=== PATIENT | female | born 1945 | race Caucasian/White ===

== ENCOUNTER → 2017-12-08 13:27 | Outpatient (CLI) | payer MEDICARE, OTHER, SELFPAY ==
[2017-12-08 14:19] LABS: Add Manual Diff / Slide Review NO; Basophils Percent Auto 0.9 % (0-2); Eosinophils Percent Auto 4.5 % (2-4); Hematocrit 38.3 % (36-46); Lymphocytes Percent Auto 23.6 % (25-40); Mean Corpuscular HGB Conc 34.1 % (30-36); Mean Corpuscular Volume 93.8 fL (80-100); Monocytes Percent Auto 6.6 % (3-14); Neutrophils Absolute Auto 6000 /uL (3000-5900); Neutrophils Percent Auto 64.4 % (50-75); Platelet Count 262 X10^3/uL (150-400); Red Blood Cell Count 4.08 X10^6/uL (4.0-5.2); Red Cell Distribution Width 13.8 % (11.6-14.8); White Blood Cell Count 9.3 X10^3/uL (4.5-11.0)
[2017-12-08 14:35] LABS: Carbon Dioxide 24 mmol/L (22-32); Chloride 110 mmol/L (98-107); HEMOLYSIS < 15 (0-50); Potassium 4.1 mmol/L (3.4-5.1); Sodium 146 mmol/L (137-145)
== END ==
PROVIDERS: Visit Provider Orthopaedic Surgery
DX: M16.12 Unilateral primary osteoarthritis, left hip (principal); Z01.818 Encounter for other preprocedural examination; Z01.812 Encounter for preprocedural laboratory examination
CPT/HCPCS: 36415; 80051; 85025; 93005; 93010

== ENCOUNTER 2017-12-13 09:14 | Inpatient (IN) | payer MEDICARE, OTHER, SELFPAY ==
[2017-12-10 12:14] VITALS: BMI 32.1
[2017-12-13] VITALS (14 sets, daily range): BP systolic 98–140; BP diastolic 59–89; PULSE 76–108; RESP 12–20; TEMP 35.7–36.4; O2SAT 90–98; BMI 32.1
--- NOTE | 2017-12-13 06:00 | DI.RAD.S_ITS ---
PROCEDURE: XR PELVIS 1-2V INDICATIONS: prosthesis placement TECHNIQUE: Single view(s) of the pelvis acquired. COMPARISON: None. FINDINGS: Bones: Patient is status post left total hip arthroplasty. Alignment of left hip is anatomic. Mild to moderate right hip joint osteoarthritis is seen. Soft tissues: Post surgical changes are noted in the left lateral thigh soft tissue. IMPRESSION: Post surgical changes from left total hip arthroplasty with anatomic left hip alignment. Dictated by: Delta Menjivar M.D. on 12/13/2017 at 13:55 Approved by: Delta Menjivar M.D. on 12/13/2017 at 13:56
[2017-12-13] MEDS: ACETAMINOPHEN 325 MG TABLET 975 MG PO ×2 (09:53→19:57)
[2017-12-13] MEDS: PREGABALIN 75 MG CAPSULE PO (09:53)
--- NOTE | 2017-12-13 10:12 | SUR.PREOP ---
PT STATED THAT SHE HAD A TOOTH EXTRACTED LAST WEDNESDAY AND HAS BEEN ON AN ANTIBIOTIC SINCE WEDNESDAY EVENING PROPHYLACTIC. PT STATES SHE HAS NO S/SX OF INFECTION. DR. PURVIS AWARE AND STATES OK TO PROCEED. PER DR. PURVIS, ANTIBIOTIC ORDER CHANGED TO CLINDAMYCIN 900MG INSTEAD OF ANCEF 1GM RELATED TO PT ALLERGY. COMMUNICATED THIS WITH CIRCULATING RN.
[2017-12-13] MEDS: LACTATED RINGERS 1,000 ML 42 ML IV (11:00)
[2017-12-13] MEDS: CLINDAMYCIN 900 MG/50 ML PIGGYBACK 50 MG IV (11:50)
--- NOTE | 2017-12-13 11:52 | PM.PREOP ---
Pre-operative Note Interval Note Pre-op Check: Yes History & Physical Reviewed by Physician Changes: No
--- NOTE | 2017-12-13 12:36 | SUR.OPER ---
Lateral on padded OR bed. Gel axillary roll. Arms secured on padded armboard with pillow supporting top arm. Padded hip positioner braces x4 - anterior and posterior chest and pelvis. Additional gel pad used anterior pelvis. Gel pad under bottom leg from knee to foot and secured with tape over sheet.
[2017-12-13] MEDS: BUPIVACAINE 0.25% W/ EPI VIAL 50 ML INJ (13:00)
[2017-12-13] MEDS: fentaNYL 100 MCG/2 ML INJ 50 MCG IV (13:57)
--- NOTE | 2017-12-13 14:19 | PM.OP.1 ---
Operative Date/Time/Diagnoses Date of procedure: 12/13/17 Time of procedure: 12:00 Pre-op diagnosis: Left hip degenerative joint disease Post-op diagnosis: same Procedure & Clinicians Procedure: Left total hip arthroplasty (CPT code 36821 with title i assistant) Indications: Patient is an 72-year-old female with severe left hip DJD. The patient has pain with activities and at rest, limited ambulation and activity tolerance, difficulties with ADLs, and failure of conservative treatment. We have discussed the nature of condition, treatment options, risks and benefits, and patient elects to proceed with total hip arthroplasty and gives informed consent. Surgeon: Grupo Moya Application Analyst: Janet Flores Anesthesia Type: General and Spinal Operative Notes Closure Type: primary Specimen(s): none sent Implants & Drains: Acetabulum: Strickland [employer] Nephew R3 acetabular component size 54 mm Femoral component: Strickland [employer] Nephew Synergy stem size 12 with standard offset Femoral head: 36 mm + 0 cobalt chrome Estimated Blood Loss (mL): 100 Blood products transfused: none Procedure in detail: After satisfaction induction of anesthetic, and administration of IV antibiotics, the patient was positioned in the lateral decubitus position with all bony prominences well padded and pelvic position secured using a hip foot cutter positioning device. Left hip and lower extremity prepped and draped in the usual sterile fashion, 1st dose of intravenous tranexamic acid was administered, then a longitudinal incision was created centered over the greater trochanter and carried sharply through the skin and subcutaneous tissues down to the fascia estefany which was divided longitudinally and retracted with a Charnley retractor. External rotators visualize, cut, tagged, and retracted posteriorly, then the capsule was cut in a T-type fashion with the corners tagged and retracted. Hip was dislocated and femoral neck cut made according to preoperative templating. Acetabular retractors then placed, and the acetabular labrum and osteophytes were excised. The acetabulum was then sequentially reamed to 53 mm with an excellent circumferential ream and fit with the trial. The trial component was removed and a permanent size 54 mm Strickland and Nephew R3 acetabular component was selected, positioned, and impacted with satisfactory position and fixation achieved. Permanent liner was then inserted with the elevated lip directed posteriorly. Soft tissue then removed off the lateral femoral neck in the lateral neck was entered using a box osteotome. T-handled reamers placed down the canal followed by sequential broaching to 12 with the final broach left in place for trial reduction which demonstrated excellent leg length, range of motion, and stability characteristics with a 36 mm +0 trial ball. The trial and broach were removed, and a permanent size 12 Strickland and Nephew Synergy stem was selected and inserted with excellent position and fixation achieved. Another trial reduction yielded the above characteristics so the trial ball was exchanged for a permanent 36 mm +0 cobalt chrome ball. The hip was irrigated and reduced and excellent leg length range of motion and stability characteristics were achieved and maintained. The hip was copiously irrigated, and the capsule repaired with #2 Ethibond, and the piriformis was repaired back to the greater trochanter with the same. Fascia estefany closed with interrupted #1 Ethibond sutures, and the subcutaneous tissues were closed in 2 layers of 0 Vicryl and 2 0 Vicryl. Skin was closed with deion and sterile dressings applied. Second dose of tranexamic acid was administered intravenously, and the anesthetic was terminated. Complications: none Condition: stable Disposition: PACU Plan for aftercare: Patient will be admitted to the acute care ruiz, and anticipate discharge on postop day 1 with follow-up in office in 10-14 days. Outpatient physical therapy will be arranged and patient will continue to observe posterior hip precautions. Patient will continue use of postoperative Lovenox for 10 days postop.
--- NOTE | 2017-12-13 14:23 | P.OP_ITS ---
Operative Date/Time/Diagnoses Date of procedure: 12/13/17 Time of procedure: 12:00 Pre-op diagnosis: Left hip degenerative joint disease Post-op diagnosis: same Procedure & Clinicians Procedure: Left total hip arthroplasty (CPT code 85283 with periodicals library assistant) Indications: Patient is an 72-year-old female with severe left hip DJD. The patient has pain with activities and at rest, limited ambulation and activity tolerance, difficulties with ADLs, and failure of conservative treatment. We have discussed the nature of condition, treatment options, risks and benefits, and patient elects to proceed with total hip arthroplasty and gives informed consent. Surgeon: Grupo Moya Hammer Operator: Janet Flores Anesthesia Type: General and Spinal Operative Notes Closure Type: primary Specimen(s): none sent Implants & Drains: Acetabulum: Strickland [employer] Nephew R3 acetabular component size 54 mm Femoral component: Strickland [employer] Nephew Synergy stem size 12 with standard offset Femoral head: 36 mm + 0 cobalt chrome Estimated Blood Loss (mL): 100 Blood products transfused: none Procedure in detail: After satisfaction induction of anesthetic, and administration of IV antibiotics, the patient was positioned in the lateral decubitus position with all bony prominences well padded and pelvic position secured using a hip supply chain systems manager positioning device. Left hip and lower extremity prepped and draped in the usual sterile fashion, 1st dose of intravenous tranexamic acid was administered, then a longitudinal incision was created centered over the greater trochanter and carried sharply through the skin and subcutaneous tissues down to the fascia estefany which was divided longitudinally and retracted with a Charnley retractor. External rotators visualize, cut, tagged, and retracted posteriorly, then the capsule was cut in a T-type fashion with the corners tagged and retracted. Hip was dislocated and femoral neck cut made according to preoperative templating. Acetabular retractors then placed, and the acetabular labrum and osteophytes were excised. The acetabulum was then sequentially reamed to 53 mm with an excellent circumferential ream and fit with the trial. The trial component was removed and a permanent size 54 mm Strickland and Nephew R3 acetabular component was selected, positioned, and impacted with satisfactory position and fixation achieved. Permanent liner was then inserted with the elevated lip directed posteriorly. Soft tissue then removed off the lateral femoral neck in the lateral neck was entered using a box osteotome. T-handled reamers placed down the canal followed by sequential broaching to 12 with the final broach left in place for trial reduction which demonstrated excellent leg length, range of motion, and stability characteristics with a 36 mm +0 trial ball. The trial and broach were removed, and a permanent size 12 Strickland and Nephew Synergy stem was selected and inserted with excellent position and fixation achieved. Another trial reduction yielded the above characteristics so the trial ball was exchanged for a permanent 36 mm +0 cobalt chrome ball. The hip was irrigated and reduced and excellent leg length range of motion and stability characteristics were achieved and maintained. The hip was copiously irrigated, and the capsule repaired with # 2 Ethibond, and the piriformis was repaired back to the greater trochanter with the same. Fascia estefany closed with interrupted #1 Ethibond sutures, and the subcutaneous tissues were closed in 2 layers of 0 Vicryl and 2 0 Vicryl. Skin was closed with deion and sterile dressings applied. Second dose of tranexamic acid was administered intravenously, and the anesthetic was terminated. Complications: none Condition: stable Disposition: PACU Plan for aftercare: Patient will be admitted to the acute care ruiz, and anticipate discharge on postop day 1 with follow-up in office in 10-14 days. Outpatient physical therapy will be arranged and patient will continue to observe posterior hip precautions. Patient will continue use of postoperative Lovenox for 10 days postop.
[2017-12-13] MEDS: LACTATED RINGERS 1,000 ML 125 ML IV ×2 (14:51→22:59)
--- NOTE | 2017-12-13 15:52 | PC.NURSE ---
Post-op: Late entry Arrived to room 218 at 1430. Wide awake and alert, oriented X3. Dressing to L hip C/D/I. Circulation and pulses WNL, cap refill <2 sec. Still numb from spinal, but is able to move her legs and wiggle her toes a little bit. Medicated with 1 tab Vicodin for 4/10 L hip pain, ice pack in place. SCD's to BLE's. Tolerating PO's, denies N/V. IVF per orders. SpO2 on RA 94%, cont pulse ox in place. Oriented to room and call light, encouraged to make needs known. Bed alarm on.
[2017-12-13] MEDS: cephALEXin 250 MG CAPSULE 500 MG PO ×2 (16:23→21:33)
[2017-12-13] MEDS: HYDROCODONE/ACET 5/325 TABLET 1 TAB PO (19:52)
[2017-12-13] MEDS: FLUTICASONE 120 SPRAY/16 GM SPRAY.SUSP NASAL (19:53)
[2017-12-13] MEDS: OLMESARTAN 20 MG TABLET PO (19:54)
[2017-12-13] MEDS: NEBIVOLOL 2.5 MG TABLET 5 MG PO (19:54)
[2017-12-13] MEDS: ASPIRIN EC 81 MG TABLET PO (19:54)
[2017-12-13] MEDS: CEFAZOLIN 2 GM/100 ML FROZ.PIGGY IV (19:55)
[2017-12-13] MEDS: ALPRAZolam 0.25 MG TABLET PO (21:33)
--- NOTE | 2017-12-13 22:10 | CM.MNRNOTE ---
Assumed care of pt from outgoing shift. pt settled in. pt given oral meds per Jun. pt placed on 1 l nc, pt desats to 90 on 1 l while asleep, pt increased to 2 l. Pt has been up and down with oxygenation. Pt 99% on 2 l then turned down and sustains, then pt will drop to 90. Pt remains on 2L saturation 97-99%. pt using IS. discussed hip precautions. Pt taken pain med per JUN. Pt uses call light. Pt voided once with bedpan. pt ate dinner and had a snack, sandwich, cheese stick and ic cream. pt tolerated well with no compliant of nausea, advanced to regular diet in orders. no further needs at this time, will continue to monitor.
[2017-12-14] VITALS (7 sets, daily range): BP systolic 92–129; BP diastolic 54–84; PULSE 77–102; RESP 16–20; TEMP 36.5–36.7; O2SAT 95–98
[2017-12-14] MEDS: HYDROCODONE/ACET 5/325 TABLET 1 TAB PO ×5 (00:57→20:48)
[2017-12-14] MEDS: CEFAZOLIN 2 GM/100 ML FROZ.PIGGY IV (04:19)
[2017-12-14 05:28] LABS: Hematocrit 33.8 % (36-46); Hemoglobin 11.8 g/dL (12.0-16.0)
[2017-12-14] MEDS: LEVOTHYROXINE 75 MCG TABLET PO (05:47)
--- NOTE | 2017-12-14 06:09 | PC.NURSE ---
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 Assisted with 2PA, FWW and gait belt to stand and pivot to the BSC. Hip precautions maintained. Pt able to void but no BM. Pt appears dyspnic with activity, sats on RA 90%, pt reports that she has been having shortness of breath with activity for a few months. Once back into bed, medicated with prn Vicodin for 5/10 pain to left hip. Dressing to the left hip is CDI.
[2017-12-14] MEDS: ASPIRIN EC 81 MG TABLET PO ×2 (08:55→20:49)
[2017-12-14] MEDS: ENOXAPARIN 40 MG/0.4 ML SYRINGE SUBCUT (08:55)
[2017-12-14] MEDS: ACETAMINOPHEN 325 MG TABLET 975 MG PO (08:55)
[2017-12-14] MEDS: cephALEXin 250 MG CAPSULE 500 MG PO ×3 (08:55→20:48)
[2017-12-14] MEDS: SODIUM CHLORIDE 0.9% FLUSH 10 ML IV ×2 (08:57→20:48)
--- NOTE | 2017-12-14 09:02 | CM.DPC ---
Addendum entered by Micki Dawn R.N. 12/14/17 14:33: This is discharge assessment, stated continue in error. Have signed face to face, may be discharged tomorrow, will need to find out which agency she wishes to choose Original Note: DCP: Case received, EMR reviewed and met with patient. Introduced self and role. DCP template complete with information currently available. Patient is a 72 year old female who admitted yesterday morning to the care of the hospitalist team. PCP: Dr. Loza. Payer: confirmed: Medicare/Commercial Insurance. Patient came to hospital and had left total hip arthroplasty. Had been having left pain prior to surgery. Patient lives alone in [place], a few years ago. Lives in a one level home, and has several friends that are supportive. Discussed physical therapy when she goes home, and she is wanting home health to come in. Gave her a Medicare choice list to review. P: DCP to continue to assess. Plan is to go home with home health. Micki Dawn RN/Machine Joiner Cementer
[2017-12-14] MEDS: hydrOXYzine pamoate 25 MG CAPSULE PO ×2 (10:35→20:49)
--- NOTE | 2017-12-14 11:03 | PT.IIE ---
Current Diagnoses Unilateral primary osteoarthritis, left hip (12/13/17) Surgery Performed Operation Date: 12/13/17 11:45 Actual Procedures p Total Hip Arthroplasty(Left) - Grupo Moya MD Surgical History (Last Updated 12/10/17 @ 12:51 by Anita Bermudez RN) Hx of hand surgery (Acute) Status post cataract extraction of both eyes with insertion of intraocular lens (Acute) Status post complete hysterectomy (Acute) Status post surgery of both feet (Acute) Medical History (Last Updated 12/10/17 @ 12:46 by Anita Bermudez RN) Anxiety (Acute) Depression (emotion) (Acute) HTN (hypertension) (Acute) Hearing loss (Acute) Hx of tooth extraction (Acute) Hypothyroid (Acute) Irritable bowel syndrome (IBS) (Acute) Seasonal allergies (Acute) Physical Therapy Inpatient Evaluation/Re-Eval Medical Review Prior Functional Status Medical History Reviewed Yes Diet/Fluid Consistency Regular Communication no known deficits Mobility and Gait ind to mod ind w/ SPC, denies falls Activities of Daily Living and IADL's ind Social History Household Members none Living Arrangements House Number of Floors (Floors) One Floor Number of Stairs To Enter/Railing? 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 [facility] back and forth Physical Therapy Current Condition Current Condition Evaluation Date 12/14/17 Treatment Diagnosis L posterior SOWMYA - impaired mobility Onset Date 12/14/17 Precautions Posterior Hip Precautions No Hip Flexion > 90 degrees No Hip Internal Rotation No Hip Adduction Weight Bearing Status Weight Bearing Status Weight Bear as Tolerated Subjective Physical Therapy Visit Type Type Initial Evaluation Visit Start Time 09:20 Visit Stop Time 10:27 Total Visit Minutes 67 Physical Therapy Visit Comments Patient Comments Pt wasn't expecting to have this much pain s/p surgery, but reports doing well overall , very motivated. Therapy Pain Assessment Pain When Pain Assessed During Mobility Pain Present Pain Present Pain Reported Location left hip Intensity 6 Scale Used Numeric (1 - 10) Description Aching Pulling Throbbing With Movement Pain Management Techniques Apply Cold Elevation Modification of Treatment Re-positioning Timing of Activity with Medications PT-Bed Mobility Assessment Supine to Sit Supine to Sit Minimal Assistance 1 Person Assistance Scooting Scooting to Edge of Bed Standby Assistance PT-Transfer Assessment Sit to and From Stand Sit to and from Stand Minimal Assistance Equipment Transfer Assistive Device Gait Belt Front Wheeled Walker Transfers Transfer Destination Chair Transfer Technique Stand Step Pivot Transfer Ability Level of Assist Minimal Assistance Comments Mobility Comments Pt is able to go from supine to long sit without assist, but for this hospital bed pt needing assist with the LLE and pulling of stacey pad to pivot pelvis in the bed. Once to EOB, pt needing barely min A to get up to standing, cues provided for sit<>Stand technique. Gait Assessment Gait Gait Assistance Required: Contact Guard Assist Distance (Feet) (feet) 40 Assistive Devices Assistive Device Gait Belt Front Wheeled Walker Gait Deviations General Gait Pattern Antalgic Flexed Trunk Factors Limiting Gait Function Factors Limiting Gait Function Decreased Activity Tolerance Decreased Strength Pain Comments Gait Comments Pt initially using a step-to pattern, but with cues and indepth explanation offered as to rationale for reciprocal gait, pt was able to amb with full length steps. Pt does tend to have a forward trunk lean but can correct when cued . Pt very stable, no LOBs, definite use of BUE for support. Stair Climbing Assessment Comments Stair Climbing Comments not yet tested PT-Balance Assessment Sitting Balance and Reactions Static Sitting Balance Ability Normal Dynamic Sitting Balance Ability Good Standing Balance and Reactions Static Standing Balance Ability Good Dynamic Standing Balance Ability Fair Device Used FWW Orientation Orientation/Cognition Level of Alertness Alert Orientation Name Age Birthday Month Date Year Day of Week Place Situation Language Function Ability No Deficits Noted Safety Awareness Understands Safety Issues Memory Description No Deficits Noted Gross Range of Motion Upper Extremity ROM Assessment Within Functional Limits Lower Extremity ROM Assessment Within Functional Limits Impairments within hip precautions Strength Upper Extremity Strength Assessment Within Functional Limits Comments Strength Comments not formally tested, pt needing assist with LLE AROM exercises, LLE grossly 3-/5, RLE grossly 4+/5 Physical Therapy Treatment Exercises Exercises Ankle Pumps Gluteal Sets Quad Sets Heel Slides Supine Hip Abduction Education Education Provided Precautions Weight Bearing Status Post-Op Packet Safety PT Summary Assessment and Plan Potential Rehabilitation Potential Excellent Status of Condition at Evaluation Stable Summary Impairments Pain Strength Bed Mobility Transfers Gait Activity Tolerance Progress Towards Goals Progressing Toward Goals Assessment Summary Pt is POD#1 L posterior SOWMYA. Pt presents with expected weakness and pain resulting in the need for min A with all mobility. This is below pt's reported functional baseline, but pt has great potential for functional improvement. Pt will benefit from ongoing acute PT to progress mobility and have pt's sister(s) participate in family training . Pt will be safe to discharge home tomorrow once this training has occurred and will need to continue working with HHPT. Goals Bed Mobility Goal Standby Assistance Transfer Goal Standby Assistance Gait Goal Standby Assistance Front Wheel Walker Gait Distance 100 Other Goals Up/down 3 steps w/ 1 rail and CGA. Days to Meet Goals 1 Frequency of Treatment Frequency Of Treatment Twice a Day Treatment Plan Physical Therapy Treatment Plan Bed Mobility Training Transfer Training Gait Training Therapeutic Exercise Balance Retraining Post Op Education Discharge Planning Hot or Cold Pack Neuromuscular Re-ed Coordination Retraining Manual Therapy Other Recommendations and Next Treatment family training with sister(s) Focus Recommendations To Nursing Amount of Assist Needed 1 Person Assist Discharge Recommendations PT Discharge Recommendations Home with Assistance Home Health
--- NOTE | 2017-12-14 12:23 | PC.NURSE ---
day shift pt states pain controlled with PO meds. Pt not cleared by PT for d/c, will stay another night. d/c order cancelled. up in chair, using FWW. working with PT. hourly rounding provided, call light within reach.
--- NOTE | 2017-12-14 13:26 | P.PN_ITS ---
Subjective Date Patient Seen: 12/14/17 Time Patient Seen: 07:22 Interval history: Patient is postop day 1 status post left total hip arthroplasty by Dr. Moya. No complaints of much pain in the hip. Eating and drinking well and able to urinate without difficulty. States that she maybe want to go home this evening but is willing to stay if needed. She has a small animal caretaker arriving this evening. [facility] patient and has discharge medications already. Taking hydrocodone for pain. Exam Vital Signs (past 8 hours): - 12/14/17 00:34 12/14/17 04:25 12/14/17 07:15 Temperature 97.8 F 97.8 F 97.7 F Pulse Rate 102 H 97 H 77 Respiratory Rate 20 18 16 Blood Pressure 120/76 122/84 93/58 L Pulse Oximetry 98 96 96 Oxygen Delivery Method Nasal Cannula Oxygen Flow Rate 1 Narrative Exam Narrative: Patient in bed. Appears comfortable. Alert and orient x3. Left hip dressing clean dry and intact. Moderate swelling on left anterior thigh. 5/5 left ankle strength. Bilateral calves soft and nontender. Neurovascular status intact. Objective Labs Result Diagrams: 12/14/17 05:04 Labs: Laboratory Results - last 24 hr 12/14/17 05:04 Hgb 11.8 L Hct 33.8 L Assessment & Plan Post-op Postoperative Procedures Operation Date: 12/13/17 11:45 Actual Procedures Side Surgeon p Total Hip Arthroplasty Left Grupo Moya MD Postop day 1. Patient has physical therapy this morning and was recommended that she not be discharged home today by PT. Continue physical therapy. Continue DVT prophylaxis with Lovenox. Continue pain medication with hydrocodone. Anticipate discharge home tomorrow. Quality VTE Deep Vein Thrombosis/Pulmonary Embolism Present on Admission: No
--- NOTE | 2017-12-14 15:37 | PT.IPTN ---
Current Diagnoses Unilateral primary osteoarthritis, left hip (12/13/17) Surgery Performed Operation Date: 12/13/17 11:45 Actual Procedures p Total Hip Arthroplasty(Left) - Grupo Moya MD Physical Therapy Treatment Note Physical Therapy Current Condition Current Condition Evaluation Date 12/14/17 Treatment Diagnosis L posterior SOWMYA - impaired mobility Onset Date 12/14/17 Precautions Posterior Hip Precautions No Hip Flexion > 90 degrees No Hip Internal Rotation No Hip Adduction Weight Bearing Status Weight Bearing Status Weight Bear as Tolerated Subjective Physical Therapy Visit Type Type Treatment Note Visit Start Time 14:41 Visit Stop Time 15:11 Total Visit Minutes 30 Physical Therapy Visit Comments Patient Comments Pt feels like she's improving already, standing up is getting easier. Short Term Goals go home tomorrow Therapy Pain Assessment Pain When Pain Assessed During Mobility Pain Present Pain Present Pain Reported PT-Transfer Assessment Sit to and From Stand Sit to and from Stand Contact Guard Assistance Equipment Transfer Assistive Device Gait Belt Front Wheeled Walker Transfers Transfer Destination Chair Transfer Technique Stand Step Pivot Transfer Ability Level of Assist Contact Guard Assistance Comments Mobility Comments Pt is able to stand up from chair and bed with less assist , is able to do so while adhering to hip precautions. Gait Assessment Gait Gait Assistance Required: Contact Guard Assist Distance (Feet) (feet) 75 Assistive Devices Assistive Device Gait Belt Front Wheeled Walker Gait Deviations General Gait Pattern Antalgic Flexed Trunk Factors Limiting Gait Function Factors Limiting Gait Function Decreased Activity Tolerance Decreased Strength Pain Comments Gait Comments More fluid reciprocal pattern, still needs cues for upright posture. Stair Climbing Assessment Comments Stair Climbing Comments not yet tested PT-Balance Assessment Sitting Balance and Reactions Static Sitting Balance Ability Normal Dynamic Sitting Balance Ability Good Standing Balance and Reactions Static Standing Balance Ability Good Dynamic Standing Balance Ability Fair Device Used FWW Orientation Orientation/Cognition Level of Alertness Alert Orientation Name Age Birthday Month Date Year Day of Week Place Situation Language Function Ability No Deficits Noted Safety Awareness Understands Safety Issues Memory Description No Deficits Noted Gross Range of Motion Upper Extremity ROM Assessment Within Functional Limits Lower Extremity ROM Assessment Within Functional Limits Impairments within hip precautions Strength Upper Extremity Strength Assessment Within Functional Limits Comments Strength Comments not formally tested, pt needing assist with LLE AROM exercises, LLE grossly 3-/5, RLE grossly 4+/5 Physical Therapy Treatment Education Education Provided Precautions Weight Bearing Status Post-Op Packet Safety PT Summary Assessment and Plan Potential Rehabilitation Potential Excellent Status of Condition at Evaluation Stable Summary Impairments Pain Strength Bed Mobility Transfers Gait Activity Tolerance Progress Towards Goals Progressing Toward Goals Assessment Summary POD#1 L posterior SOWMYA. Pt has shown good improvement in functional mobility already. Anticipate after family training tomorrow that pt will be safe to discharge home with HHPT. Goals Bed Mobility Goal Standby Assistance Transfer Goal Standby Assistance Gait Goal Standby Assistance Front Wheel Walker Gait Distance 100 Other Goals Up/down 3 steps w/ 1 rail and CGA. Days to Meet Goals 1 Frequency of Treatment Frequency Of Treatment Twice a Day Treatment Plan Physical Therapy Treatment Plan Bed Mobility Training Transfer Training Gait Training Therapeutic Exercise Balance Retraining Post Op Education Discharge Planning Hot or Cold Pack Neuromuscular Re-ed Coordination Retraining Manual Therapy Other Recommendations and Next Treatment family training with sister(s) Focus at 930am, needs stairs Recommendations To Nursing Amount of Assist Needed 1 Person Assist
--- NOTE | 2017-12-14 16:47 | OT.IP.EVAL ---
Current Diagnoses Unilateral primary osteoarthritis, left hip (12/13/17) Surgery Performed Operation Date: 12/13/17 11:45 Actual Procedures p Total Hip Arthroplasty(Left) - Grupo Moya MD Past Medical History (Last Updated 12/10/17 @ 12:46 by Anita Bermudez, RN) Anxiety (Acute) Depression (emotion) (Acute) HTN (hypertension) (Acute) Hearing loss (Acute) Hx of tooth extraction (Acute) Hypothyroid (Acute) Irritable bowel syndrome (IBS) (Acute) Seasonal allergies (Acute) Surgical History (Last Updated 12/10/17 @ 12:51 by Anita Bermudez, DEEPAK) Hx of hand surgery (Acute) Status post cataract extraction of both eyes with insertion of intraocular lens (Acute) Status post complete hysterectomy (Acute) Status post surgery of both feet (Acute) Occupational Therapy Inpatient Evaluation/Re-Eval M1 PT/OT-IP Prior Functional Status Start: 12/14/17 08:05 Freq: NEEDED Status: Active Protocol: Document 12/14/17 15:11 RS (Rec: 12/14/17 15:37 RS [id number]) Medical Review Prior Functional Status Medical History Reviewed Yes Diet/Fluid Consistency Regular Communication no known deficits Mobility and Gait ind to mod ind w/ SPC, denies falls Activities of Daily Living and IADL's ind Social History Household Members none Living Arrangements House Number of Floors (Floors) One Floor Number of Stairs To Enter/Railing? 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 forth M2 OT-IP Current Condition Start: 12/14/17 16:24 Freq: Status: Active Protocol: Document 12/14/17 16:25 [facility] (Rec: 12/14/17 16:47 [facility] [id number]) Occupational Therapy Current Condition Current Condition Evaluation Date 12/14/17 Treatment Diagnosis Left Hip Degenerative Joint disease Diagnosis Onset Date 12/13/17 Post Operative Precautions Posterior Hip Precautions No Hip Flexion > 90 degrees No Hip Internal Rotation No Hip Adduction Weight Bearing Status Weight Bearing Status Weight Bear as Tolerated M3 OT- IP Subjective and Pain Start: 12/14/17 16:24 Freq: Status: Active Protocol: Document 12/14/17 16:25 [facility] (Rec: 12/14/17 16:47 [facility] [id number]) OT- Subjective Occupational Therapy Visit Type Type Initial Evaluation Visit Start Time 15:20 Visit Stop Time 15:50 Total Visit Minutes 30 OT Pain Assessment Pain When Pain Assessed At Rest Pain Present Pain Present Denied Pain M4 OT- IP ADL's Start: 12/14/17 16:24 Freq: Status: Active Protocol: Document 12/14/17 16:25 [facility] (Rec: 12/14/17 16:47 [facility] [id number]) OT ARI-Bkiu-Briwtig General Evaluation Self-Feeding Ability Independent OT ADL-Dressing General Eval Lower Body Dressing Ability Maximum Assistance Comments OT Dressing Comments Able to educated pt on AED for LB dressing with cnc mill set up operator and shoe horn. Recommended pt to sit to put on shoes, pt wanting to stand but still having weakness in LLE. Educated to aneta LLE first and take out last. M5 OT- IP IADL's Start: 12/14/17 16:24 Freq: Status: Active Protocol: Document 12/14/17 16:25 [facility] (Rec: 12/14/17 16:47 [facility] [email or web address]) OT-Instrumental Activities of Daily Living Home Safety Awareness Awareness of Need for Assistance at Home Good Awareness Ability to Problem Solve Emergency Able to Problem Solve Situations Home Safety Comments Pt's sister to come and stay with her to assist. M6 OT- IP Functional Cognition Start: 12/14/17 16:24 Freq: Status: Active Protocol: Document 12/14/17 16:25 [facility] (Rec: 12/14/17 16:47 [facility] [id number]) Cognitive Factors Limiting Selfcare Function Cognitive Ability Level of Alertness Alert Patient Orientation Name Place Situation Attention Span Ability Capable of Focused Attention Capable of Sustained Attention Ability to Follow Commands Able to Follow One Step Commands Memory Description Short Term Impaired Safety Awareness Decreased Ability to Apply Precautions Underestimates Need for Assistance Problem Solving Ability Needs Assist to Identify Solutions Cognitive Comments Cognitive Assessment Comments Pt a bit impulsive and needing concrete commands. Pt needing vc to recall hip precautions. OT- Vision and Hearing OT- Hearing Assessment OT- Hearing Assessment WFL M7 OT- IP Mobility and Balance Start: 12/14/17 16:24 Freq: Status: Active Protocol: Document 12/14/17 16:25 [facility] (Rec: 12/14/17 16:47 [facility] [email or web address]) OT-Transfer Assessment Sit to and From Stand Sit to and from Stand Contact Guard Assistance Transfers Transfer Ability Contact Guard Assistance Technique Transfer Destination Chair Transfer Technique Stand Step Pivot Devices Transfer Assistive Devices Gait Belt Front Wheeled Walker OT- Balance Assessment Sitting Balance and Reactions Static Sitting Balance Ability Normal Dynamic Sitting Balance Ability Good Standing Balance and Reactions Static Standing Balance Ability Good Dynamic Standing Balance Ability Fair M8 OT- IP Objective Assessments Start: 12/14/17 16:24 Freq: Status: Active Protocol: Document 12/14/17 16:25 [facility] (Rec: 12/14/17 16:47 [facility] [id number]) OT Gross Range of Motion Upper Extremity Range of Motion Assessment Within Functional Limits OT Strength Upper Extremity Strength Assessment Within Functional Limits Comments Strength Comments BUE 4+/5 OT-Muscle Tone Assessment Muscle Tone WNL Yes M9 OT- IP Assessment and Plan Start: 12/14/17 16:24 Freq: Status: Active Protocol: Document 12/14/17 16:25 [facility] (Rec: 12/14/17 16:47 [facility] [id number]) OT Summary Assessment and Plan Potential Rehabilitation Potential Excellent Analytic Complexity at Evaluation Low Summary OT Impairments Pain Strength Balance Functional Cognition Functional Mobility Dressing Toileting Bathing Toilet Transfers Shower Transfers Progress Towards Goals Slow Progress due to Pain Slow Progress due to Cognition Assessment Summary Pt Low complexity and main barrier is steps, decreased safety awareness, and needing reminders to incorporate hip precations during needs. Pt looking to go home with sister to assist when medically stable. Goals Grooming Goal Standby Assistance Dressing Goal Standby Assistance Toileting Goal Standby Assistance Bathing Goal Minimal Assistance Toilet Transfer Goal Standby Assistance Shower Transfer Goal Contact Guard Assistance Patient/Caregiver Education Goal Demonstrate Post-Op Precautions Caregiver Independent Assisting Patient Days to Meet Goals 2 Frequency of Treatment Frequency Of Treatment Once a Day Treatment Plan OT Treatment Plan ADL Training Functional Cognition Training Functional Mobility Patient/Family Education Discharge Planning Other Treatment Recommendations and Next Shower and family training. Treatment Focus Discharge Recommendations OT Discharge Recommendations Home with Assistance Home Equipment Needs shower chair, BSC, rails for steps
[2017-12-14] MEDS: FLUTICASONE 120 SPRAY/16 GM SPRAY.SUSP NASAL (20:48)
[2017-12-14] MEDS: NEBIVOLOL 2.5 MG TABLET 5 MG PO (20:48)
[2017-12-14] MEDS: OLMESARTAN 20 MG TABLET PO (20:49)
--- NOTE | 2017-12-14 22:21 | PC.NURSE ---
Assumed care of pt from outgoing shift. pt up in chair, friends in room visiting. complained of pain and given med per MAR. will continue to monitor. will assess pt after they leave. 1800- pt ate dinner. assessment completed and charted. belongings and call light within reach. still sitting in chair. coversite c.d.i. ice to site. on room air, sitting comfortably. Pt has been using IS. uses call light. waits for assistance. will continue to monitor pt for safety.
[2017-12-15] MEDS: HYDROCODONE/ACET 5/325 TABLET 1 TAB PO ×3 (01:37→13:06)
[2017-12-15 01:42] VITALS: BP 107/64; PULSE 77; RESP 16; TEMP 36.7; O2SAT 98
[2017-12-15] MEDS: ALPRAZolam 0.25 MG TABLET PO (01:48)
[2017-12-15 06:18] VITALS: BP 122/51; PULSE 80; RESP 16; TEMP 36.8; O2SAT 99
[2017-12-15] MEDS: LEVOTHYROXINE 75 MCG TABLET PO (06:20)
--- NOTE | 2017-12-15 07:59 | P.DS_ITS ---
History of Present Illness Date Patient Seen: 12/15/17 Time Patient Seen: 07:53 Chief complaint: [id number] Narrative: Details of the H&P can be found in the electronic chart. Discharge Providers Date of admission: 12/13/17 09:14 Consults: 12/13/17 14:39 Consult to Discharge Planning Routine Comment: Consult to Physical Therapy Evaluate & Treat Comment: Physician Instructions: post op SOWMYA protocol Consult to Respiratory Therapy Evaluate & Treat Comment: Physician Instructions: Evaluate and treat 12/13/17 14:55 Consult to Respiratory Therapy Evaluate & Treat Comment: Physician Instructions: Evaluate and treat 12/14/17 14:22 Consult to Occupational Therapy Evaluate & Treat Comment: Physician Instructions: Evaluate and treat Discharge provider: Mei Henderson PA-C Summary Discharge Diagnosis: Left hip osteoarthritis Hospital Course: Patient was admitted and taken to the operating room where she had a left total hip arthroplasty by Dr. Moya. She recovered well and transferred to the floor for further care. By postop day 2 patient was ambulating well, eating and drinking well, pain under control, and was ready to be discharged home. She will be discharged home with home health physical therapy. A prescription for Lovenox 40 mg daily for 8 days given. She is a [facility] patient and has her discharge pain prescription already, [place] 5mg. She has her 1st postoperative appointment already scheduled. Status at Discharge Cognitive/behavioral status at discharge: Alert and orient x3 Functional status at discharge: uses cane/walker Overall status at discharge: patient is progressing back to baseline Time Spent with Patient Less than 30 minutes Exam Vital Signs (past 8 hours): - 12/15/17 01:42 12/15/17 06:18 Temperature 98.1 F 98.2 F Pulse Rate 77 80 Respiratory Rate 16 16 Blood Pressure 107/64 122/51 L Pulse Oximetry 98 99 Oxygen Delivery Method Room Air Oxygen Flow Rate 0 Narrative Exam Narrative: Patient in bed. Alert and orient x3. Appears comfortable. Left hip dressing clean, dry and intact. Moderate swelling in left thigh. Bilateral calves soft and nontender. 5/5 left ankle strength. Neurovascular status intact. Objective Labs Result Diagrams: 12/14/17 05:04 Discharge Plan Discharge Plan Patient Disposition: Home Health Service Discharge comment: Take Lovenox for 8 days then start ASA 81mg daily. Do not take more than 4000mg of Tylenol per day from all sources. Discharge Med Rec/Prescriptions Prescriptions: New acetaminophen 325 mg Tablet 650 mg PO DAILY PRN (Reason: Pain (Scale Score 4-6)) Qty: 60 RF: 0 hydrocodone-acetaminophen 5-325 mg Tablet 1 tab PO Q4HR PRN (Reason: Pain, Moderate (4-6)) Qty: 60 RF: 0 enoxaparin [Lovenox] 40 mg/0.4 mL Syringe 40 mg subcut DAILY 9 Days Qty: 9 RF: 0 Continue alprazolam [Xanax] 0.25 mg Tablet 0.25 mg PO DAILY PRN (Reason: Anxiety) RF: 0 fluticasone [Flonase Allergy Relief] 50 mcg/actuation [place],Suspension 1 spray INTRANASAL BEDTIME RF: 0 olmesartan [Benicar] 20 mg Tablet 20 mg PO BEDTIME RF: 0 nebivolol [Bystolic] 10 mg Tablet 5 mg PO BEDTIME RF: 0 levothyroxine 75 mcg Capsule 75 mcg PO DAILY RF: 0 cephalexin [Keflex] 500 mg Capsule 500 mg PO TID RF: 0 Discontinued acetaminophen [Tylenol Extra Strength] 500 mg Tablet 1,000 mg PO Q6H PRN (Reason: pain) RF: 0 Follow up/Referrals: Grupo Moya MD [Physician] - (Follow-up at scheduled appointment time. Contact office with any issues or concerns.) Provider Discharge Instructions Diet: Diet as Tolerated Activity: Activity as tolerated. Continue home exercises. Posterior hip dislocation precautions. Ambulate with assistance of a walker/cane. Cold/Heat Therapy: Apply ice to the extremity as needed for pain or inflammation. Skin/Wound/Dressing Care Report to your healthcare provider any signs of infection, such as:: chills, fever, increased pain and unusual drainage Dressing: Keep dressing clean, dry and intact. Visit Report/Discharge Packet Instructions: DI for Hip Replacement Discharge Data Attending Provider: Grupo Moya Admit Date/Time: 12/13/17 09:14 Quality VTE Deep Vein Thrombosis/Pulmonary Embolism Present on Admission: No
[2017-12-15 08:00] VITALS: BP 116/56; PULSE 78; RESP 18; TEMP 36.6; O2SAT 98
[2017-12-15] MEDS: ASPIRIN EC 81 MG TABLET PO (09:14)
[2017-12-15] MEDS: cephALEXin 250 MG CAPSULE 500 MG PO (09:14)
[2017-12-15] MEDS: ACETAMINOPHEN 325 MG TABLET 975 MG PO (09:16)
[2017-12-15] MEDS: ENOXAPARIN 40 MG/0.4 ML SYRINGE SUBCUT (09:16)
[2017-12-15] MEDS: SODIUM CHLORIDE 0.9% FLUSH 10 ML IV (09:17)
--- NOTE | 2017-12-15 11:15 | PT.IPTN ---
Current Diagnoses Unilateral primary osteoarthritis, left hip (12/13/17) Surgery Performed Operation Date: 12/13/17 11:45 Actual Procedures p Total Hip Arthroplasty(Left) - Grupo Moya MD Physical Therapy Treatment Note M2 PT-IP Current Condition Start: 12/14/17 08:05 Freq: NEEDED Status: Active Protocol: Document 12/14/17 15:11 RS (Rec: 12/14/17 15:37 RS [id number]) Physical Therapy Current Condition Current Condition Evaluation Date 12/14/17 Treatment Diagnosis L posterior SOWMYA - impaired mobility Onset Date 12/14/17 Precautions Posterior Hip Precautions No Hip Flexion > 90 degrees No Hip Internal Rotation No Hip Adduction Weight Bearing Status Weight Bearing Status Weight Bear as Tolerated M3 PT-IP Subjective Start: 12/14/17 08:05 Freq: NEEDED Status: Active Protocol: Document 12/15/17 11:15 GGD (Rec: 12/15/17 12:39 GGD [id number]) Subjective Physical Therapy Visit Type Type Treatment Note Visit Start Time 10:35 Visit Stop Time 11:15 Total Visit Minutes 40 Number of MS SQL DEVELOPER Visits 1 Physical Therapy Visit Comments Patient Comments Pt states that she can go into the house from back door without stairs. Therapy Pain Assessment Pain When Pain Assessed At Rest Pain Present Pain Present Pain Reported Location left hip Intensity 3 Scale Used Numeric (1 - 10) Pain Management Techniques Modification of Treatment Re-positioning Timing of Activity with Medications M4 PT-IP Mobility and Gait Start: 12/14/17 08:05 Freq: NEEDED Status: Active Protocol: Document 12/15/17 11:15 GGD (Rec: 12/15/17 12:39 GGD [id number]) PT-Bed Mobility Assessment Supine to Sit Supine to Sit Minimal Assistance 1 Person Assistance Sit to Supine Sit to Supine Minimal Assistance 1 Person Assistance Scooting Scooting to Edge of Bed Standby Assistance PT-Transfer Assessment Sit to and From Stand Sit to and from Stand Standby Assistance Use of Upper Extremities Equipment Transfer Assistive Device Gait Belt Front Wheeled Walker Transfers Transfer Destination Chair Transfer Ability Level of Assist Contact Guard Assistance Comments Mobility Comments Pt needed min A for L LE for bed mobility. home health caregiver training for bed mobility. Gait Assessment Gait Gait Assistance Required: Contact Guard Assist Distance (Feet) (feet) 50 Assistive Devices Assistive Device Gait Belt Front Wheeled Walker Gait Deviations General Gait Pattern Antalgic Factors Limiting Gait Function Factors Limiting Gait Function Decreased Strength Limited Range of Motion Pain M5 PT-IP Objective Assessments Start: 12/14/17 08:05 Freq: NEEDED Status: Active Protocol: Document 12/14/17 10:27 RS (Rec: 12/14/17 11:03 RS [id number]) Orientation Orientation/Cognition Level of Alertness Alert Orientation Name Age Birthday Month Date Year Day of Week Place Situation Language Function Ability No Deficits Noted Safety Awareness Understands Safety Issues Memory Description No Deficits Noted Gross Range of Motion Upper Extremity ROM Assessment Within Functional Limits Lower Extremity ROM Assessment Within Functional Limits Impairments within hip precautions Strength Upper Extremity Strength Assessment Within Functional Limits Comments Strength Comments not formally tested, pt needing assist with LLE AROM exercises, LLE grossly 3-/5, RLE grossly 4+/5 M6 PT-IP Treatment Start: 12/14/17 08:05 Freq: NEEDED Status: Active Protocol: Document 12/15/17 11:15 GGD (Rec: 12/15/17 12:39 GGD [id number]) Physical Therapy Treatment Exercises Exercises Ankle Pumps Gluteal Sets Quad Sets Education Education Provided Precautions Safety M7 PT-IP Assessment and Plan Start: 12/14/17 08:05 Freq: NEEDED Status: Active Protocol: Document 12/15/17 11:15 GGD (Rec: 12/15/17 12:39 GGD [id number]) PT Summary Assessment and Plan Summary Assessment Summary Pt improving with mobility. She was safe with transfer and gait. She had no LOB with gait. Caregiver was able to assist with bed mobility and use of leg screw machine set up operator tool. Frequency of Treatment Frequency Of Treatment Twice a Day Treatment Plan Physical Therapy Treatment Plan Bed Mobility Training Transfer Training Gait Training Therapeutic Exercise Balance Retraining Post Op Education Discharge Planning Hot or Cold Pack Neuromuscular Re-ed Coordination Retraining Manual Therapy Other Recommendations and Next Treatment family training with sister(s) Focus at 930am, Recommendations To Nursing Amount of Assist Needed 1 Person Assist Discharge Recommendations PT Discharge Recommendations Home with Assistance Home Health
--- NOTE | 2017-12-15 11:52 | CM.DPC ---
DCP: continued: case received, d/c to home order noted. Spoke with ortho LOIDA Hurley who noted pt would be fine to go home with PT and that noo other disciplines were recommend by the ortho physician team at this time. Met now with pt after EMR review. Face/Face completed. Confirmed pt has a PCP in [place] but not in [place]. She resides in [place] only 4 months of year, will return to [place] in Jan. /Medicare/choice list: given. Decision: [facility] ([facility] has no availability with PT for several days. [facility] is full [facility] accepts case and expects to go out by Sunday 12/17). Pt is updated. PT orders are obtained. [facility] is faxing all needed referral info now. P: home today, sister and friend taking her and provided supportive care at home.
--- NOTE | 2017-12-15 12:23 | OT.IP.TRT ---
Current Diagnoses Unilateral primary osteoarthritis, left hip (12/13/17) Surgery Performed Operation Date: 12/13/17 11:45 Actual Procedures p Total Hip Arthroplasty(Left) - Grupo Moya MD Occupational Therapy Treatment Note M2 OT-IP Current Condition Start: 12/14/17 16:24 Freq: Status: Active Protocol: Document 12/14/17 16:25 [facility] (Rec: 12/14/17 16:47 [facility] [id number]) Occupational Therapy Current Condition Current Condition Evaluation Date 12/14/17 Treatment Diagnosis Left Hip Degenerative Joint disease Diagnosis Onset Date 12/13/17 Post Operative Precautions Posterior Hip Precautions No Hip Flexion > 90 degrees No Hip Internal Rotation No Hip Adduction Weight Bearing Status Weight Bearing Status Weight Bear as Tolerated M3 OT- IP Subjective and Pain Start: 12/14/17 16:24 Freq: Status: Active Protocol: Document 12/15/17 12:09 [facility] (Rec: 12/15/17 12:22 [facility] [id number]) OT- Subjective Occupational Therapy Visit Type Type Treatment Note Visit Start Time 09:37 Visit Stop Time 10:17 Total Visit Minutes 40 Occupational Therapy Visit Comments Patient Comments Pt wanting to shower prior to going home, sister and friend present for training. OT Pain Assessment Pain When Pain Assessed At Rest Pain Present Pain Present Denied Pain M4 OT- IP ADL's Start: 12/14/17 16:24 Freq: Status: Active Protocol: Document 12/15/17 12:09 [facility] (Rec: 12/15/17 12:22 [facility] [id number]) OT ADL-Dressing General Eval Upper Body Dressing Ability Standby Assistance Lower Body Dressing Ability Moderate Assistance Areas Needing Assistance Underpants/Brief Pants/Shorts Shoes Comments OT Dressing Comments Pt not having the patience to use pilot safety inspector to assist for dressing needs. Therefore sister assist to place clothing items over her feet. Emphasized the importance of hip precautions of not bending more than 90 degrees and best to use pilot safety inspector if help with dressing. OT ADL-Toileting General Evaluation Toileting Ability Contact Guard Assistance Devices Toileting Assistive Devices Commode Comments OT Toileting Comments CGA for balance while pt doing pericare needs, again recommended to stand for hygiene as less likely to break hip precautions. OT ADL-Bathing Bathing Type Bathing Type Shower General Evaluation Bathing Ability Minimal Assistance Areas Needing Assistance Retrieving/Setting Up Items Devices Bathing Equipment Shower Chair with Arms Grab Bars Comments OT Bathing Comments Heavy use of grab bars for balance while standing to shower. Pt insisting on standing the whole time, still recommend shower chair for safety. Pt's sister able to to stand by for pt's balance while standing for showering needs. M5 OT- IP IADL's Start: 12/14/17 16:24 Freq: Status: Active Protocol: Document 12/14/17 16:25 [facility] (Rec: 12/14/17 16:47 [facility] [id number]) OT-Instrumental Activities of Daily Living Home Safety Awareness Awareness of Need for Assistance at Home Good Awareness Ability to Problem Solve Emergency Able to Problem Solve Situations Home Safety Comments Pt's sister to come and stay with her to assist. M6 OT- IP Functional Cognition Start: 12/14/17 16:24 Freq: Status: Active Protocol: Document 12/15/17 12:09 [facility] (Rec: 12/15/17 12:22 [facility] [id number]) Cognitive Factors Limiting Selfcare Function Cognitive Ability Level of Alertness Alert Patient Orientation Name Place Situation Attention Span Ability Capable of Focused Attention Capable of Sustained Attention Ability to Follow Commands Able to Follow Multi-Step Commands Memory Description Working Impaired Safety Awareness Decreased Ability to Apply Precautions Underestimates Need for Assistance Cognitive Comments Cognitive Assessment Comments Pt needs reminders to incorporate hip precautions for all needs. Sister states to have BSC next to bed or have pt ring a lopez for assist . Otherwise helpful to turn light on at night if having to use the bathroom. M7 OT- IP Mobility and Balance Start: 12/14/17 16:24 Freq: Status: Active Protocol: Document 12/15/17 12:09 [facility] (Rec: 12/15/17 12:22 [facility] [id number]) OT-Transfer Assessment Sit to and From Stand Sit to and from Stand Standby Assistance Contact Guard Assistance Transfers Transfer Ability Standby Assistance Contact Guard Assistance Technique Transfer Destination Chair Transfer Technique Stand Step Pivot Devices Transfer Assistive Devices Gait Belt Front Wheeled Walker OT- Balance Assessment Sitting Balance and Reactions Static Sitting Balance Ability Normal Dynamic Sitting Balance Ability Good Standing Balance and Reactions Static Standing Balance Ability Good Dynamic Standing Balance Ability Fair M8 OT- IP Objective Assessments Start: 12/14/17 16:24 Freq: Status: Active Protocol: Document 12/14/17 16:25 [facility] (Rec: 12/14/17 16:47 [facility] [id number]) OT Gross Range of Motion Upper Extremity Range of Motion Assessment Within Functional Limits OT Strength Upper Extremity Strength Assessment Within Functional Limits Comments Strength Comments BUE 4+/5 OT-Muscle Tone Assessment Muscle Tone WNL Yes M9 OT- IP Assessment and Plan Start: 12/14/17 16:24 Freq: Status: Active Protocol: Document 12/15/17 12:09 [facility] (Rec: 12/15/17 12:22 [facility] [id number]) OT Summary Assessment and Plan Goals Days to Meet Goals 1 Frequency of Treatment Frequency Of Treatment Once a Day Treatment Plan Other Treatment Recommendations and Next Pt being discharged today, pt' Treatment Focus s sister and friend stating good understanding to assist pt for all OT needs. Discharge Recommendations OT Discharge Recommendations Home with Assistance Home Equipment Needs shower chair, BSC, rails for steps
--- NOTE | 2017-12-15 13:40 | PC.NURSE ---
Patient ready for discharge to home with friend and sister. Reports having follow up appointment scheduled. Coversite dressing to left hip CDI upon discharge. Lovenox teaching completed this morning and patient able to administer to herself per teach back and demonstration, prescription given to patient. Patient states understanding of instructions and home care handouts and has no further questions or concerns at this time.
== END 2017-12-15 13:43 | disposition home health service (06) | DRG 470 ==
PROVIDERS: Admitting Provider Orthopaedic Surgery; Visit Provider Orthopaedic Surgery
PROC: 0SRB0JZ Replacement of Left Hip Joint with Synthetic Substitute, Open Approach (ICD-10-PCS; CPT 27130; principal; 2017-12-13 11:45)
DX: M16.12 Unilateral primary osteoarthritis, left hip (principal); I10 Essential (primary) hypertension; F41.9 Anxiety disorder, unspecified; E03.9 Hypothyroidism, unspecified
CPT/HCPCS: 36415; 72170; 85014; 85018; 94760; 97110; 97116; 97161; 97165; 97530; 97535; C1776; J0690; J1100; J1650; J2250; J2405; J2704; J3010

== ENCOUNTER 2017-12-29 09:12 | Emergency (ER) | payer MEDICARE, OTHER, SELFPAY ==
[2017-12-13 14:56] VITALS: BMI 32.1
[2017-12-29] VITALS (11 sets, daily range): BP systolic 123–149; BP diastolic 79–95; PULSE 98–114; RESP 16–22; TEMP 36.8; O2SAT 92–100
--- NOTE | 2017-12-29 09:14 | ED_ITS ---
HPI - Syncope General Chief Complaint: Syncope Stated Complaint: SOB-Syncope Time Seen by Provider: 12/29/17 09:13 Source: patient Mode of arrival: ambulatory Limitations: no limitations History of Present Illness HPI narrative: Patient is a otherwise healthy 72-year-old female here for evaluation of shortness of breath and syncopal episode this morning. Patient states she is 10 days status post a left total hip arthroplasty. She states that this morning she woke up went into the restroom in urinated. She then stood up been looked into the mere and started to not feel very well. She went over and sat on the bed and then had to lay back. She states that she did lose consciousness. Did not hit her head. No seizure-like activity. No loss of bowel or bladder. Return to normal almost immediately after regaining consciousness. Since then she has had shortness of breath and a vague chest discomfort. No lower extremity swelling. No fevers. Related Data Home Medications Medication Instructions Recorded Confirmed alprazolam [Xanax] 0.25 mg PO DAILY PRN 12/10/17 12/29/17 fluticasone [Flonase Allergy 1 spray INTRANASAL BEDTIME 12/10/17 12/29/17 Relief] levothyroxine 75 mcg PO DAILY 12/10/17 12/29/17 nebivolol [Bystolic] 5 mg PO DAILY 12/10/17 12/29/17 aspirin 81 mg PO BID 12/29/17 12/29/17 hydroxyzine pamoate 25 mg PO QID PRN 12/29/17 12/29/17 olmesartan 20 mg PO DAILY 12/29/17 12/29/17 oxycodone 5 mg PO Q4-6H PRN 12/29/17 12/29/17 oxycodone-acetaminophen 1 - 2 tab PO Q4-6H PRN 12/29/17 12/29/17 Previous Rx's Medication Instructions Recorded acetaminophen 650 mg PO DAILY PRN #60 tab 12/14/17 Allergies Allergy/AdvReac Type Severity Reaction Status Date / Time Penicillins Allergy Mild Rash Verified 12/29/17 11:22 Sulfa (Sulfonamide Allergy Mild Rash Verified 12/29/17 11:22 Antibiotics) etodolac Allergy Blister Verified 12/29/17 11:22 hydroxyzine Allergy Verified 12/29/17 11:22 iodine Allergy Verified 12/29/17 12:08 NSAIDS (Non-Steroidal AdvReac Mild Tachycardia Verified 12/29/17 11:22 Anti-Inflamma Review of Systems Constitutional Denies fever(s) and Denies headache(s) ENT Ears, Nose, Mouth, and Throat: Denies vertigo, Denies dizziness and Denies headache(s) Cardiovascular Reports chest pain, Reports syncope, Denies irregular heart rhythm, Denies claudication, Denies leg edema, Denies palpitations and Reports dyspnea Respiratory Denies chest congestion, Denies cough, Reports dyspnea and Denies wheezing Gastrointestinal Gastrointestinal: Denies abdominal pain, Denies change in bowel habits, Denies nausea and Denies vomiting Musculoskeletal Denies myalgias, Denies arthralgias, Denies numbness and Denies tingling Integumentary/Breasts Denies lesions and Denies rash Neurologic Denies confusion, Denies vertigo, Denies dizziness, Reports syncope, Denies headache(s), Denies numbness, Denies seizure-like activity, Denies sensory deficit, Denies tingling and Denies paresthesias Psychiatric Reports anxiety and Denies confusion Endocrine Denies palpitations Hematologic/Lymphatic Denies easy bleeding and Denies easy bruising Allergic/Immunologic Denies wheezing [facility] Medical History Anxiety (Acute) Depression (emotion) (Acute) HTN (hypertension) (Acute) Hearing loss (Acute) Hx of tooth extraction (Acute) Hypothyroid (Acute) Irritable bowel syndrome (IBS) (Acute) Seasonal allergies (Acute) Surgical History Hx of hand surgery (Acute) Status post cataract extraction of both eyes with insertion of intraocular lens (Acute) Status post complete hysterectomy (Acute) Status post surgery of both feet (Acute) Exam Initial Vital Signs Initial Vital Signs: Vital Signs Temperature 98.3 F 12/29/17 09:23 Pulse Rate 112 H 12/29/17 09:23 Respiratory Rate 20 12/29/17 09:23 Blood Pressure 133/91 H 12/29/17 09:23 Pulse Oximetry 100 12/29/17 09:23 Const General: cooperative, comfortable, well developed, well groomed and No in distress Orientation: alert, awake and oriented x3 HENMT Head: normal to inspection and normocephalic Chest Chest: normal inspection of the chest Resp Effort & Inspection: no audible wheezes, not labored, no respiratory distress, no retractions and tachypneic Auscultation: clear to auscultation bilaterally Cardio Rate: tachycardic Rhythm: regular rhythm Heart Sounds: no murmurs Pulses: radial pulses present GI Inspection: non-distended Palpation: soft, No firm and No tender Skin Lesions: no lesions Rashes: no rashes Neuro General: alert, awake and oriented x3 Cognition: normal cognition Speech: speech normal Extrem General: normal to inspection, capillary refill normal and No edema Psych Appearance: grossly normal and well kempt Course Orders Ordered: ED Orders 12/29/17 09:20 EKG-12 Lead Stat 12/29/17 09:30 B Type Natriuretic Peptide Stat Thyroid Stimulating Hormone Stat Troponin I Stat 12/29/17 09:31 Complete Blood Count AUTO DIFF Stat Comprehensive Metabolic Panel Stat Lipase Stat Partial Thromboplastin Time Stat Prothrombin Time INR Stat 12/29/17 10:10 CT angio chest PE protocol Stat Heparin Sodium/Dextrose (Heparin Drip) 25,000 unit in 500 mls @ 22.861 mls/hr IV CONT MILLA; Protocol Last Admin: 12/29/17 11:34 Dose: 12 units/kg/hr, 22.861 mls/hr Discontinued Medications Heparin Sodium (Porcine) (Heparin) 5,700 unit 60 unit/kg (5700 unit) IV NOW ONE Stop: 12/29/17 11:13 Last Admin: 12/29/17 11:34 Dose: 5,700 unit Sodium Chloride (Normal Saline 0.9%) 1,000 mls @ 1,000 mls/hr IV BOLUS ONE Stop: 12/29/17 10:13 Last Admin: 12/29/17 09:35 Dose: 1,000 mls/hr Lorazepam (Ativan) 0.5 mg PO NOW ONE Stop: 12/29/17 12:03 Vital Signs - 8 hr 12/29/17 09:23 12/29/17 09:30 12/29/17 10:00 Temperature 98.3 F Pulse Rate 112 H 106 H 107 H Respiratory Rate 20 16 16 Blood Pressure 133/91 H Blood Pressure [Right Arm] 123/80 131/86 Pulse Oximetry 100 96 98 12/29/17 10:30 12/29/17 11:00 12/29/17 11:10 Temperature 98.3 F Pulse Rate 98 H 103 H 107 H Respiratory Rate 17 17 16 Blood Pressure 133/91 H Blood Pressure [Right Arm] 132/88 135/79 Pulse Oximetry 96 96 98 12/29/17 11:30 Temperature Pulse Rate 107 H Respiratory Rate 19 Blood Pressure Blood Pressure [Right Arm] 139/84 Pulse Oximetry 98 MDM - Syncope Medical Records Attestation: I reviewed the patient's medical records. Lab Data Attestation: I reviewed the patient's lab results. Result diagrams: 12/29/17 09:31 12/29/17 09:31 Lab Results 12/29/17 12/29/17 12/29/17 Range/Units 09:30 09:30 09:31 WBC 11.3 H (4.5-11.0) X10^3/uL RBC 3.88 L (4.0-5.2) X10^6/uL Hgb 12.2 (12.0-16.0) g/dL Hct 36.3 (36-46) % MCV 93.5 (80-100) fL MCH 31.3 (26-34) PG MCHC 33.5 (30-36) % RDW 14.1 (11.6-14.8) % Plt Count 398 (150-400) X10^3/uL Neut % (Auto) 77.2 H (50-75) % Lymph % (Auto) 15.0 L (25-40) % Hudspeth % (Auto) 5.0 (3-14) % Eos % (Auto) 2.1 (2-4) % Baso % (Auto) 0.7 (0-2) % Neut # (Auto) 8700 H (2213-1857) /uL PT (10.1-12.7) SECONDS INR (0.9-1.3) APTT (26.4-36.2) SECONDS Sodium (137-145) mmol/L Potassium (3.4-5.1) mmol/L Chloride (98-107) mmol/L Carbon Dioxide (22-32) mmol/L BUN (7-17) mg/dL Creatinine (0.52-1.04) mg/dL Estimated GFR (>60) mL/min BUN/Creatinine Ratio (6-22) Glucose (80-110) mg/dL Calcium (8.4-10.2) mg/dL Total Bilirubin (0.2-1.3) mg/dL AST (14-36) IU/L ALT (9-52) IU/L Alkaline Phosphatase (38-126) U/L Troponin I 0.043 H (0.01-0.034) ng/mL B-Natriuretic Peptide 388.0 H (<100) Total Protein (6.3-8.2) g/dL Albumin (3.5-5.0) g/dL Globulin (1.7-4.1) g/dL Albumin/Globulin Ratio (1.0-2.8) Lipase (23-300) U/L 12/29/17 12/29/17 Range/Units 09:31 09:31 WBC (4.5-11.0) X10^3/uL RBC (4.0-5.2) X10^6/uL Hgb (12.0-16.0) g/dL Hct (36-46) % MCV (80-100) fL MCH (26-34) PG MCHC (30-36) % RDW (11.6-14.8) % Plt Count (150-400) X10^3/uL Neut % (Auto) (50-75) % Lymph % (Auto) (25-40) % Hudspeth % (Auto) (3-14) % Eos % (Auto) (2-4) % Baso % (Auto) (0-2) % Neut # (Auto) (8283-1047) /uL PT 13.6 H (10.1-12.7) SECONDS INR 1.2 (0.9-1.3) APTT 28 (26.4-36.2) SECONDS Sodium 146 H (137-145) mmol/L Potassium 3.7 (3.4-5.1) mmol/L Chloride 109 H (98-107) mmol/L Carbon Dioxide 22 (22-32) mmol/L BUN 15 (7-17) mg/dL Creatinine 0.90 (0.52-1.04) mg/dL Estimated GFR > 60.0 (>60) mL/min BUN/Creatinine Ratio 16.7 (6-22) Glucose 141 H (80-110) mg/dL Calcium 9.0 (8.4-10.2) mg/dL Total Bilirubin 0.6 (0.2-1.3) mg/dL AST 27 (14-36) IU/L ALT 29 (9-52) IU/L Alkaline Phosphatase 98 (38-126) U/L Troponin I (0.01-0.034) ng/mL B-Natriuretic Peptide (<100) Total Protein 6.9 (6.3-8.2) g/dL Albumin 4.0 (3.5-5.0) g/dL Globulin 2.9 (1.7-4.1) g/dL Albumin/Globulin Ratio 1.4 (1.0-2.8) Lipase 39 (23-300) U/L Imaging Data CT scan - chest: Radiologist's impression: PROCEDURE: CT ANGIO CHEST PE PROTOCOL INDICATIONS: Chest pain, shortness of breath, tachycardia TECHNIQUE: After the administration of intravenous contrast, 2 mm thick sections acquired from the pulmonary apices to the posterior costophrenic angles. 3-dimensional maximum intensity projection (MIP) coronal and sagittal reformats were then acquired through the thorax. For radiation dose reduction, the following was used: automated exposure control, adjustment of mA and/or kV according to patient size. COMPARISON: None. FINDINGS: Image quality: Diagnostic. Pulmonary arteries: Numerous intraluminal filling defects are identified within the bilateral pulmonary arteries, more prominent involving the right lower lobe pulmonary arteries. No saddle embolism is evident. Mild enlargement of the main pulmonary arterial trunk is identified, measuring up to approximately 3.7 cm in diameter. No definite thrombus is seen within the right ventricle. No definite bowing of the intra-atrial septum it is evident that the heart. Mild prominence of the right atrium is noted. Lungs and pleura: Scattered areas of groundglass attenuation are evident throughout the lungs, predominantly seen within the perihilar regions. No lobar consolidation , effusion, or pneumothorax is evident. No lung masses identified. No definitive pulmonary nodules are appreciated. Mediastinum: Heart size is normal, without pericardial effusion. No mediastinal or hilar adenopathy. Thoracic aorta is normal in caliber and enhancement. Mild aortic atherosclerosis is present. A Esophagus is normal in caliber, without hiatal hernia. Bones and chest wall: No suspicious bony lesions. Ribs and thoracic spine appear intact throughout. Moderate multilevel degenerative changes of the mid spine are more prominent involving the lower thoracic levels. Thyroid gland is not enlarged or adequately evaluated. No axillary or supraclavicular adenopathy. Abdomen: Visualized upper abdominal solid organs appear normal in the early arterial phase of enhancement. IMPRESSION: 1. Numerous bilateral pulmonary emboli with moderate embolic load. Mild enlargement of the right atrium and main pulmonary arterial trunk may be related to pulmonary hypertension from these emboli. 2. Mammogram glass attenuation within the perihilar regions is felt to be related to pulmonary emboli. No definite pneumonia. Note: Findings were discussed with Dr. Mendez at 1030 hours (PST) on 12/29/17. Dictated by: Zaki Sauer M.D. on 12/29/2017 at 9:27 Approved by: Zaki Sauer M.D. on 12/29/2017 at 9:33 ECG Data Attestation: I personally reviewed and interpreted this ECG as follows: Prior ECG tracings: not available for review Interpretation: Sinus tachycardia Ventricular rate of 109 Normal axis Normal QRS Normal QTC Nonspecific ST T wave changes MDM Narrative Medical decision making narrative: Patient with CT scan showing bilateral pulmonary embolus with a slightly elevated troponin and also BNP. Concern for right heart strain. Patient feels much better when she is on 2 L of oxygen by nasal cannula. Patient was started on heparin. Discussed the case with Dr. Puri with Internal Medicine at [facility] who accepts the patient in transfer after she discussed the case with the ICU provider and also pulmonology. I discussed the transfer with the patient who expressed understanding and agreement. Discharge Plan Departure Patient Disposition: [facility] Clinical Impression: Bilateral pulmonary embolism, Syncope, Chest pain Prescriptions: No Action alprazolam [Xanax] 0.25 mg Tablet 0.25 mg PO DAILY PRN (Reason: Anxiety) RF: 0 fluticasone [Flonase Allergy Relief] 50 mcg/actuation [place],Suspension 1 spray INTRANASAL BEDTIME RF: 0 nebivolol [Bystolic] 10 mg Tablet 5 mg PO DAILY RF: 0 levothyroxine 75 mcg Capsule 75 mcg PO DAILY RF: 0 acetaminophen 325 mg Tablet 650 mg PO DAILY PRN (Reason: Pain (Scale Score 4-6)) Qty: 60 RF: 0 aspirin 81 mg Tablet,Delayed Release (Dr/Ec) 81 mg PO BID RF: 0 oxycodone-acetaminophen 5-325 mg Tablet 1 - 2 tab PO Q4-6H PRN (Reason: pain) RF: 0 oxycodone 5 mg Tablet 5 mg PO Q4-6H PRN (Reason: pain) RF: 0 hydroxyzine pamoate 25 mg Capsule 25 mg PO QID PRN (Reason: nausea/muscle spasm) RF: 0 olmesartan 20 mg Tablet 20 mg PO DAILY RF: 0
[2017-12-29] MEDS: SODIUM CHLORIDE 0.9% 1,000 ML 1000 ML IV (09:35)
[2017-12-29 09:42] LABS: Add Manual Diff / Slide Review NO; Basophils Percent Auto 0.7 % (0-2); Eosinophils Percent Auto 2.1 % (2-4); Hematocrit 36.3 % (36-46); Hemoglobin 12.2 g/dL (12.0-16.0); Mean Corpuscular HGB Conc 33.5 % (30-36); Mean Corpuscular Hemoglobin 31.3 PG (26-34); Mean Corpuscular Volume 93.5 fL (80-100); Neutrophils Absolute Auto 8700 /uL (3000-5900); Neutrophils Percent Auto 77.2 % (50-75); Platelet Count 398 X10^3/uL (150-400); Red Blood Cell Count 3.88 X10^6/uL (4.0-5.2); Red Cell Distribution Width 14.1 % (11.6-14.8); White Blood Cell Count 11.3 X10^3/uL (4.5-11.0)
[2017-12-29 09:49] LABS: INR 1.2 (0.9-1.3); Prothrombin Time 13.6 SECONDS (10.1-12.7)
[2017-12-29 09:52] LABS: PTT Partial Thromboplastin Tim 28 SECONDS (26.4-36.2)
[2017-12-29 09:54] LABS: Alanine Aminotransferase 29 IU/L (9-52); Albumin Globulin Ratio 1.4 (1.0-2.8); Alkaline Phosphatase 98 U/L (38-126); Aspartate Aminotransferase 27 IU/L (14-36); BUN Creatinine Ratio 16.7 (6-22); Bilirubin Total 0.6 mg/dL (0.2-1.3); Blood Urea Nitrogen 15 mg/dL (7-17); Carbon Dioxide 22 mmol/L (22-32); Chloride 109 mmol/L (98-107); Estimated Glomerular Filt Rate > 60.0 mL/min (>60); Globulin 2.9 g/dL (1.7-4.1); Glucose 141 mg/dL (80-110); HEMOLYSIS < 15 (0-50); Lipase 39 U/L (23-300); Potassium 3.7 mmol/L (3.4-5.1); Sodium 146 mmol/L (137-145); Total Protein 6.9 g/dL (6.3-8.2)
--- NOTE | 2017-12-29 10:10 | DI.CT.S_ITS ---
PROCEDURE: CT ANGIO CHEST PE PROTOCOL INDICATIONS: Chest pain, shortness of breath, tachycardia TECHNIQUE: After the administration of intravenous contrast, 2 mm thick sections acquired from the pulmonary apices to the posterior costophrenic angles. 3-dimensional maximum intensity projection (MIP) coronal and sagittal reformats were then acquired through the thorax. For radiation dose reduction, the following was used: automated exposure control, adjustment of mA and/or kV according to patient size. COMPARISON: None. FINDINGS: Image quality: Diagnostic. Pulmonary arteries: Numerous intraluminal filling defects are identified within the bilateral pulmonary arteries, more prominent involving the right lower lobe pulmonary arteries. No saddle embolism is evident. Mild enlargement of the main pulmonary arterial trunk is identified, measuring up to approximately 3.7 cm in diameter. No definite thrombus is seen within the right ventricle. No definite bowing of the intra-atrial septum it is evident that the heart. Mild prominence of the right atrium is noted. Lungs and pleura: Scattered areas of groundglass attenuation are evident throughout the lungs, predominantly seen within the perihilar regions. No lobar consolidation, effusion, or pneumothorax is evident. No lung masses identified. No definitive pulmonary nodules are appreciated. Mediastinum: Heart size is normal, without pericardial effusion. No mediastinal or hilar adenopathy. Thoracic aorta is normal in caliber and enhancement. Mild aortic atherosclerosis is present. A Esophagus is normal in caliber, without hiatal hernia. Bones and chest wall: No suspicious bony lesions. Ribs and thoracic spine appear intact throughout. Moderate multilevel degenerative changes of the mid spine are more prominent involving the lower thoracic levels. Thyroid gland is not enlarged or adequately evaluated. No axillary or supraclavicular adenopathy. Abdomen: Visualized upper abdominal solid organs appear normal in the early arterial phase of enhancement. IMPRESSION: 1. Numerous bilateral pulmonary emboli with moderate embolic load. Mild enlargement of the right atrium and main pulmonary arterial trunk may be related to pulmonary hypertension from these emboli. 2. Mammogram glass attenuation within the perihilar regions is felt to be related to pulmonary emboli. No definite pneumonia. Note: Findings were discussed with Dr. Mendez at 1030 hours (PST) on 12/29/17. Dictated by: Zaki Sauer M.D. on 12/29/2017 at 9:27 Approved by: Zaki Sauer M.D. on 12/29/2017 at 9:33
[2017-12-29 10:59] LABS: Troponin I 0.043 ng/mL (0.01-0.034)
[2017-12-29] MEDS: HEPARIN 5,000 UNIT/ML VIAL 5700 UNIT IV (11:34)
[2017-12-29] MEDS: HEPARIN DRIP 25,000 UNIT/500 ML IV.SOLN 22.861 UNIT IV (11:34)
[2017-12-29 12:14] LABS: Thyroid Stimulating Hormone 3.96 uIU/mL (0.47-4.68)
[2017-12-29] MEDS: LORazepam 0.5 MG TABLET PO (12:33)
--- NOTE | 2018-01-02 08:27 | PC.NURSE ---
Heparin and normal saline DC'd at 1310
== END 2017-12-29 13:55 | disposition short-term general hospital (02) ==
PROVIDERS: Emergency Provider Emergency Medicine
DX: I26.99 Other pulmonary embolism without acute cor pulmonale (principal); R55 Syncope and collapse; R07.89 Other chest pain
CPT/HCPCS: 71275; 80053; 83690; 83880; 84443; 84484; 85025; 85610; 85730; 93005; 96361; 96365; 96366; 99284; 99285; J1644; Q9967

== ENCOUNTER → 2019-04-21 10:55 | Outpatient (CLI) | payer MEDICARE, BC, SELFPAY ==
[2017-12-13 14:56] VITALS: BMI 32.1
--- NOTE | 2019-04-21 11:49 | PM.TREADMILL ---
Cardiac Stress Test Report Referral & Results Date Patient Seen: 04/21/19 Time Patient Seen: 11:50 Requesting provider: Yen Asencio Indication: Dyspnea Rest ECG: Normal sinus rhythm Procedure Note: Patient exercised for 2:25 achieving 100% of target heart rate. Max heart rate at peak exercise was 136 bpm. Patient reported dyspnea and fatigue at peak exercise. No chest pain or anginal symptoms. No significant ECG changes at peak exercise. Impression: Normal non-nuclear exercise stress test. Physican to review. Please note: Actual ECG tracings can be found in the PACS system.
== END ==
PROVIDERS: Visit Provider Internal Medicine Cardiovascular Disease
DX: R06.00 Dyspnea, unspecified (principal); R00.0 Tachycardia, unspecified
CPT/HCPCS: 93016; 93017; 93018

== ENCOUNTER 2019-12-18 11:21 | Emergency (ER) | payer MEDICARE, BC, SELFPAY ==
[2017-12-13 14:56] VITALS: BMI 32.1
[2019-12-18 11:38] VITALS: BP 132/73; PULSE 90; RESP 19; TEMP 36.4; O2SAT 97
--- NOTE | 2019-12-18 11:41 | DI.RAD.S_ITS ---
PROCEDURE: XR KNEE RT 3V INDICATIONS: atraumatic pain. TECHNIQUE: 3 views of the knee were acquired. COMPARISON: None. FINDINGS: Bones: No fractures or dislocations. No suspicious bony lesions. There is moderate medial femorotibial joint space narrowing seen, with associated remodeling changes including subchondral sclerosis and osteophyte formation along the jointline. On the sunrise view, there is mild to moderate lateral patellofemoral joint space narrowing seen. Osteophyte formation can be seen along the margins of the patella. Soft tissues: There is a moderate joint effusion. No suspicious soft tissue calcifications. 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 There is a moderate joint effusion. Dictated by: Andrew Meek M.D. on 12/18/2019 at 11:21 Approved by: Andrew Meek M.D. on 12/18/2019 at 11:22
[2019-12-18 14:30] VITALS: BP 129/85; PULSE 101; O2SAT 97
--- NOTE | 2019-12-18 23:53 | ED.LOWEXIN ---
HPI - Extremity Injury (Lower) <Nicolas HollisOUSMANE Maria - Last Filed: 12/19/19 00:12> General Chief Complaint: Extremity Injury, Lower Stated Complaint: Right knee cannot bare weight Time Seen by Provider: 12/18/19 14:01 Source: patient Mode of arrival: Ambulatory Limitations: no limitations History of Present Illness HPI Narrative: This is a 74-year-old female, nonsmoker, who presents to ED with friend with chief complain of right knee discomfort which has been progressively worst that started 2 weeks ago and swelling. Patient denies known trauma or injury to affected leg. Patient reports increasing pain with weight-bearing, ambulation and changing in position from resting to full weightbear on affected leg. Patient used to walk daily until last 2 weeks. Patient denies fever, chills, nausea or vomiting, redness, warmth to affected leg. Patient has history of arthritis in joints. She has been taking Tylenol 2 tabs about twice a day and using Voltaren gel a few times a day. Also had used ice and CBD oil on affected side with some relief. Patient was trying to be seen by Dr. Moya at [facility] but unsuccessful. Patient had left hip surgery from arthritis by Dr. Moya several years ago. Patient is currently taking is rale to with history of pulmonary embolism. Related Data Home Medications Medication Instructions Recorded Confirmed alprazolam [Xanax] 0.25 mg PO DAILY PRN 12/10/17 12/29/17 fluticasone propionate [Flonase 1 spray INTRANASAL BEDTIME 12/10/17 12/29/17 Allergy Relief] levothyroxine 12/19/19 rivaroxaban [Xarelto] mg 12/19/19 Previous Rx's Medication Instructions Recorded acetaminophen 650 mg PO DAILY PRN #60 tab 12/14/17 Allergies Allergy/AdvReac Type Severity Reaction Status Date / Time Penicillins Allergy Mild Rash Verified 12/18/19 11:41 Sulfa (Sulfonamide Allergy Mild Rash Verified 12/18/19 11:41 Antibiotics) etodolac Allergy Blister Verified 12/18/19 11:41 hydroxyzine Allergy Verified 12/18/19 11:41 iodine Allergy Verified 12/29/17 12:08 NSAIDS (Non-Steroidal AdvReac Mild Tachycardia Verified 12/18/19 11:41 Anti-Inflamma Review of Systems <OUSMANE Earl - Last Filed: 12/19/19 00:12> Review of Systems Narrative: General: Denies fever, chills, fatigue, malaise, sweats. HEENT: Denies sinus pain, ear pain, sore throat, difficulty swallowing, dizziness. Respiratory: Denies dyspnea, cough, wheezing, hemoptysis, sputum. Cardiovascular: Denies chest pain, palpitations, orthopnea, edema. Gastrointestinal: Denies nausea, vomiting, abdominal pain, diarrhea, constipation, melena. : Denies dysuria, frequency, incontinence, hematuria, urinary retention. Musculoskeletal: See HPI Skin: Denies rash, skin lesions, or other. Neurologic: Denies weakness, headache, numbness, change in speech, confusion, seizures, incoordination. Psychiatric: No concerning psychosocial issues. 12-point review of systems is negative except for those stated above. Patient History <OUSMANE Earl - Last Filed: 12/19/19 00:12> Medical History Anxiety (Acute) Arthritis (Acute) Depression (emotion) (Acute) Hearing loss (Acute) HTN (hypertension) (Acute) Hypothyroid (Acute) Irritable bowel syndrome (IBS) (Acute) Pulmonary embolism (Acute) Seasonal allergies (Acute) Surgical History History of hip surgery (Acute) Hx of hand surgery (Acute) Hx of tooth extraction (Acute) Status post cataract extraction of both eyes with insertion of intraocular lens (Acute) Status post complete hysterectomy (Acute) Status post surgery of both feet (Acute) Social History household members: none Smoking Status: Never smoker alcohol intake: current Smoking Status: Never smoker alcohol intake frequency: 0-2 drinks per day Substance Use Type: does not use Exam <OUSMANE Earl - Last Filed: 12/19/19 00:12> Narrative Exam Narrative: General appearance: well developed, well nourished, in no acute distress. Head: normocephalic, atraumatic, no scalp lesions, non-tender. ENT: Hearing grossly intact. Nose without bleeding, purulent discharge. Airway patent. Neck/Thyroid: neck supple, full range of motion, no visible masses or meningeal signs. No JVD, non-tender without lymphadenopathy. Skin: no suspicious rashes, lesions over visible areas. Warm and dry and appropriate color for ethnicity. Heart: no clubbing, no cyanosis, no edema. S1 and S2 normal. RRR w/o murmurs, clicks, or bruits. Lungs: Breathing even and unlabored. No stridor. No accessory muscles used. Able to speak in full sentences. Chest: normal shape and expansion. Abdomen: non-obese, non-distended. Neurologic: alert and oriented. Cognitive exam, [employer] and PNS grossly intact on informal exam. Psych: good eye contact, normal affect. Initial Vital Signs Initial Vital Signs: Vital Signs Temperature 97.6 F 12/18/19 11:38 Pulse Rate 90 12/18/19 11:38 Respiratory Rate 19 12/18/19 11:38 Blood Pressure 132/73 12/18/19 11:38 Pulse Oximetry 97 12/18/19 11:38 Extrem Right lower extremity: knee Details: normal to inspection, tenderness Location: of the pre-patellar area and of the infrapatellar area, swelling Location: of the pre-patellar area, normal ROM, knee ligament exam normal and other (No erythema); no deformity and no unusual warmth, lower leg Details: normal to inspection; no tenderness and no localized swelling and foot Details: normal capillary refill, normal to inspection, toes with normal ROM, vascular exam Details: dorsalis pedis pulse present and motor-sensory exam Details: light-touch normal; no tenderness <Ravi Lovett MD - Last Filed: 01/02/20 09:07> Initial Vital Signs Initial Vital Signs: Vital Signs Temperature 97.6 F 12/18/19 11:38 Pulse Rate 90 12/18/19 11:38 Respiratory Rate 12/18/19 11:38 Blood Pressure 132/73 12/18/19 11:38 Pulse Oximetry 97 12/18/19 11:38 Scores <OUSMANE Earl - Last Filed: 12/19/19 00:12> GCS Jeff coma scale eye opening: Spontaneous Jeff coma scale verbal response: Orientated [place] coma scale motor response: Obey commands [place] coma scale total score: 15 MDM - Extremity Injury (Lower) <OUSMANE Earl - Last Filed: 12/19/19 00:12> Differential Diagnosis Differential diagnosis: Likely acute internal derangement of knee and other (Knee strain, knee fracture, knee effusion, ) Medical Records Attestation: I reviewed the patient's medical records. Imaging Data XR-Knee RT: Radiologist's Impression: [address] [address] XRay Report Signed Patient: Rosario Bundy DMR#: [id number] : 7Acct:[id number] Age/Sex: 74 / FDate of Service: 12/18/19 Loc: ED Accession Number: [id number] Procedure: XR knee RT 3V Ordering Provider: Ravi Lovett MD PROCEDURE: XR KNEE RT 3V INDICATIONS: atraumatic pain. TECHNIQUE: 3 views of the knee were acquired. COMPARISON: None. FINDINGS: Bones: No fractures or dislocations. No suspicious bony lesions. There is moderate medial femorotibial joint space narrowing seen, with associated remodeling changes including subchondral sclerosis and osteophyte formation along the jointline. On the sunrise view, there is mild to moderate lateral patellofemoral joint space narrowing seen. Osteophyte formation can be seen along the margins of the patella. Soft tissues: There is a moderate joint effusion. No suspicious soft tissue calcifications. 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 There is a moderate joint effusion. Dictated by: Andrew Meek M.D. on 12/18/2019 at 11:21 Approved by: Andrew Meek M.D. on 12/18/2019 at 11:22 [facility] Narrative Medical decision making narrative: This is a 74 year female presents to ED with right knee nontraumatic pain for last 2 weeks which has been progressively worst with feeling of swelling internally. Patient is intact sensation, mobility, distal pulses. X-ray test shows osteoarthritis degenerative changes which are most prominent involving medial femoral tibial compartment with moderate joint effusion. Physical exam without warmth, redness, significant swelling to affected knee. Patient is currently using Tylenol twice a day with Voltaren gel. Offered knee brace or Prashant wrap but patient reports she has a couple of days at home. Advised to use this for support and discomfort. RICE therapy disccused with patient and to use Tylenol up to 3 to 4 times a day as needed for discomfort. Patient is using Voltaren gel and she is currently taking Xarelto for history of pulmonary embolism. Patient uses a cane for ambulation assistance. Return precautions were discussed with patient and advise follow with [facility] orthopedist and primary care physician for possible further imaging test, her to physical therapist as needed. Patient verbalized understanding and agreement with the treatment plan. Discharge Plan Departure Patient Disposition: Home Clinical Impression: Knee pain, Effusion of knee Discharge Date/Time: 12/18/19 14:32 Instructions: DI for Knee Effusion, DI for Knee Pain Activity Restrictions/Additional Instructions: You have been diagnosed with [right knee pain and effusion. X-ray test does not show fractures or dislocations but osteoarthritis degenerative changes with moderate joint effusion]. What to do: *Take your medications as directed. Please continue to use Tylenol 650-1000 mg up to 3 to 4 times a day as needed for pain. Use Voltaren gel on affected site for 3 to 4 times a day as needed for pain and inflammation. Use knee brace that you have at home and limit bearing weight on affected leg if there is pain. You can elevate affected leg and cool pack as needed during rest. *Follow up with your primary care provider/orthopedist in 2-3 days, call for an appointment. Let them know you were seen in the ED and that we asked you to be seen in follow up. *Return to ED if you have any new, worsening, or concerning symptoms, such as [worsening pain, numbness/tingling/weakness to affected leg, fever, increasing redness or warmth on affected knee, chest pain, breathing difficulty or any acute concerns]. Prescriptions: No Action Xarelto 20 mg tablet RF: 0 levothyroxine 75 mcg tablet RF: 0 alprazolam [Xanax] 0.25 mg Tablet 0.25 mg PO DAILY PRN (Reason: Anxiety) RF: 0 fluticasone propionate [Flonase Allergy Relief] 50 mcg/actuation [place],Suspension 1 spray INTRANASAL BEDTIME RF: 0 acetaminophen 325 mg Tablet 650 mg PO DAILY PRN (Reason: Pain (Scale Score 4-6)) Qty: 60 RF: 0 Referrals: Karoline Hill ARNP [Primary Care Provider] - Grupo oMya MD [Physician] -
== END 2019-12-18 14:32 | disposition home or self-care (01) ==
PROVIDERS: Emergency Provider Nurse Practitioner Family; PCP Nurse Practitioner
DX: M25.461 Effusion, right knee (principal); M25.561 Pain in right knee
CPT/HCPCS: 73562; 99283

== ENCOUNTER 2020-02-10 16:41 | Emergency (ER) | payer MEDICARE, BC, SELFPAY ==
[2017-12-13 14:56] VITALS: BMI 32.1
[2020-02-10] VITALS (11 sets, daily range): BP systolic 149–173; BP diastolic 88–114; PULSE 92–105; RESP 19–27; TEMP 36.6; O2SAT 94–97
--- NOTE | 2020-02-10 16:59 | DI.RAD.S_ITS ---
PROCEDURE: XR CHEST 1V INDICATIONS: SOB TECHNIQUE: One view of the chest was acquired. COMPARISON: [facility], CR, XR CHEST 1 VIEW, 01/02/2018, 10:10. FINDINGS: Surgical changes and devices: None. Lungs and pleura: Lungs are clear. No pleural effusions or pneumothorax. Mediastinum: Mediastinal contours appear normal. Heart size is enlarged. Bones and chest wall: No suspicious bony lesions. Overlying soft tissues appear unremarkable. IMPRESSION: Mild cardiomegaly. No acute cardiopulmonary abnormalities. Dictated by: Tommy Davila M.D. on 02/10/2020 at 16:56 Approved by: Tommy Davila M.D. on 02/10/2020 at 17:09
--- NOTE | 2020-02-10 17:05 | ED_ITS ---
HPI - SOB/Dyspnea <OUSMANE Chavez - Last Filed: 02/10/20 20:54> General Chief Complaint: Shortness of Breath/Dyspnea Stated Complaint: stopped a medication, having reactions Time Seen by Provider: 02/10/20 16:48 Source: patient Mode of arrival: Family Vehicle Limitations: no limitations History of Present Illness HPI Narrative: 74yo female presents to the emergency department for shortness of breath on exertion that started today. She states she has discontinued her Eliquis for the past 2.5 weeks as she is having her tooth pulled. She has a history of a PE. This morning she woke up and noticed shortness of breath that is worse when she ambulates. She is concerned about a PE. She denies taking any hormones, denies any long trips, denies any leg swelling. Patient denies a ny chest pain, dizziness, nausea, vomiting, diarrhea, or any other concerns. Related Data Home Medications Medication Instructions Recorded Confirmed alprazolam [Xanax] 0.25 mg PO DAILY PRN 12/10/17 12/29/17 fluticasone propionate [Flonase 1 spray INTRANASAL BEDTIME 12/10/17 12/29/17 Allergy Relief] levothyroxine 12/19/19 rivaroxaban [Xarelto] mg 12/19/19 Previous Rx's Medication Instructions Recorded acetaminophen 650 mg PO DAILY PRN #60 tab 12/14/17 Allergies Allergy/AdvReac Type Severity Reaction Status Date / Time Penicillins Allergy Mild Rash Verified 02/10/20 17:05 Sulfa (Sulfonamide Allergy Mild Rash Verified 02/10/20 17:05 Antibiotics) etodolac Allergy Blister Verified 02/10/20 17:05 hydroxyzine Allergy Verified 02/10/20 17:05 iodine Allergy Verified 02/10/20 17:05 NSAIDS (Non-Steroidal AdvReac Mild Tachycardia Verified 02/10/20 17:05 Anti-Inflamma Review of Systems <OUSMANE Chavez - Last Filed: 02/10/20 20:54> Review of Systems Narrative: REVIEW OF SYSTEMS: GENERAL: Denies fevers. HENT: No head trauma or hearing loss. EYES: No loss of vision, double vision, eye pain, irritation or discharge. CARDIOVASCULAR: No chest pain or syncope. RESPIRATORY: Reports shortness of breath, see HPI. GASTROINTESTINAL: No nausea, vomiting, diarrhea, or constipation. MUSCULOSKELETAL: No weakness or injury. INTEGUMENTARY: No rash, lesions, or pruritus. NEURO: No memory loss, or confusion. Patient History <OUSMANE Chavez - Last Filed: 02/10/20 20:54> Medical History Anxiety (Acute) Arthritis (Acute) Depression (emotion) (Acute) Hearing loss (Acute) HTN (hypertension) (Acute) Hypothyroid (Acute) Irritable bowel syndrome (IBS) (Acute) Pulmonary embolism (Acute) Seasonal allergies (Acute) Surgical History History of hip surgery (Acute) Hx of hand surgery (Acute) Hx of tooth extraction (Acute) Status post cataract extraction of both eyes with insertion of intraocular lens (Acute) Status post complete hysterectomy (Acute) Status post surgery of both feet (Acute) Social History household members: none Smoking Status: Former smoker alcohol intake: current Smoking Status: Former smoker alcohol intake frequency: 0-2 drinks per day Substance Use Type: does not use Exam <OUSMANE Chavez - Last Filed: 02/10/20 20:54> Initial Vital Signs Initial Vital Signs: Vital Signs Temperature 97.8 F 02/10/20 16:50 Pulse Rate 105 H 02/10/20 16:50 Respiratory Rate 20 02/10/20 16:50 Blood Pressure 173/107 H 02/10/20 16:50 Pulse Oximetry 95 02/10/20 16:50 PHYSICAL EXAMINATION: GENERAL: Well groomed, alert, and cooperative. Answers questions promptly and appropriately. Vital signs noted. HENT: Normocephalic, atraumatic. Ear canals patent. EYES: Conjunctiva pink, sclera white, no periorbital swelling. No discharge. CHEST: Normal to inspection and without deformities. CARDIOVASCULAR: S1 and S2 sounds normal. Regular rate and rhythm, no murmurs, clicks, or bruits. RESPIRATORY: Normal respiratory rate, trachea midline, airway patent. No stridor, nasal flaring or accessory muscle use. Able to speak in full sentences. Lungs are clear in all dunn without wheeze, rhonchi, or crackles. MUSCULOSKELETAL: Normal gait and coordination. Equal tone and mass bilaterally. EXTREMITIES: Moves all extremities. SKIN: Warm, dry, soft, appropriate color for ethnicity. No lesions, rashes, or wounds to visualized areas. NEURO: Alert and Oriented X 3. Good coordination. No ataxia or cognitive issues. PSYCH: Appropriate affect and mood. <Mj Pickering DO - Last Filed: 02/11/20 00:46> Initial Vital Signs Initial Vital Signs: Vital Signs Temperature 97.8 F 02/10/20 16:50 Pulse Rate 105 H 02/10/20 16:50 Respiratory Rate 20 02/10/20 16:50 Blood Pressure 173/107 H 02/10/20 16:50 Pulse Oximetry 95 02/10/20 16:50 Scores <OUSMANE Chavez - Last Filed: 02/10/20 20:54> PERC Score Age greater than or equal to 50 years: Yes Heart rate greater than or equal to 100 bpm: Yes Room Air O2 Sat less than 95%: No Unilateral leg swelling: No Recent trauma or surgery: No Hemoptysis: No Prior PE or DVT: Yes Hormone Use: No Total PERC Score: 3 Wells' Criteria for PE Clinical signs and symptoms of DVT: No PE is #1 Dx or equally likely: Yes Heart rate > 100: Yes Immobilization at least 3 days or surg in previous 4 weeks: No History of PE or DVT: Yes Hemoptysis: No Malignancy w/Treatment within 6 months or palliative: No Wells' PE Score total: 6.0 Course <OUSMANE Chavez - Last Filed: 02/10/20 20:54> Course Course Narrative: 1809: Patient updated on plan of care, discuss transfer, consented to [facility] transfer. Hospitalist called by Dr. Pickering, suggest transfer due to heart strain and lack of annual giving manager. Dr Pickering spoke with Dr. Vasquez from [facility], accepts patient. Heparin started per conversation, ALS transport called. Orders Ordered: ED Orders 02/10/20 16:59 XR chest 1V Stat EKG-12 Lead Stat 02/10/20 17:03 Complete Blood Count AUTO DIFF Stat Comprehensive Metabolic Panel Stat D Dimer Stat NT-proBNP (BNP-Adult 18+) Stat Partial Thromboplastin Time Stat Prothrombin Time INR Stat Troponin & CK Cardiac Panel Stat 02/10/20 17:11 COVID19 -ED/INPAT/OR/L&D Stat 02/10/20 18:01 CT angio chest PE protocol Stat Discontinued Medications Heparin Sodium (Porcine) (Heparin) 7,500 unit IV NOW ONE Stop: 02/10/20 19:32 Last Admin: 02/10/20 20:04 Dose: 7,500 unit Documented by: RMARTIN Sodium Chloride (Normal Saline 0.9%) 1,000 mls @ 500 mls/hr IV BOLUS ONE Stop: 02/10/20 20:00 Last Infusion: 02/10/20 20:32 Dose: 0 mls/hr Documented by: Admin: 02/10/20 18:07 Dose: 500 mls/hr Documented by: RMARTIN Heparin Sodium/Dextrose (Heparin Drip) 25,000 unit in 500 mls @ 35.748 mls/hr I V CONT MILLA; Protocol Last Titration: 02/10/20 21:22 Dose: 0 units/kg/hr, 0 mls/hr Documented by: Admin: 02/10/20 20:05 Dose: 18 units/kg/hr, 35.748 mls/hr Documented by: RMLEONARDA Paroxetine HCl (Paxil) 10 mg PO DAILY MILLA Paroxetine HCl (Paxil) 10 mg PO NOW ONE Stop: 02/10/20 20:48 Last Admin: 02/10/20 20:58 Dose: 10 mg Documented by: JOSE Consultations Consultation #1: Patient staffed with Dr. Pickering, discussed test, test results, plan of care. Vital Signs Vital signs: Vital Signs - 8 hr 02/10/20 16:50 02/10/20 17:41 02/10/20 18:00 Temperature 97.8 F Pulse Rate 105 H 97 H 96 H Respiratory Rate 20 24 20 Blood Pressure 173/107 H 151/88 H Pulse Oximetry 95 95 96 02/10/20 18:23 02/10/20 18:29 02/10/20 18:30 Temperature Pulse Rate 96 H 96 H 94 H Respiratory Rate 25 H 25 H 19 Blood Pressure 156/104 H 149/101 H 152/96 H Pulse Oximetry 97 94 95 02/10/20 19:00 02/10/20 19:30 02/10/20 19:32 Temperature Pulse Rate 93 H 92 H 96 H Respiratory Rate 24 25 H 27 H Blood Pressure 159/106 H 167/114 H 169/113 H Pulse Oximetry 96 95 96 02/10/20 20:00 02/10/20 20:30 Temperature Pulse Rate 94 H 95 H Respiratory Rate 20 23 Blood Pressure 165/104 H 155/103 H Pulse Oximetry 94 95 <Mj Pickering DO - Last Filed: 02/11/20 00:46> Orders Ordered: ED Orders 02/10/20 16:59 XR chest 1V Stat EKG-12 Lead Stat 02/10/20 17:03 Complete Blood Count AUTO DIFF Stat Comprehensive Metabolic Panel Stat D Dimer Stat NT-proBNP (BNP-Adult 18+) Stat Partial Thromboplastin Time Stat Prothrombin Time INR Stat Troponin & CK Cardiac Panel Stat 02/10/20 17:11 COVID19 -ED/INPAT/OR/L&D Stat 02/10/20 18:01 CT angio chest PE protocol Stat Discontinued Medications Heparin Sodium (Porcine) (Heparin) 7,500 unit IV NOW ONE Stop: 02/10/20 19:32 Last Admin: 02/10/20 20:04 Dose: 7,500 unit Documented by: TAIWOIN Sodium Chloride (Normal Saline 0.9%) 1,000 mls @ 500 mls/hr IV BOLUS ONE Stop: 02/10/20 20:00 Last Infusion: 02/10/20 20:32 Dose: 0 mls/hr Documented by: Admin: 02/10/20 18:07 Dose: 500 mls/hr Documented by: JOSE Heparin Sodium/Dextrose (Heparin Drip) 25,000 unit in 500 mls @ 35.748 mls/hr IV CONT MILLA; Protocol Last Titration: 02/10/20 21:22 Dose: 0 units/kg/hr, 0 mls/hr Documented by: Admin: 02/10/20 20:05 Dose: 18 units/kg/hr, 35.748 mls/hr Documented by: JOSE Paroxetine HCl (Paxil) 10 mg PO DAILY MILLA Paroxetine HCl (Paxil) 10 mg PO NOW ONE Stop: 02/10/20 20:48 Last Admin: 02/10/20 20:58 Dose: 10 mg Documented by: JOSE Vital Signs Vital signs: Vital Signs - 8 hr 02/10/20 16:50 02/10/20 17:41 02/10/20 18:00 Temperature 97.8 F Pulse Rate 105 H 97 H 96 H Respiratory Rate 20 24 20 Blood Pressure 173/107 H 151/88 H Pulse Oximetry 95 95 96 02/10/20 18:23 02/10/20 18:29 02/10/20 18:30 Temperature Pulse Rate 96 H 96 H 94 H Respiratory Rate 25 H 25 H 19 Blood Pressure 156/104 H 149/101 H 152/96 H Pulse Oximetry 97 94 95 02/10/20 19:00 02/10/20 19:30 02/10/20 19:32 Temperature Pulse Rate 93 H 92 H 96 H Respiratory Rate 24 25 H 27 H Blood Pressure 159/106 H 167/114 H 169/113 H Pulse Oximetry 96 95 96 02/10/20 20:00 02/10/20 20:30 Temperature Pulse Rate 94 H 95 H Respiratory Rate 20 23 Blood Pressure 165/104 H 155/103 H Pulse Oximetry 94 95 MDM - SOB/Dyspnea <OUSMANE Chavez - Last Filed: 02/10/20 20:54> Medical Records Attestation: I reviewed the patient's medical records. Lab Data Attestation: I reviewed the patient's lab results. Result diagrams: 02/10/20 17:03 02/10/20 17:03 Labs: Lab Results 02/10/20 02/10/20 02/10/20 Range/Units 17:03 17:03 17:03 WBC 10.6 (4.5-11.0) X10^3/uL RBC 4.12 (4.0-5.2) X10^6/uL Hgb 13.2 (12.0-16.0) g/dL Hct 38.9 (36-46) % MCV 94.4 (80-100) fL MCH 32.1 (26-34) PG MCHC 34.0 (30-36) % RDW 14.4 (11.6-14.8) % Plt Count 276 (150-400) X10^3/uL Neut % (Auto) 65.6 (50-75) % Lymph % (Auto) 24.4 L (25-40) % [place] % (Auto) 6.6 (3-14) % Eos % (Auto) 2.8 (2-4) % Baso % (Auto) 0.6 (0-2) % Neut # (Auto) 7000 (5160-2377) /uL Lymph # (Auto) 2600 (4410-0555) /uL [place] # (Auto) 700 (0-900) /uL Eos # (Auto) 300 (0-450) /uL Baso # (Auto) 100 (0-100) /uL PT (10.1-12.7) SECONDS INR (0.9-1.3) APTT (26.4-36.2) SECONDS D-Dimer 1905 H (<230) ng/mL Sodium (137-145) mmol/L Potassium (3.4-5.1) mmol/L Chloride (98-107) mmol/L Carbon Dioxide (22-32) mmol/L BUN (7-17) mg/dL Creatinine (0.52-1.04) mg/dL Estimated GFR (>60) mL/min BUN/Creatinine Ratio (6-22) Glucose (80-110) mg/dL Calcium (8.4-10.2) mg/dL Total Bilirubin (0.2-1.3) mg/dL AST (14-36) IU/L ALT (<35) IU/L Alkaline Phosphatase (38-126) U/L Total Creatine Kinase 76 (30-135) U/L CK-MB (CK-2) TNP CK-MB (CK-2) Rel Index TNP Troponin I 0.124 H* (0.01-0.034) ng/mL NT-Pro-B Natriuret Pep (<125) pg/mL Total Protein (6.3-8.2) g/dL Albumin (3.5-5.0) g/dL Globulin (1.7-4.1) g/dL Albumin/Globulin Ratio (1.0-2.8) COVID-19 PCR (Negative) 02/10/20 02/10/20 02/10/20 Range/Units 17:03 17:03 17:03 WBC (4.5-11.0) X10^3/uL RBC (4.0-5.2) X10^6/uL Hgb (12.0-16.0) g/dL Hct (36-46) % MCV (80-100) fL MCH (26-34) PG MCHC (30-36) % RDW (11.6-14.8) % Plt Count (150-400) X10^3/uL Neut % (Auto) (50-75) % Lymph % (Auto) (25-40) % [place] % (Auto) (3-14) % Eos % (Auto) (2-4) % Baso % (Auto) (0-2) % Neut # (Auto) (4603-7977) /uL Lymph # (Auto) (6299-4168) /uL [place] # (Auto) (0-900) /uL Eos # (Auto) (0-450) /uL Baso # (Auto) (0-100) /uL PT 12.5 (10.1-12.7) SECONDS INR 1.1 (0.9-1.3) APTT 32 D (26.4-36.2) SECONDS D-Dimer (<230) ng/mL Sodium 142 (137-145) mmol/L Potassium 4.0 (3.4-5.1) mmol/L Chloride 109 H (98-107) mmol/L Carbon Dioxide 25 (22-32) mmol/L BUN 18 H (7-17) mg/dL Creatinine 0.72 (0.52-1.04) mg/dL Estimated GFR > 60.0 (>60) mL/min BUN/Creatinine Ratio 25.0 H (6-22) Glucose 111 H (80-110) mg/dL Calcium 9.1 (8.4-10.2) mg/dL Total Bilirubin 0.5 (0.2-1.3) mg/dL AST 24 (14-36) IU/L ALT 21 (<35) IU/L Alkaline Phosphatase 87 (38-126) U/L Total Creatine Kinase (30-135) U/L CK-MB (CK-2) CK-MB (CK-2) Rel Index Troponin I (0.01-0.034) ng/mL NT-Pro-B Natriuret Pep 2130 H (<125) pg/mL Total Protein 7.2 (6.3-8.2) g/dL Albumin 4.3 (3.5-5.0) g/dL Globulin 2.9 (1.7-4.1) g/dL Albumin/Globulin Ratio 1.5 (1.0-2.8) COVID-19 PCR (Negative) 02/10/20 Range/Units 17:11 WBC (4.5-11.0) X10^3/uL RBC (4.0-5.2) X10^6/uL Hgb (12.0-16.0) g/dL Hct (36-46) % MCV (80-100) fL MCH (26-34) PG MCHC (30-36) % RDW (11.6-14.8) % Plt Count (150-400) X10^3/uL Neut % (Auto) (50-75) % Lymph % (Auto) (25-40) % [place] % (Auto) (3-14) % Eos % (Auto) (2-4) % Baso % (Auto) (0-2) % Neut # (Auto) (6968-6185) /uL Lymph # (Auto) (9924-4634) /uL [place] # (Auto) (0-900) /uL Eos # (Auto) (0-450) /uL Baso # (Auto) (0-100) /uL PT (10.1-12.7) SECONDS INR (0.9-1.3) APTT (26.4-36.2) SECONDS D-Dimer (<230) ng/mL Sodium (137-145) mmol/L Potassium (3.4-5.1) mmol/L Chloride (98-107) mmol/L Carbon Dioxide (22-32) mmol/L BUN (7-17) mg/dL Creatinine (0.52-1.04) mg/dL Estimated GFR (>60) mL/min BUN/Creatinine Ratio (6-22) Glucose (80-110) mg/dL Calcium (8.4-10.2) mg/dL Total Bilirubin (0.2-1.3) mg/dL AST (14-36) IU/L ALT (<35) IU/L Alkaline Phosphatase (38-126) U/L Total Creatine Kinase (30-135) U/L CK-MB (CK-2) CK-MB (CK-2) Rel Index Troponin I (0.01-0.034) ng/mL NT-Pro-B Natriuret Pep (<125) pg/mL Total Protein (6.3-8.2) g/dL Albumin (3.5-5.0) g/dL Globulin (1.7-4.1) g/dL Albumin/Globulin Ratio (1.0-2.8) COVID-19 PCR Negative (Negative) Imaging Data Chest x-ray: Radiologist's Impression: [address] [id number] XRay Report Signed Patient: Rosario Bundy [facility]#: [id number] : 7At:[id number] Age/Sex: 74 / FDate of Service: 02/10/20 Loc: ED Accession Number: [id number] Procedure: XR chest 1V Ordering Provider: Jaky Kwon PROCEDURE: XR CHEST 1V INDICATIONS: SOB TECHNIQUE: One view of the chest was acquired. COMPARISON: [facility], , XR CHEST 1 VIEW, 01/02/2018, 10:10. FINDINGS: Surgical changes and devices: None. Lungs and pleura: Lungs are clear. No pleural effusions or pneumothorax. Mediastinum: Mediastinal contours appear normal. Heart size is enlarged. Bones and chest wall: No suspicious bony lesions. Overlying soft tissues appear unremarkable. IMPRESSION: Mild cardiomegaly. No acute cardiopulmonary abnormalities. Dictated by: Tommy Davila M.D. on 02/10/2020 at 16:56 Approved by: Tommy Davila M.D. on 02/10/2020 at 17:09 CT scan - chest: Radiologist's Impression: [address] [address] [address] Scan Report Signed Patient: Rosario Bundy [facility]#: [id number] : 7Acct:[id number] Age/Sex: 74 / FDate of Service: 02/10/20 Loc: ED Accession Number: [id number] Procedure: CT angio chest PE protocol Ordering Provider: Jaky Kwon PROCEDURE: CT ANGIO CHEST PE PROTOCOL INDICATIONS: SOB, elevated D-dimer TECHNIQUE: After the administration of intravenous contrast, 2 mm thick sections acquired from the pulmonary apices to the posterior costophrenic angles. 3-dimensional maximum intensity projection (MIP) coronal and sagittal reformats were then acquired through the thorax. For radiation dose reduction, the following was used: automated exposure control, adjustment of mA and/or kV according to patient size. COMPARISON: [facility], CT, CT ANGIO CHEST PE PROTOCOL, 12/29/2017, 10:00. FINDINGS: Image quality: Excellent. Pulmonary arteries: Multiple nonocclusive filling defects are noted within the distal aspect of the main bilateral pulmonary arteries. No saddle embolus within the main pulmonary trunk. Nonocclusive thrombus is visualized within the segmental and subsegmental branches of the bilateral lower and upper lobes. Lungs and pleura: A 3 mm pulmonary nodule is present in the posterior right lower lobe (series 5/image 166). A 5 mm pulmonary nodule is present at the right lung base (series 5/image 199). A 4 mm pulmonary nodule is present at the left lung base (series 5/image 2 26). No pleural effusion or pneumothorax. No acute airspace opacities. Central and peripheral airways are patent. Mediastinum: Heart size is normal, without pericardial effusion. The right ventricle is similar in size to the left ventricle. No leftward interventricular septal bowing. No mediastinal or hilar adenopathy. Thoracic aorta is normal in caliber and enhancement. Esophagus is normal in caliber, without hiatal hernia. Bones and chest wall: No suspicious bony lesions. Ribs and thoracic spine appear intact throughout. Thyroid gland is unremarkable . No axillary or supraclavicular adenopathy. Abdomen: Visualized upper abdominal solid organs appear normal in the early arterial phase of enhancement. IMPRESSION: 1. Pulmonary emboli as above. These are predominantly nonocclusive in nature. 2. No definite findings to suggest heart strain; however echocardiogram is recommended if there is clinical concern for right heart strain. These findings were discussed with Dr. Pickering at 6:43 p.m. On February 10, 2020. 3. 4 and 5 mm pulmonary nodules as above. 12 month follow-up CT recommended. Dictated by: Maura Oneill M.D. on 02/10/2020 at 18:38 Approved by: Maura Oneill M.D. on 02/10/2020 at 18:49 ECG Data Interpretation: 1700: Sinus tachycardia, rate 102, DE interval 188, QTC 456. No ST elevation or ST depression. No T-wave inversion. EKG also viewed by Dr. Pickering. [facility] Narrative Medical decision making narrative: 74-year-old female presents emergency department for exertional shortness of breath. High suspicion for PE given she recently continued Eliquis. D-dimer elevated, CT indicated which shows multiple PEs. Elevated troponin without evidence of ischemic change on EKG. Elevated BNP signifies ends heart strain. Patient is hemodynamically stable, does not require options this time. Alert and awake, talking full sentences without significant dyspnea. Heparin was started, patient was transferred to [facility] after acceptance by hospitalist per Dr. Picekring in conversation. Patient consented to transfer via ALS <Mj Pickering, DO - Last Filed: 02/11/20 00:46> Lab Data Labs: Lab Results 02/10/20 02/10/20 02/10/20 Range/Units 17:03 17:03 17:03 WBC 10.6 (4.5-11.0) X10^3/uL RBC 4.12 (4.0-5.2) X10^6/uL Hgb 13.2 (12.0-16.0) g/dL Hct 38.9 (36-46) % MCV 94.4 (80-100) fL MCH 32.1 (26-34) PG MCHC 34.0 (30-36) % RDW 14.4 (11.6-14.8) % Plt Count 276 (150-400) X10^3/uL Neut % (Auto) 65.6 (50-75) % Lymph % (Auto) 24.4 L (25-40) % [place] % (Auto) 6.6 (3-14) % Eos % (Auto) 2.8 (2-4) % Baso % (Auto) 0.6 (0-2) % Neut # (Auto) 7000 (3549-1706) /uL Lymph # (Auto) 2600 (5042-8723) /uL [place] # (Auto) 700 (0-900) /uL Eos # (Auto) 300 (0-450) /uL Baso # (Auto) 100 (0-100) /uL PT (10.1-12.7) SECONDS INR (0.9-1.3) APTT (26.4-36.2) SECONDS D-Dimer 1905 H (<230) ng/mL Sodium (137-145) mmol/L Potassium (3.4-5.1) mmol/L Chloride (98-107) mmol/L Carbon Dioxide (22-32) mmol/L BUN (7-17) mg/dL Creatinine (0.52-1.04) mg/dL Estimated GFR (>60) mL/min BUN/Creatinine Ratio (6-22) Glucose (80-110) mg/dL Calcium (8.4-10.2) mg/dL Total Bilirubin (0.2-1.3) mg/dL AST (14-36) IU/L ALT (<35) IU/L Alkaline Phosphatase (38-126) U/L Total Creatine Kinase 76 (30-135) U/L CK-MB (CK-2) TNP CK-MB (CK-2) Rel Index TNP Troponin I 0.124 H* (0.01-0.034) ng/mL NT-Pro-B Natriuret Pep (<125) pg/mL Total Protein (6.3-8.2) g/dL Albumin (3.5-5.0) g/dL Globulin (1.7-4.1) g/dL Albumin/Globulin Ratio (1.0-2.8) COVID-19 PCR (Negative) 02/10/20 02/10/20 02/10/20 Range/Units 17:03 17:03 17:03 WBC (4.5-11.0) X10^3/uL RBC (4.0-5.2) X10^6/uL Hgb (12.0-16.0) g/dL Hct (36-46) % MCV (80-100) fL MCH (26-34) PG MCHC (30-36) % RDW (11.6-14.8) % Plt Count (150-400) X10^3/uL Neut % (Auto) (50-75) % Lymph % (Auto) (25-40) % [place] % (Auto) (3-14) % Eos % (Auto) (2-4) % Baso % (Auto) (0-2) % Neut # (Auto) (6904-3470) /uL Lymph # (Auto) (8151-4928) /uL [place] # (Auto) (0-900) /uL Eos # (Auto) (0-450) /uL Baso # (Auto) (0-100) /uL PT 12.5 (10.1-12.7) SECONDS INR 1.1 (0.9-1.3) APTT 32 D (26.4-36.2) SECONDS D-Dimer (<230) ng/mL Sodium 142 (137-145) mmol/L Potassium 4.0 (3.4-5.1) mmol/L Chloride 109 H (98-107) mmol/L Carbon Dioxide 25 (22-32) mmol/L BUN 18 H (7-17) mg/dL Creatinine 0.72 (0.52-1.04) mg/dL Estimated GFR > 60.0 (>60) mL/min BUN/Creatinine Ratio 25.0 H (6-22) Glucose 111 H (80-110) mg/dL Calcium 9.1 (8.4-10.2) mg/dL Total Bilirubin 0.5 (0.2-1.3) mg/dL AST 24 (14-36) IU/L ALT 21 (<35) IU/L Alkaline Phosphatase 87 (38-126) U/L Total Creatine Kinase (30-135) U/L CK-MB (CK-2) CK-MB (CK-2) Rel Index Troponin I (0.01-0.034) ng/mL NT-Pro-B Natriuret Pep 2130 H (<125) pg/mL Total Protein 7.2 (6.3-8.2) g/dL Albumin 4.3 (3.5-5.0) g/dL Globulin 2.9 (1.7-4.1) g/dL Albumin/Globulin Ratio 1.5 (1.0-2.8) COVID-19 PCR (Negative) 02/10/20 Range/Units 17:11 WBC (4.5-11.0) X10^3/uL RBC (4.0-5.2) X10^6/uL Hgb (12.0-16.0) g/dL Hct (36-46) % MCV (80-100) fL MCH (26-34) PG MCHC (30-36) % RDW (11.6-14.8) % Plt Count (150-400) X10^3/uL Neut % (Auto) (50-75) % Lymph % (Auto) (25-40) % [place] % (Auto) (3-14) % Eos % (Auto) (2-4) % Baso % (Auto) (0-2) % Neut # (Auto) (5954-5148) /uL Lymph # (Auto) (2413-1070) /uL [place] # (Auto) (0-900) /uL Eos # (Auto) (0-450) /uL Baso # (Auto) (0-100) /uL PT (10.1-12.7) SECONDS INR (0.9-1.3) APTT (26.4-36.2) SECONDS D-Dimer (<230) ng/mL Sodium (137-145) mmol/L Potassium (3.4-5.1) mmol/L Chloride (98-107) mmol/L Carbon Dioxide (22-32) mmol/L BUN (7-17) mg/dL Creatinine (0.52-1.04) mg/dL Estimated GFR (>60) mL/min BUN/Creatinine Ratio (6-22) Glucose (80-110) mg/dL Calcium (8.4-10.2) mg/dL Total Bilirubin (0.2-1.3) mg/dL AST (14-36) IU/L ALT (<35) IU/L Alkaline Phosphatase (38-126) U/L Total Creatine Kinase (30-135) U/L CK-MB (CK-2) CK-MB (CK-2) Rel Index Troponin I (0.01-0.034) ng/mL NT-Pro-B Natriuret Pep (<125) pg/mL Total Protein (6.3-8.2) g/dL Albumin (3.5-5.0) g/dL Globulin (1.7-4.1) g/dL Albumin/Globulin Ratio (1.0-2.8) COVID-19 PCR Negative (Negative) Discharge Plan Departure Patient Disposition: [facility] Clinical Impression: Pulmonary embolism Qualifiers: Pulmonary embolism type: unspecified Chronicity: acute Acute cor pulmonale presence: unspecified Qualified Code(s): I26.99 - Other pulmonary embolism without acute cor pulmonale Discharge Date/Time: 02/10/20 21:24 Prescriptions: No Action Xarelto 20 mg tablet RF: 0 levothyroxine 75 mcg tablet RF: 0 alprazolam [Xanax] 0.25 mg Tablet 0.25 mg PO DAILY PRN (Reason: Anxiety) RF: 0 fluticasone propionate [Flonase Allergy Relief] 50 mcg/actuation [place],Suspension 1 spray INTRANASAL BEDTIME RF: 0 acetaminophen 325 mg Tablet 650 mg PO DAILY PRN (Reason: Pain (Scale Score 4-6)) Qty: 60 RF: 0 Referrals: Karoline Hill ARNP [Primary Care Provider] - <Mj Pickering DO - Last Filed: 02/11/20 00:46> Cosign ED Attending Cosignature Attestation: I was immediately available in the department for consultation. This documentation has been reviewed and I agree with assessment and plan. Supervised by Mj Pickering DO
[2020-02-10 17:31] LABS: Add Manual Diff / Slide Review NO; Basophils Absolute Auto 100 /uL (0-100); Basophils Percent Auto 0.6 % (0-2); Eosinophils Absolute Auto 300 /uL (0-450); Eosinophils Percent Auto 2.8 % (2-4); Hematocrit 38.9 % (36-46); Hemoglobin 13.2 g/dL (12.0-16.0); Lymphocytes Absolute Auto 2600 /uL (1100-4500); Lymphocytes Percent Auto 24.4 % (25-40); Mean Corpuscular Hemoglobin 32.1 PG (26-34); Mean Corpuscular Volume 94.4 fL (80-100); Monocytes Absolute Auto 700 /uL (0-900); Monocytes Percent Auto 6.6 % (3-14); Neutrophils Absolute Auto 7000 /uL (1500-7000); Neutrophils Percent Auto 65.6 % (50-75); Platelet Count 276 X10^3/uL (150-400); Red Blood Cell Count 4.12 X10^6/uL (4.0-5.2); Red Cell Distribution Width 14.4 % (11.6-14.8); White Blood Cell Count 10.6 X10^3/uL (4.5-11.0)
[2020-02-10 17:34] LABS: COVID19 -Nasal RAPID Negative (Negative)
[2020-02-10 17:46] LABS: Alanine Aminotransferase 21 IU/L (<35); Albumin 4.3 g/dL (3.5-5.0); Albumin Globulin Ratio 1.5 (1.0-2.8); Alkaline Phosphatase 87 U/L (38-126); Aspartate Aminotransferase 24 IU/L (14-36); Bilirubin Total 0.5 mg/dL (0.2-1.3); Blood Urea Nitrogen 18 mg/dL (7-17); Calcium 9.1 mg/dL (8.4-10.2); Carbon Dioxide 25 mmol/L (22-32); Chloride 109 mmol/L (98-107); Creatine Kinase 76 U/L (30-135); Estimated Glomerular Filt Rate > 60.0 mL/min (>60); Globulin 2.9 g/dL (1.7-4.1); Glucose 111 mg/dL (80-110); HEMOLYSIS < 15 (0-50); Sodium 142 mmol/L (137-145); Total Protein 7.2 g/dL (6.3-8.2)
[2020-02-10 17:57] LABS: D Dimer 1905 ng/mL (<230)
--- NOTE | 2020-02-10 18:01 | DI.CT.S_ITS ---
PROCEDURE: CT ANGIO CHEST PE PROTOCOL INDICATIONS: SOB, elevated D-dimer TECHNIQUE: After the administration of intravenous contrast, 2 mm thick sections acquired from the pulmonary apices to the posterior costophrenic angles. 3-dimensional maximum intensity projection (MIP) coronal and sagittal reformats were then acquired through the thorax. For radiation dose reduction, the following was used: automated exposure control, adjustment of mA and/or kV according to patient size. COMPARISON: [facility], CT, CT ANGIO CHEST PE PROTOCOL, 12/29/2017, 10:00. FINDINGS: Image quality: Excellent. Pulmonary arteries: Multiple nonocclusive filling defects are noted within the distal aspect of the main bilateral pulmonary arteries. No saddle embolus within the main pulmonary trunk. Nonocclusive thrombus is visualized within the segmental and subsegmental branches of the bilateral lower and upper lobes. Lungs and pleura: A 3 mm pulmonary nodule is present in the posterior right lower lobe (series 5/image 166). A 5 mm pulmonary nodule is present at the right lung base (series 5/image 199). A 4 mm pulmonary nodule is present at the left lung base (series 5/image 2 26). No pleural effusion or pneumothorax. No acute airspace opacities. Central and peripheral airways are patent. Mediastinum: Heart size is normal, without pericardial effusion. The right ventricle is similar in size to the left ventricle. No leftward interventricular septal bowing. No mediastinal or hilar adenopathy. Thoracic aorta is normal in caliber and enhancement. Esophagus is normal in caliber, without hiatal hernia. Bones and chest wall: No suspicious bony lesions. Ribs and thoracic spine appear intact throughout. Thyroid gland is unremarkable . No axillary or supraclavicular adenopathy. Abdomen: Visualized upper abdominal solid organs appear normal in the early arterial phase of enhancement. IMPRESSION: 1. Pulmonary emboli as above. These are predominantly nonocclusive in nature. 2. No definite findings to suggest heart strain; however echocardiogram is recommended if there is clinical concern for right heart strain. These findings were discussed with Dr. Pickering at 6:43 p.m. On February 10, 2020. 3. 4 and 5 mm pulmonary nodules as above. 12 month follow-up CT recommended. Dictated by: Maura Oneill M.D. on 02/10/2020 at 18:38 Approved by: Maura Oneill M.D. on 02/10/2020 at 18:49
[2020-02-10] MEDS: SODIUM CHLORIDE 0.9% 1,000 ML 500 ML IV (18:07)
[2020-02-10 18:25] LABS: Troponin I 0.124 ng/mL (0.01-0.034)
[2020-02-10 18:51] LABS: NT-proBNP (BNP-Adult 18+) 2130 pg/mL (<125)
[2020-02-10] MEDS: HEPARIN 5,000 UNIT/ML VIAL 7500 UNIT IV (20:04)
[2020-02-10] MEDS: HEPARIN DRIP 25,000 UNIT/500 ML IV.SOLN 35.748 UNIT IV (20:05)
[2020-02-10 20:06] LABS: INR 1.1 (0.9-1.3); Prothrombin Time 12.5 SECONDS (10.1-12.7)
[2020-02-10 20:09] LABS: PTT Partial Thromboplastin Tim 32 SECONDS (26.4-36.2)
[2020-02-10] MEDS: PARoxetine 20 MG TABLET 10 MG PO (20:58)
== END 2020-02-10 21:24 | disposition short-term general hospital (02) ==
PROVIDERS: Emergency Provider Nurse Practitioner; PCP Nurse Practitioner
DX: I26.99 Other pulmonary embolism without acute cor pulmonale (principal); R74.8 Abnormal levels of other serum enzymes; Z79.01 Long term (current) use of anticoagulants
CPT/HCPCS: 71045; 71275; 80053; 82550; 83880; 84484; 85025; 85379; 85610; 85730; 87635; 93005; 96361; 96365; 96375; 99284; 99285; J1644; Q9967

== ENCOUNTER → 2020-06-19 08:52 | Outpatient (CLI) | payer MEDICARE, BC, SELFPAY ==
[2017-12-13 14:56] VITALS: BMI 32.1
--- NOTE | 2020-06-19 | DI.ECHO.S_ITS ---
[facility]---------+ [facility] +---------+ : : [address] [address] : : : : [id number] : : : : Phone: [phone]+ Echocardiogram Report + + :Name: MIGUEL A BUTLER Study Date: 06/19/2020 Height: 69 in : :[facility] ReadingLocation: Weight: 200 lb : : Gender: Female BSA: 2.1 m2 : :: 1945 Age: 74 yrs BP: 150/100 mmHg: :Reason For Study: HISTORY OF PULMONARY EMBOLISM : :Ordering Physician: FARA, : :MAYO Performed By: Jennifer Estevez : :Referring: MAYO ASENCIO : + + Interpretation Summary Limited Echo: 1) Normal left ventricular and systolic function (EF 55-60%). 2) Normal right ventricular size with low normal function. 3) Pulmonary artery pressures cannot be estimated because of the lack of a measurable TR jet velocity but the IVC suggests a CVP of around 3 mmHg. 4) Compared to the Echo done 02/11/2020, cor pulmonale due to acute pulmonary hypertension has resolved on this study. Procedure: A two-dimensional transthoracic echocardiogram with color flow and Doppler was performed in limited views only to assess right ventricular size and function, CVP and PAP.. The study quality was technically adequate. Comparison is made with the echocardiogram of 02/11/2020. The patient was in sinus rhythm with heart rates between 79-94 bpm during the exam. Left Ventricle: The left ventricle is normal in size. Left ventricular wall thickness is at the upper limits of normal. The ejection fraction is estimated to be 55-60%. Right Ventricle: The right ventricle is normal size. Atria: Both atria are normal in size. Tricuspid Valve: Pulmonary artery pressures cannot be estimated because of the lack of a measurable TR jet velocity but the IVC suggests a CVP of around 3 mmHg. There is a trace or physiologic amount of tricuspid regurgitation. Great Vessels: The IVC is of normal diameter and collapses greater than 50% with a sniff. This suggests a low right atrial pressure of 3 mm Hg. Pericardium/ Pleura There is no pericardial effusion. There is no pleural effusion. MMode/2D Measurements & Calculations LVIDd: 5.0 cm LA A2 area: 17.5 cm2 LVIDs: 3.5 cm LA A4 area: 17.1 cm2 FS: 30.6 % LA length (vol): 5.1 cm IVSd: 1.1 cm LA vol: 49.5 ml LVPWd: 0.96 cm LA vol index: 24.0 ml/m2 LV bearden. diameter/BSA (cm/m^2): 2.4 LV sys. diameter/BSA (cm/m^2): 1.7 RA long axis: 4.3 cm RVD1 (basal): 3.8 cm RA area: 14.9 cm2 TAPSE: 1.9 cm RA vol: 43.7 ml RA : 21.2 ml/m2 IVC diam: 1.4 cm Doppler Measurements & Calculations PA V2 max: 77.5 cm/sec PA V2 mean: 55.3 cm/sec PA mean P.3 mmHg PA pr(Accel): 41.3 mmHg Reading Physician:08:15 PM
== END ==
PROVIDERS: PCP Nurse Practitioner; Referring Provider Internal Medicine Cardiovascular Disease; Visit Provider Internal Medicine Cardiovascular Disease
DX: Z86.711 Personal history of pulmonary embolism (principal)
CPT/HCPCS: 93307

== ENCOUNTER 2020-07-21 22:22 | Emergency (ER) | payer MEDICARE, BC, SELFPAY ==
[2017-12-13 14:56] VITALS: BMI 32.1
--- NOTE | 2020-07-21 22:25 | ED.EXTPRO ---
HPI - Extremity Problem General Chief complaint: Extremity Problem,Nontraumatic Stated complaint: States hx PE, pain behind R knee, swelling L foot Time Seen by Provider: 07/21/20 22:24 Source: patient Mode of arrival: Ambulatory Limitations: no limitations History of Present Illness HPI Narrative: 75-year-old former smoker with history of multiple pulmonary emboli and DVTs, currently on Xarelto presents with a chief complaint of pain and swelling behind her left knee for the past few days. She states that it feels the same and looks the same as the DVT that led to her 1st pulmonary embolism. Her initial clot was a few years ago after a left hip surgery and she was initially started on Eliquis. Her body ?did not like it ?all that much and she ended up coming off the Eliquis prior to a dental surgery and soon thereafter developed another pulmonary embolism and has been on Xarelto for the past year and a half or so. She states she has not missed any doses in that time frame. She is not dizzy nor weak or lightheaded. She denies any chest pain, shortness of breath or palpitations. She has had no cough or hemoptysis. She denies any injury to her knee though states that bilaterally she has bad hips and knees and often her gait changes due to aches and pains here and there. She denies any fever or chills. Her discomfort is moderate at most and worse with palpation and walking. She denies any radiation of the pain. Related Data Home Medications Medication Instructions Recorded Confirmed alprazolam [Xanax] 0.25 mg PO DAILY PRN 12/10/17 12/29/17 fluticasone propionate [Flonase 1 spray INTRANASAL BEDTIME 12/10/17 12/29/17 Allergy Relief] levothyroxine 12/19/19 rivaroxaban [Xarelto] mg 12/19/19 Previous Rx's Medication Instructions Recorded acetaminophen 650 mg PO DAILY PRN #60 tab 12/14/17 Allergies Allergy/AdvReac Type Severity Reaction Status Date / Time Penicillins Allergy Mild Rash Verified 02/10/20 17:05 Sulfa (Sulfonamide Allergy Mild Rash Verified 02/10/20 17:05 Antibiotics) etodolac Allergy Blister Verified 02/10/20 17:05 hydroxyzine Allergy Verified 02/10/20 17:05 iodine Allergy Verified 02/10/20 17:05 NSAIDS (Non-Steroidal AdvReac Mild Tachycardia Verified 02/10/20 17:05 Anti-Inflamma Review of Systems Constitutional Constitutional: Denies chills, Denies fatigue, Denies fever(s), Denies frequent falls, Denies lethargy and Denies weakness Eyes Eyes: Denies change in vision, Denies eye discharge, Denies irritation and Denies loss of vision ENT Ears, Nose, Mouth, and Throat: Denies change in voice, Denies dizziness, Denies neck pain, Denies sore throat and Denies throat swelling Cardiovascular Cardiovascular: Denies chest pain, Denies irregular heart rhythm, Denies lightheadedness, Denies palpitations, Denies dyspnea, Denies dyspnea on exertion and Denies orthopnea Respiratory Respiratory: Denies cough, Denies dyspnea, Denies dyspnea on exertion and Denies wheezing Gastrointestinal Gastrointestinal: Denies abdominal pain, Denies change in bowel habits, Denies diarrhea, Denies nausea and Denies vomiting Musculoskeletal Musculoskeletal: Reports joint swelling, Denies neck pain and Denies numbness Integumentary/Breasts Skin/Breast: Denies pruritus, Denies erythema, Denies rash and Denies wounds Neurologic Neurologic: Denies behavioral changes, Denies confusion, Denies dizziness, Denies frequent falls, Denies loss of vision, Denies numbness and Denies weakness Psychiatric Psychiatric: Denies anxiety, Denies behavioral changes, Denies confusion, Denies depression, Denies homicidal ideation and Denies suicidal ideation Endocrine Endocrine: Denies fatigue, Denies flushing and Denies palpitations Hematologic/Lymphatic Hematologic/Lymphatic: Denies easy bruising Allergic/Immunologic Allergic/Immunologic: Denies urticaria, Denies throat swelling and Denies wheezing Patient History Medical History (Updated 07/21/20 @ 23:35 by Mj Pickering DO) Anxiety Arthritis Depression (emotion) Hearing loss HTN (hypertension) Hypothyroid Irritable bowel syndrome (IBS) Pulmonary embolism Seasonal allergies Surgical History History of hip surgery Hx of hand surgery Hx of tooth extraction Status post cataract extraction of both eyes with insertion of intraocular lens Status post complete hysterectomy Status post surgery of both feet Social History household members: none Smoking Status: Former smoker alcohol intake: current Smoking Status: Former smoker alcohol intake frequency: 0-2 drinks per day Substance Use Type: does not use Exam Narrative Exam Narrative: GEN: AOx3 and in mild distress EYES: Pupils are equal, round, and reactive to light and accommodation. Extraoccular muscles are intact bilaterally. There is no subconjunctival hemorrhage or exudate. CHEST: Lungs are clear to auscultation bilaterally and free of wheezes, rales, or rhonchi. Heart rate is regular rhythm, there are no murmurs, clicks, rubs, or gallops. There is no chest wall tenderness. ABD: Abdomen is soft and nontender. There is no guarding or rebound. Bowel sounds are normal in all 4 quadrants. There is no mass or organomegaly. EXT: Full painless ROM of all extremities with no loss of sensation or strength. Perhaps minimal swelling noted in the popliteal fossa of her left knee, no significant swelling, erythema or warmth. No pain in medial thigh SKIN: Warm, pink, and dry. No erythema or rash Initial Vital Signs Initial Vital Signs: Vital Signs Temperature 98.0 F 07/21/20 22:41 Pulse Rate 111 H 07/21/20 22:41 Respiratory Rate 18 07/21/20 22:41 Blood Pressure 187/98 H 07/21/20 22:41 Pulse Oximetry 100 07/21/20 22:41 Course Orders Ordered: ED Orders 07/21/20 22:33 US periph venous low extrem lt Stat Vital Signs Vital signs: Vital Signs - 8 hr 07/21/20 22:41 Temperature 98.0 F Pulse Rate 111 H Respiratory Rate 18 Blood Pressure 187/98 H Pulse Oximetry 100 MDM - Extremity (Nontraumatic) Imaging Data US - DVT: Radiologist's Impression: No DVT MDM Narrative Medical decision making narrative: Patient reports swelling behind her left knee in the absence of fever, obvious redness. Given her history of DVTs and pulmonary emboli as she is very concerned about a possible DVT. This is thought unlikely given lack of redness, warmth, findings on ultrasound an ongoing use of anticoagulation. Infection considered but thought unlikely given lack of fever chills nor erythema or warmth. After ultrasound patient states that she does remember she may have tweaked her knee a few days ago and suggest this is the likely cause of her swelling. This does seem reasonable and remainder of history, physical and objective findings are very reassuring. Return precautions given and questions answered to her apparent satisfaction Discharge Plan Departure Patient Disposition: Home Clinical Impression: Left leg swelling Instructions: DI for Leg Pain Activity Restrictions/Additional Instructions: *You have been diagnosed with [left leg pain, your exam and ultrasound would suggest there is a low likelihood for clot.] *What to do: *Take medications as directed *Follow up with your primary care provider in 2-3 days, call for an appointment. Let them know you were seen in the Emergency Department and that we ask that you be seen in follow up *Return to ER if you should have any new, worsening or concerning symptoms Prescriptions: No Action Xarelto 20 mg tablet RF: 0 levothyroxine 75 mcg tablet RF: 0 alprazolam [Xanax] 0.25 mg Tablet 0.25 mg PO DAILY PRN (Reason: Anxiety) RF: 0 fluticasone propionate [Flonase Allergy Relief] 50 mcg/actuation [place],Suspension 1 spray INTRANASAL BEDTIME RF: 0 acetaminophen 325 mg Tablet 650 mg PO DAILY PRN (Reason: Pain (Scale Score 4-6)) Qty: 60 RF: 0
--- NOTE | 2020-07-21 22:33 | DI.US.S_ITS ---
PROCEDURE: US PERIPH VENOUS LOW EXTREM LT INDICATIONS: PAIN/SWELLING LEFT KNEE TECHNIQUE: Real-time imaging, as well as color and pulse Doppler interrogation, were performed of the lower extremity deep veins from the inguinal ligament to the popliteal fossa. COMPARISON: None. FINDINGS: The common femoral, femoral and popliteal veins are normally compressible, and free of intraluminal thrombus. Color and pulse Doppler demonstrate normal phasic intraluminal flow. There is normal augmentation response to distal compression maneuver. IMPRESSION: No evidence of deep vein thrombosis involving the left lower extremity. Dictated by: Marjorie Cobian MD, PhD on 07/22/2020 at 8:21 Approved by: Marjorie Cobian MD, PhD on 07/22/2020 at 8:22
[2020-07-21 22:41] VITALS: BP 187/98; PULSE 111; RESP 18; TEMP 36.7; O2SAT 100
== END 2020-07-21 23:45 | disposition home or self-care (01) ==
PROVIDERS: Emergency Provider Emergency Medicine
DX: R22.42 Localized swelling, mass and lump, left lower limb (principal)
CPT/HCPCS: 93971; 99283

== ENCOUNTER → 2022-04-23 14:28 | Outpatient (CLI) | payer MEDICARE, BC, SELFPAY ==
[2017-12-13 14:56] VITALS: BMI 32.1
[2022-04-23 15:07] LABS: Add Manual Diff / Slide Review NO; Basophils Absolute Auto 100 /uL (0-100); Basophils Percent Auto 0.7 % (0-2); Eosinophils Absolute Auto 400 /uL (0-450); Eosinophils Percent Auto 4.8 % (2-4); Hematocrit 38.5 % (36-46); Lymphocytes Absolute Auto 2200 /uL (1100-4500); Lymphocytes Percent Auto 24.3 % (25-40); Mean Corpuscular HGB Conc 33.8 % (30-36); Mean Corpuscular Hemoglobin 31.7 PG (26-34); Monocytes Absolute Auto 500 /uL (0-900); Monocytes Percent Auto 6.1 % (3-14); Neutrophils Absolute Auto 5700 /uL (1500-7000); Neutrophils Percent Auto 64.1 % (50-75); Platelet Count 316 X10^3/uL (150-400); Red Blood Cell Count 4.09 X10^6/uL (4.0-5.2); Red Cell Distribution Width 13.5 % (11.6-14.8); White Blood Cell Count 8.9 X10^3/uL (4.5-11.0)
[2022-04-23 15:24] LABS: Appearance Urine UA CLEAR; Bilirubin Urine UA NEGATIVE (NEGATIVE); Color Urine UA YELLOW; Glucose Urine UA NEGATIVE (Negative); Ketones Urine UA NEGATIVE (NEGATIVE); Leukocyte Esterase Urine UA 1+ (NEGATIVE); Nitrite Urine UA POSITIVE (Negative); Occult Blood Urine UA TRACE-LYSED (Negative); Protein Urine UA NEGATIVE (Negative); Urobilinogen Urine UA 0.2 E.U./dL (0.2)
[2022-04-23 15:28] LABS: BUN Creatinine Ratio 28.4 (6-22); Blood Urea Nitrogen 19 mg/dL (7-17); Calcium 9.2 mg/dL (8.4-10.2); Carbon Dioxide 25 mmol/L (22-32); Chloride 106 mmol/L (98-107); Estimated Glomerular Filt Rate > 60 mL/min (>60); Glucose 106 mg/dL (80-110); HEMOLYSIS < 15 (0-50); Potassium 4.2 mmol/L (3.4-5.1); Sodium 140 mmol/L (137-145)
[2022-04-23 15:29] LABS: Hemoglobin A1C% w Est Avg Glu 5.2 % (4.0-6.0)
[2022-04-23 16:08] LABS: RBC Urine 0-1/HPF (0-5/HPF)
[2022-04-23 16:09] LABS: Amorphous Sediment Urine 1+; Bacteria Urine Moderate (10-30); Culture Indicated Urine Specimen Cultured; Mucus Urine 1+ (Negative); Squamous Epithelial Cell Urine 0-1 /HPF (0-5/HPF); WBC Urine 10-30/HPF (0-5/HPF)
== END ==
PROVIDERS: Referring Provider Orthopaedic Surgery; Visit Provider Orthopaedic Surgery
DX: Z01.818 Encounter for other preprocedural examination (principal); R73.9 Hyperglycemia, unspecified; Z01.812 Encounter for preprocedural laboratory examination; N39.0 Urinary tract infection, site not specified
CPT/HCPCS: 36415; 80048; 81001; 83036; 85025; 87077; 87086; 87186; 93005

== ENCOUNTER 2022-05-19 05:38 | Day surgery (SDC) | payer MEDICARE, BC, SELFPAY ==
[2017-12-13 14:56] VITALS: BMI 32.1
[2022-05-12 12:59] VITALS: BMI 29.5
[2022-05-19] VITALS (10 sets, daily range): BP systolic 110–146; BP diastolic 66–98; PULSE 77–109; RESP 13–21; TEMP 36–36.6; O2SAT 95–100; BMI 29.5
[2022-05-19 07:09] LABS: COVID19 -Nasal RAPID Negative (Negative)
[2022-05-19] MEDS: CELECOXIB 200 MG CAPSULE PO (07:11)
[2022-05-19] MEDS: ACETAMINOPHEN 325 MG TABLET 975 MG PO (07:11)
[2022-05-19] MEDS: VANCOMYCIN 1,000 MG/200 ML PIGGYBACK 200 MG IV (07:12)
[2022-05-19] MEDS: LACTATED RINGERS 1,000 ML 84 ML IV ×2 (07:12→09:54)
--- NOTE | 2022-05-19 07:42 | PM.PREOP ---
Pre-operative Note Interval Note History & Physical reviewed/Exam performed by Physician: Yes Changes to H&P: No
--- NOTE | 2022-05-19 07:43 | PM.OP.1 ---
Operative Date/Time/Diagnoses Date of procedure: 05/19/22 Time of procedure: 07:43 Pre-op diagnosis: left knee OA Post-op diagnosis: same Procedure & Clinicians Procedure: Left total knee arthroplasty Same procedure as scheduled: Yes Indications: The patient has had progressively worsening left knee pain with radiographic changes consistent with arthritis. Non-operative management has failed and the patient has requested total knee replacement. The risks, benefits and alternatives to surgery were discussed with the patient prior to proceeding. Risks discussed included, but were not limited to, failure to relieve pain, stiffness, infection, nerve damage, deep venous thrombosis, pulmonary embolism, stroke, coma, heart attack, permanent paralysis and , as well as the potential need for eventual revision of the prosthetic. Surgeon: Liudmlia Strickland Underwear Hemmer: Cee Buitrago Anesthesia Type: General and Spinal Operative Notes Findings: Severe left knee OA Closure Type: primary Specimen(s): none sent Prosthetic devices, grafts, tissues, transplants, or devices: Journey BCS 2 size femur 6, size 4 tibia, +9 poly, 35 mm patella Estimated Blood Loss (mL): 250 Blood products transfused: none Tourniquet time (min): 0 Procedure in detail: The patient was seen in the pre-operative area, where the patient identified the left knee as the operative site and this was marked with my initials. The patient received pre-operative antibiotics, and was taken to the operating room and placed on the operative table in the supine position. After satisfactory anesthesia, a multimedia developer out was performed. The left leg was encircled with a tourniquet about the proximal thigh, and the leg was prepared from the toes to the tourniquet with ChloroPrep in the usual fashion and draped through sterile drapes. A tourniquet was not used because of the patient's prior history of a PE. The knee was approached through an approximately 18 cm incision centered over the patella and carried into the knee through a medial parapatellar arthrotomy. A portion of the medial and lateral meniscus was resected. Soft tissue was carefully mobilized around the patella the patella was measured with a caliper. Bone was resected from the patella and the patellar height was reconstituted with up an appropriate sized patellar component. A cover was then placed on the patella. A small amount of additional medial and lateral meniscus was resected. The distal femur was cut at 5?. A [+2] cut was used. It looked like an appropriate distal femoral cut and the cut was made without difficulty. An extramedullary guide was used for the tibial cut. 10 mm was resected off the least affected side.The tibia was prepared. The rotation was assessed. The patient was placed in extension residual medial and lateral meniscus as well as any residual bone was carefully resected. [No] additional tibia was resected. Hemostasis was achieved especially posteriorly. Additional local was injected into the posterior capsule. The extension gap was assessed and additional releases for gap balancing were performed as necessary. It was checked with the gap gear coding machine operator. The femoral component trial was placed and the notch was finished. The rotation was assessed and the appropriate size femoral guide was placed on the distal femur and finishing cuts were made. There was no evidence of notching. The anterior, posterior and chamfer cuts were then made. The posterior osteophytes and soft tissues were then removed. The posterior capsule was injected with part of a mixture of 60 ml 0.25% Marcaine mixed with 20 ml Exparel for post operative pain control. The remainder of this mixture was injected into the capsule and subcutaneous tissues during cement curing. The tibial and femoral components were then placed and the knee placed through a range of motion. Range of motion was [0-130], with good stability throughout the range. The trials were then removed, and the tibia was finished. The bone was prepared with pulsatile lavage, and dried with a sponge. Cement was applied and the final prosthetics placed. Excess cement was removed during and after cement curing. After confirming there was no extruded cement posteriorly, the final tibial insert was placed. The knee was copiously irrigated and the tourniquet deflated. Hemostasis was obtained with the [[employer] system]. The capsule was closed with interrupted nonabsorbable suture. The subcutaneous layer was closed with barbed sutures, and the skin with a running 3-0 V-Lock suture and Surgical glue. A silas dressing was applied and the patient was taken to recovery having tolerated the procedure well. Complications: none Post-operative Condition: stable Disposition: Acute Care Plan for aftercare: The patient will be maintained on a standard total knee replacement protocol with weight bearing as tolerated. The patient will receive Xarelto and sequential compression devices for DVT prophylaxis. The patient will be discharged home when safe for the home environment.
[2022-05-19] MEDS: CEFAZOLIN 2 GM/100 ML PREMIX 100 ML IV ×2 (08:00→16:32)
--- NOTE | 2022-05-19 08:00 | DI.RAD.S_ITS ---
PROCEDURE: XR KNEE LT 1TO2V INDICATIONS: TKA TECHNIQUE: 2 view(s) of the knee acquired. COMPARISON: [facility], CR, XR KNEE RT 3V, 12/18/2019, 11:49. FINDINGS: Bones: Patient is status post knee joint arthroplasty. Hardware components are in expected positions. Visualized bony structures are intact. Soft tissues: Overlying postoperative changes are noted. IMPRESSION: Expected immediate postoperative appearance, status post total left knee arthroplasty. Dictated by: Nestor Holder M.D. on 05/19/2022 at 11:23 Approved by: Nestor Holder M.D. on 05/19/2022 at 11:23
--- NOTE | 2022-05-19 08:29 | SUR.OPER ---
Supine on padded OR bed. Pillow under head, arms secured on padded armboards <90 degree abduction. Safety belt across torso. Non-operative leg secured with tape over blanket over lower leg. Operative leg secured in [employer] positioner. Foam padded brace at thigh of operative leg. Pt positioned per direction and supervision of Dr Strickland.
[2022-05-19] MEDS: BUPIVACAINE LIPOSOME 266 MG/20 ML VIAL INJ (08:37)
[2022-05-19] MEDS: BUPIVACAINE 0.25% (PF) 60 ML, EPINEPHrine 0.3 MG INJ (08:38)
[2022-05-19] MEDS: SODIUM CHLORIDE IRRIG SOLUTION 250 ML, POVIDONE-IODINE SPONGE STICKS 1 APPLIC IRR (09:55)
[2022-05-19] MEDS: LACTATED RINGERS 1,000 ML 100 ML IV ×2 (11:00→20:29)
[2022-05-19] MEDS: OXYCODONE IR 10 MG TABLET PO ×2 (12:35→18:47)
--- NOTE | 2022-05-19 14:00 | PT.IIE ---
Current Diagnoses Bilateral primary osteoarthritis of knee (05/19/22) Surgery Performed Operation Date: 05/19/22 07:45 Actual Procedures p Total Knee Arthroplasty(Left) - Liudmila Strickland MD Surgical History (Last Updated 05/12/22 @ 13:06 by Anita Bermudez, RN) History of hip surgery History of total left hip replacement (12/13/17) Hx of abdominal surgery Hx of hand surgery Hx of tooth extraction Status post cataract extraction of both eyes with insertion of intraocular lens Status post complete hysterectomy Status post surgery of both feet Medical History (Last Updated 05/12/22 @ 13:44 by Anita Bermudez, DEEPAK) Anesthesia complication Anxiety Arthritis Depression (emotion) Hearing loss HTN (hypertension) Hx of cor pulmonale Hypothyroid Irritable bowel syndrome (IBS) Pulmonary embolism Seasonal allergies UTI (urinary tract infection) (05/07/22) Physical Therapy Inpatient Evaluation/Re-Eval M1 PT/OT-IP Prior Functional Status Start: 05/19/22 15:13 Freq: NEEDED Status: Active Protocol: Document 05/19/22 14:00 AB (Rec: 05/19/22 15:26 AB [email or web address]) Medical Review Prior Functional Status Medical History Reviewed Yes Communication able to make needs known Mobility and Gait pt stated that she is independent with all mobilities and ambulation withotu AD Social History Household Members none Living Arrangements House Number of Floors (Floors) One Floor Number of Stairs To Enter/Railing? 3 steps to enter with B rails Home Equipment Front Wheel Walker,Straight Cane,Bedside Commode,Hand Held Shower,Grab Bars In Shower Additional Social History Comment pt has a walk- in tub shower pt's friend/neighor that lives across the street from her will stay with her for ~3 days to assist and then will come in the morning to help after that M2 PT-IP Current Condition Start: 05/19/22 15:13 Freq: NEEDED Status: Active Protocol: Document 05/19/22 14:00 AB (Rec: 05/19/22 15:26 AB [email or web address]) Physical Therapy Current Condition Current Condition Evaluation Date 05/19/22 Treatment Diagnosis s/p L TKA; difficulty in walking Onset Date 05/19/22 M3 PT-IP Subjective Start: 05/19/22 15:13 Freq: NEEDED Status: Active Protocol: Document 05/19/22 14:00 AB (Rec: 05/19/22 15:26 [email or web address]) Subjective Physical Therapy Visit Type Type Initial Evaluation Visit Start Time 14:00 Visit Stop Time 14:33 Total Visit Minutes 33 Number of BURR PICKER Visits 0 Physical Therapy Visit Comments Patient Comments agreeable to do PT Therapy Pain Assessment Pain When Pain Assessed At Rest Pain Present Pain Present Pain Reported Location Left Knee Intensity 5 Scale Used Numeric (0 - 10) Pain Management Techniques Apply Cold,Distraction, Modification of Treatment,Re- positioning,Timing of Activity with Medications M4 PT-IP Mobility and Gait Start: 05/19/22 15:13 Freq: NEEDED Status: Active Protocol: Document 05/19/22 14:00 AB (Rec: 05/19/22 15:26 [email or web address]) PT-Bed Mobility Assessment Sit to Supine Sit to Supine Standby Assistance PT-Transfer Assessment Sit to and From Stand Sit to and from Stand Minimal Assistance,1 Person Assistance,Use of Upper Extremities Equipment Transfer Assistive Device Gait Belt,Front Wheeled Walker Orthotic/Prosthetic Devices or Brace: No Comments Mobility Comments pt sitting on EOB. agreed to do PT. completed sit to stand min A and ambulated in room using FWW min A ~ 25 ft. pt requested to go back to bed. completed sit to supine SBA and cues. positioned pt in bed . call light and table placed within reach. Gait Assessment Gait Gait Assistance Required: Minimum Assistance Distance (Feet) 25 Able to Maintain Weight Bearing Status Yes During Gait Assistive Devices Assistive Device Gait Belt,Front Wheeled Walker Orthotic/Prosthetic Devices or Brace: No Gait Deviations General Gait Pattern Antalgic,Decreased Stride Length,Decreased Feet Clearance,Step-to Gait Factors Limiting Gait Function Factors Limiting Gait Function Decreased Activity Tolerance, Decreased Strength,Limited Range of Motion,Pain,Poor Balance,Poor Safety Awareness PT-Balance Assessment Sitting Balance and Reactions Static Sitting Balance Ability Normal Dynamic Sitting Balance Ability Good Standing Balance and Reactions Static Standing Balance Ability Fair Dynamic Standing Balance Ability Fair Device Used FWW M5 PT-IP Objective Assessments Start: 05/19/22 15:13 Freq: NEEDED Status: Active Protocol: Document 05/19/22 14:00 AB (Rec: 05/19/22 15:26 [email or web address]) Orientation Orientation/Cognition Level of Alertness Alert Orientation Name,Place,Situation Language Function Ability Hard of Hearing Safety Awareness Decreased Safety Awareness Memory Description No Deficits Noted Gross Range of Motion Lower Extremity ROM Assessment Left Impaired Impairments L knee flexion: ~ 70 deg Strength Lower Extremity Strength Assessment Left Impaired Hip 4-/5 Knee 4-/5 Coordination Assessment Gross Coordination Gross Coordination WNL Sensation Assessment Sensation Gross Sensation WNL Muscle Tone Muscle Tone WNL Yes M6 PT-IP Treatment Start: 05/19/22 15:13 Freq: NEEDED Status: Active Protocol: Document 05/19/22 14:00 AB (Rec: 05/19/22 15:26 AB [id number]) Physical Therapy Treatment Education Education Provided Precautions,Weight Bearing Status,Post-Op Packet,Safety M7 PT-IP Assessment and Plan Start: 05/19/22 15:13 Freq: NEEDED Status: Active Protocol: Document 05/19/22 14:00 AB (Rec: 05/19/22 15:26 AB [email or web address]) PT Summary Assessment and Plan Potential Rehabilitation Potential Good Status of Condition at Evaluation Evolving Summary Impairments Pain,ROM,Strength,Balance, Coordination,Sensation,Tone, Cognition,Bed Mobility, Transfers,Gait,Activity Tolerance Assessment Summary Pt requiring min A with mobility using FWW. pt plans to go home and her friend will assist her at home. pt's friend will be staying in for the night here in the hospital and agreed to do caregiver training tomorrow whenever appropriate. will continue to assess progress. Goals Bed Mobility Goal Independent Transfer Goal Independent,Front Wheeled Walker Gait Goal Independent,Front Wheel Walker Gait Distance 200 Other Goals up/down 3 steps B rail SBA Days to Meet Goals 5 Frequency of Treatment Frequency Of Treatment Twice a Day Treatment Plan Physical Therapy Treatment Plan Bed Mobility Training,Transfer Training,Gait Training, Therapeutic Exercise,Balance Retraining,Post Op Education, Discharge Planning,Hot or Cold Pack,Neuromuscular Re-ed, Coordination Retraining,Manual Therapy Weight Bearing Status Weight Bearing Status Weight Bear as Tolerated Allowed Weight Bearing Amount (enter % LLE WBAT or #) (%) Recommendations To Nursing Amount of Assist Needed 1 Person Assist Discharge Recommendations PT Discharge Recommendations Home with Assistance, Outpatient PT Transportation Needs at Discharge Private Vehicle
[2022-05-19] MEDS: ACETAMINOPHEN 325 MG TABLET 650 MG PO (16:33)
[2022-05-20] MEDS: ACETAMINOPHEN 325 MG TABLET 650 MG PO ×2 (00:05→05:16)
[2022-05-20] MEDS: CEFAZOLIN 2 GM/100 ML PREMIX 100 ML IV (00:06)
[2022-05-20 00:38] VITALS: BP 129/80; PULSE 93; RESP 16; TEMP 37; O2SAT 97
[2022-05-20] MEDS: LEVOTHYROXINE 75 MCG TABLET PO (05:16)
[2022-05-20 05:20] LABS: Hematocrit 33.3 % (36-46); Hemoglobin 11.3 g/dL (12.0-16.0)
--- NOTE | 2022-05-20 08:04 | P.DS_ITS ---
History of Present Illness History of Present Illness Date Patient Seen: 05/20/22 Time Patient Seen: 08:04 Chief complaint: Left TKA Narrative: Patient is awake sitting up in bed with her friend at bedside. She states her pain has been well controlled overnight the she did have to get a new IV. She is looking forward to working with physical therapy and going home today. Discharge Providers Provider Discharge Date: 05/20/22 Consults: 05/19/22 06:38 Consult to Anesthesiology Routine Comment: Consulting Provider: Anesthesiologist Reason for consultation: Regional block for post operative pain control 05/19/22 11:16 Consult to Discharge Planning Routine Comment: Consult to Physical Therapy Evaluate & Treat Comment: Physician Instructions: postop TKA protocol Discharge provider: Cee Buitrago PA-C Summary Hospital Course Discharge Diagnosis: Status post left TKA Hospital Course: Operative Date/Time/Diagnoses Date of procedure: 05/19/22 Time of procedure: 07:43 Pre-op diagnosis: left knee OA Post-op diagnosis: same Procedure & Clinicians Procedure: Left total knee arthroplasty Same procedure as scheduled: Yes Indications: The patient has had progressively worsening left knee pain with radiographic changes consistent with arthritis. Non-operative management has failed and the patient has requested total knee replacement. The risks, benefits and alt ernatives to surgery were discussed with the patient prior to proceeding. Risks discussed included, but were not limited to, failure to relieve pain, stiffness, infection, nerve damage, deep venous thrombosis, pulmonary embolism, stroke, coma, heart attack, permanent paralysis and , as well as the potential need for eventual revision of the prosthetic.? Surgeon: Liudmila Strickland Candy Starch Mold Printer: Cee Buitrago Anesthesia Type: General and Spinal Operative Notes Findings: Severe left knee OA Closure Type: primary Specimen(s): none sent Prosthetic devices, grafts, tissues, transplants, or devices: Journey BCS 2 size femur 6, size 4 tibia, +9 poly, 35 mm patella Estimated Blood Loss (mL): 250 Blood products transfused: none Tourniquet time (min): 0 Status at Discharge Cognitive/behavioral status at discharge: oriented Overall status at discharge: patient is progressing back to baseline Exam Vital Signs (past 8 hours): - 05/20/22 00:38 Temperature 98.6 F Pulse Rate 93 H Respiratory Rate 16 Blood Pressure 129/80 Pulse Oximetry 97 Oxygen Flow Rate 0 Oxygen Delivery Method Room Air Oxygen Flow Rate 0 Narrative Exam Narrative: Awake, alert, and oriented. Intraoperative silas dressing completely saturated with blood. New silas dressing applied. Moderate bruising and swelling about the incision. BLADE bandage intact. Slightly decreased sensation bilateral lower extremities, longstanding. Strength 5/5 to bilateral lower extremities. Bilateral calves soft, compressible, nontender with no palpable cords or masses. 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 Plan of Treatment: Discharge to home once safe and cleared by physical therapy. Continue with outpatient physical therapy and home exercise program. Discharge Plan Discharge Plan Patient Disposition: Home Provider Discharge Comment: Discharge once safe and cleared by physical therapy Discharge orders & Medications Discharge Orders: Discharge (Order); Ordered 05/20/22 Ordered By: Cee Buitrago Prescriptions: New oxycodone 5 mg Tablet 5 mg PO Q4-6H PRN (Reason: Pain, Moderate (4-6)) Qty: 40 0RF Continued Xarelto 20 mg tablet 20 mg PO DAILY Label Comments: TK 1 T PO QD levothyroxine 75 mcg tablet 75 mcg PO DAILY Label Comments: TK 1 T PO D alprazolam [Xanax] 0.25 mg Tablet 0.25 mg PO DAILY PRN (Reason: Anxiety) fluticasone propionate [Flonase Allergy Relief] 50 mcg/actuation [place],Suspension 1 spray INTRANASAL BEDTIME acetaminophen 325 mg Tablet 650 mg PO DAILY PRN (Reason: Pain (Scale Score 4-6)) Qty: 60 0RF magnesium 200 mg Tablet 400 mg PO DAILY Follow up/Referrals: Liudmila Strickland MD [Physician] - As previously scheduled Diet/Activity/Treatments Diet: Diet as Tolerated Activity: Weight bearing as tolerated Cold/Heat Therapy: Ice to knee multiple times per day Skin/Wound/Dressing Care Report to your healthcare provider any signs of infection, such as:: chills, fever, night sweats, unusual drainage and unusual redness Dressing: You may shower. Keep dressing clean, dry, and intact until 2 week follow up appointment. Battery will shut off after about a week, you may cut off the cord, but keep the dressing in place. If dressing becomes saturated from the inside or wet from the outside please contact our office for dressing change. Visit Report/Discharge Packet Instructions: DI for Knee Replacement Stand Alone Forms: Patient Portal/API, Stroke Signs & Symptoms, Surgery Discharge Discharge Data Attending Provider: Liudmila Strickland Quality VTE Deep Vein Thrombosis/Pulmonary Embolism Present on Admission: No
[2022-05-20 08:09] VITALS: BP 107/69; PULSE 96; RESP 16; TEMP 37; O2SAT 99
[2022-05-20] MEDS: MAGNESIUM OXIDE 400 MG TABLET PO (08:11)
[2022-05-20] MEDS: RIVAROXABAN 10 MG TABLET 20 MG PO (08:11)
--- NOTE | 2022-05-20 10:44 | PT.IPTN ---
Current Diagnoses Bilateral primary osteoarthritis of knee (05/19/22) Surgery Performed Operation Date: 05/19/22 07:45 Actual Procedures p Total Knee Arthroplasty(Left) - Liudmila Strickland MD Physical Therapy Treatment Note M2 PT-IP Current Condition Start: 05/19/22 15:13 Freq: NEEDED Status: Discharge Protocol: Document 05/19/22 14:00 AB (Rec: 05/19/22 15:26 AB [email or web address]) Physical Therapy Current Condition Current Condition Evaluation Date 05/19/22 Treatment Diagnosis s/p L TKA; difficulty in walking Onset Date 05/19/22 M3 PT-IP Subjective Start: 05/19/22 15:13 Freq: NEEDED Status: Discharge Protocol: Document 05/20/22 10:44 AB (Rec: 05/20/22 13:34 AB [email or web address]) Subjective Physical Therapy Visit Type Type Treatment Note Visit Start Time 10:44 Visit Stop Time 11:10 Total Visit Minutes 26 Number of BANKING [place] Visits 0 Physical Therapy Visit Comments Patient Comments agreeable to do PT Therapy Pain Assessment Pain When Pain Assessed At Rest Pain Present Pain Present Pain Reported Location Left Knee Intensity 5 Scale Used 6/10 with mobility M4 PT-IP Mobility and Gait Start: 05/19/22 15:13 Freq: NEEDED Status: Discharge Protocol: Document 05/20/22 10:44 AB (Rec: 05/20/22 13:34 AB [email or web address]) PT-Bed Mobility Assessment Supine to Sit Supine to Sit Standby Assistance PT-Transfer Assessment Sit to and From Stand Sit to and from Stand Standby Assistance,Contact Guard Assistance,1 Person Assistance,Use of Upper Extremities Equipment Transfer Assistive Device Gait Belt,Front Wheeled Walker Orthotic/Prosthetic Devices or Brace: No Transfers Transfer Destination Chair Transfer Technique ambulated Transfer Ability Level of Assist Standby Assistance,Contact Guard Assistance,1 Person Assistance,Use of Upper Extremities Comments Mobility Comments pt completed supine to sit SBA . able to sit on EOB SBA. caregiver training conducted. educated caregiver on how to use safety belt and how to assist pt . caregiver was able to put safety belt on pt and assisted pt wit sit to stand ambulation using FWW to the chair CGA. educated pt and caregiver regarding stair climbing technique. pt completed sit to stand from wilbert chair SBA and ambulated using FWW ~ 125 to the stairs SBA to CGA. completed up/down steps using B rails SBA to CGA. caregiver was able to assist pt safely. pt ambulated back to her room SBA using FWW and sat on chair. positioned on the chair. call light and table placed within reach. Gait Assessment Gait Gait Assistance Required: Standby Assistance,Contact Guard Assist Distance (Feet) 125 Able to Maintain Weight Bearing Status Yes During Gait Assistive Devices Assistive Device Gait Belt,Front Wheeled Walker Orthotic/Prosthetic Devices or Brace: No Gait Deviations General Gait Pattern Decreased Stride Length, Decreased Feet Clearance Factors Limiting Gait Function Factors Limiting Gait Function Decreased Activity Tolerance, Decreased Strength,Limited Range of Motion,Pain,Poor Balance,Poor Safety Awareness Stair Climbing Assessment Evaluation Level of Assist On Stairs Standby Assistance,Contact Guard Assistance Devices Stair Climbing Assistive Devices Left Railing,Right Railing Technique/Endurance Stair Climbing Direction Ascend and Descend Stair Climbing Technique Step to Step Number of Steps Climbed 3 Stair Climbing Set # Repetitions (reps) 1 M5 PT-IP Objective Assessments Start: 05/19/22 15:13 Freq: NEEDED Status: Discharge Protocol: Document 05/19/22 14:00 AB (Rec: 05/19/22 15:26 AB [email or web address]) Orientation Orientation/Cognition Level of Alertness Alert Orientation Name,Place,Situation Language Function Ability Hard of Hearing Safety Awareness Decreased Safety Awareness Memory Description No Deficits Noted Gross Range of Motion Lower Extremity ROM Assessment Left Impaired Impairments L knee flexion: ~ 70 deg Strength Lower Extremity Strength Assessment Left Impaired Hip 4-/5 Knee 4-/5 Coordination Assessment Gross Coordination Gross Coordination WNL Sensation Assessment Sensation Gross Sensation WNL Muscle Tone Muscle Tone WNL Yes M6 PT-IP Treatment Start: 05/19/22 15:13 Freq: NEEDED Status: Discharge Protocol: Document 05/20/22 10:44 AB (Rec: 05/20/22 13:34 AB [email or web address]) Physical Therapy Treatment Education Education Provided Safety M7 PT-IP Assessment and Plan Start: 05/19/22 15:13 Freq: NEEDED Status: Discharge Protocol: Document 05/20/22 10:44 AB (Rec: 05/20/22 13:34 AB [email or web address]) PT Summary Assessment and Plan Potential Rehabilitation Potential Good Summary Impairments Pain,ROM,Strength,Balance, Coordination,Sensation,Tone, Cognition,Bed Mobility, Transfers,Gait,Activity Tolerance Progress Towards Goals Progressing Toward Goals Assessment Summary caregiver training conducted and caregiver was able to assist pt safely. pt plans to go home today. Goals Bed Mobility Goal Independent Transfer Goal Independent,Front Wheeled Walker Gait Goal Independent,Front Wheel Walker Gait Distance 200 Other Goals up/down 3 steps B rail SBA Days to Meet Goals 5 Frequency of Treatment Frequency Of Treatment Twice a Day Treatment Plan Physical Therapy Treatment Plan Bed Mobility Training,Transfer Training,Gait Training, Therapeutic Exercise,Balance Retraining,Post Op Education, Discharge Planning,Hot or Cold Pack,Neuromuscular Re-ed, Coordination Retraining,Manual Therapy Weight Bearing Status Weight Bearing Status Weight Bear as Tolerated Allowed Weight Bearing Amount (enter % LLE WBAT or #) (%) Recommendations To Nursing Amount of Assist Needed 1 Person Assist Discharge Recommendations PT Discharge Recommendations Home with Assistance, Outpatient PT Transportation Needs at Discharge Private Vehicle
[2022-05-20] MEDS: OXYCODONE IR 10 MG TABLET PO (11:01)
--- NOTE | 2022-05-20 12:59 | PC.NURSE ---
Pt had minimal assistance to dress with the help of friend. 10 mg of Oxycodone was administered right after PT for 09/12, effective. Reveiwed d/c paperwork such as knee precautions, stroke s/s, s/s of infection and wound care especially for the [employer] drain, and new medication education for oxycodone that they will p/u @ the pharmacy in [place] later today. No other questions or conerns at this time. Pt left unit via wheelchair accompanied by INFORMATION SECURITY and friend with all belongings to POV @ [phone].
== END 2022-05-20 12:55 | disposition home or self-care (01) ==
LOC: OR 05:40 → AC 05:40
PROVIDERS: Referring Provider Orthopaedic Surgery; Visit Provider Orthopaedic Surgery
PROC: 0SRD0JZ Replacement of Left Knee Joint with Synthetic Substitute, Open Approach (ICD-10-PCS; CPT 27447; principal; 2022-05-19 07:45)
DX: M17.12 Unilateral primary osteoarthritis, left knee (principal); I10 Essential (primary) hypertension
CPT/HCPCS: 27447; 36415; 73560; 85014; 85018; 87635; 97161; 97530; C1776; C9803; C1713; C9290; J0171; J0690; J1100; J2250; J2405; J2704; J3010

== ENCOUNTER → 2023-06-11 16:29 | Outpatient (CLI) | payer MEDICARE, BC, SELFPAY ==
[2022-05-19 06:19] VITALS: BMI 29.5
[2023-06-11 17:11] LABS: Appearance Urine UA CLEAR; Bilirubin Urine UA NEGATIVE (NEGATIVE); Color Urine UA YELLOW; Glucose Urine UA NEGATIVE (Negative); Ketones Urine UA NEGATIVE (NEGATIVE); Leukocyte Esterase Urine UA TRACE (NEGATIVE); Nitrite Urine UA NEGATIVE (Negative); Occult Blood Urine UA NEGATIVE (Negative); Protein Urine UA NEGATIVE (Negative); Urobilinogen Urine UA 0.2 E.U./dL (0.2)
[2023-06-11 17:20] LABS: Bacteria Urine Occasional (0-1); Culture Indicated Urine Specimen Cultured; Mucus Urine 1+ (Negative); RBC Urine None Seen (0-5/HPF); Squamous Epithelial Cell Urine 1-5 /HPF (0-5/HPF); Urine Volume 10mL (spun); WBC Urine 1-5/HPF (0-5/HPF)
[2023-06-11 17:38] LABS: Add Manual Diff / Slide Review NO; Basophils Absolute Auto 100 /uL (0-100); Basophils Percent Auto 0.9 % (0-2); Eosinophils Absolute Auto 600 /uL (0-450); Eosinophils Percent Auto 5.9 % (2-4); Hematocrit 37.6 % (36-46); Hemoglobin 12.9 g/dL (12.0-16.0); Lymphocytes Absolute Auto 2500 /uL (1100-4500); Lymphocytes Percent Auto 25.7 % (25-40); Mean Corpuscular HGB Conc 34.3 % (30-36); Mean Corpuscular Hemoglobin 31.7 PG (26-34); Mean Corpuscular Volume 92.3 fL (80-100); Monocytes Absolute Auto 600 /uL (0-900); Monocytes Percent Auto 6.2 % (3-14); Neutrophils Absolute Auto 5900 /uL (1500-7000); Neutrophils Percent Auto 61.3 % (50-75); Platelet Count 269 X10^3/uL (150-400); Red Blood Cell Count 4.07 X10^6/uL (4.0-5.2); Red Cell Distribution Width 13.4 % (11.6-14.8); White Blood Cell Count 9.7 X10^3/uL (4.5-11.0)
[2023-06-11 17:42] LABS: Hemoglobin A1C% w Est Avg Glu 5.4 % (4.0-6.0)
[2023-06-11 17:45] LABS: INR 1.2 (0.9-1.3); Prothrombin Time 13.8 SECONDS (9.4-12.5)
[2023-06-11 17:48] LABS: PTT Partial Thromboplastin Tim 41 SECONDS (25.1-36.5)
[2023-06-11 17:52] LABS: Blood Urea Nitrogen 18 mg/dL (7-17); Carbon Dioxide 29 mmol/L (22-32); Chloride 109 mmol/L (98-107); Estimated Glomerular Filt Rate > 60 mL/min (>60); Glucose 99 mg/dL (80-110); HEMOLYSIS < 15 (0-50); Sodium 139 mmol/L (137-145)
== END ==
PROVIDERS: PCP Physician Assistant; Referring Provider Orthopaedic Surgery; Visit Provider Orthopaedic Surgery
DX: Z01.818 Encounter for other preprocedural examination (principal); R73.9 Hyperglycemia, unspecified; Z51.81 Encounter for therapeutic drug level monitoring; Z01.812 Encounter for preprocedural laboratory examination; N39.0 Urinary tract infection, site not specified
CPT/HCPCS: 36415; 80048; 81001; 83036; 85025; 85610; 85730; 87086; 93005; 93010

== ENCOUNTER 2023-06-22 08:38 | Day surgery (SDC) | payer MEDICARE, BC, SELFPAY ==
[2022-05-19 06:19] VITALS: BMI 29.5
[2023-06-17 08:33] VITALS: BMI 32.5
[2023-06-22] VITALS (15 sets, daily range): BP systolic 125–162; BP diastolic 75–104; PULSE 88–110; RESP 8–20; TEMP 36.1–36.8; O2SAT 93–97; BMI 33.5
--- NOTE | 2023-06-22 06:00 | DI.RAD.S_ITS ---
PROCEDURE: XR KNEE RT 1TO2V INDICATIONS: TKA TECHNIQUE: 2 view(s) of the knee acquired. COMPARISON: [facility], CR, XR KNEE LT 1TO2V, 05/19/2022, 10:46. FINDINGS: Bones: Patient is status post knee joint arthroplasty. Hardware components are in expected positions. Visualized bony structures are intact. Soft tissues: Overlying postoperative changes are noted. IMPRESSION: Expected post-operative appearance of interval right total knee arthroplasty. Dictated by: Tommy Davila M.D. on 06/22/2023 at 16:10 Approved by: Tommy Davila M.D. on 06/22/2023 at 16:10
[2023-06-22] MEDS: ACETAMINOPHEN 325 MG TABLET 975 MG PO (09:32)
[2023-06-22] MEDS: LACTATED RINGERS 1,000 ML 42 ML IV ×2 (09:32→13:01)
[2023-06-22] MEDS: VANCOMYCIN 1,000 MG/200 ML PIGGYBACK 200 MG IV (09:58)
--- NOTE | 2023-06-22 10:37 | P.OP_ITS ---
Operative Date/Time/Diagnoses Date of procedure: 06/22/23 Time of procedure: 11:30 Pre-op diagnosis: right knee OA Post-op diagnosis: same Procedure & Clinicians Procedure: Right total knee arthroplasty Same procedure as scheduled: Yes Indications: The patient has had progressively worsening right knee pain with radiographic changes consistent with arthritis. Non-operative management has failed and the patient has requested total knee replacement. The risks, benefits and alternatives to surgery were discussed with the patient prior to proceeding. Risks discussed included, but were not limited to, failure to relieve pain, stiffness, infection, nerve damage, deep venous thrombosis, pulmonary embolism, stroke, coma, heart attack, permanent paralysis and , as well as the potential need for eventual revision of the prosthetic. Surgeon: Liudmila Strickland Steel Pan Form Placing Supervisor: Jason Goodman Anesthesia Type: Spinal and Sedation Operative Notes Findings: Severe right hip OA, adequate bone, adequate stability Closure Type: primary Specimen(s): none sent Prosthetic devices, grafts, tissues, transplants, or devices: Strickland and nephew R3 52, neutral poly liner,one 6.5 mm screw, size 5 standard offset anthology, 36 x -3 cobalt chrome head Estimated Blood Loss (mL): 250 Blood products transfused: none Procedure in detail: The patient was seen in the pre-operative area, where the patient identified the right hip as the operative site and this was marked with my initials. The patient received pre-operative antibiotics and was taken to the operating room and placed on the operative table in the left lateral decubitus position after satisfactory anesthesia. A multimedia developer out was performed. The right leg was prepared from the ankle to the iliac crest with ChloroPrep in the usual fashion and draped through sterile drapes. A PA was used during the procedure and was essential for intraoperative retraction and safe implantation of the components. The hip was approached through an approximately 20 cm incision centered over the greater trochanter and curving gently posteriorly as it went proximally. This was carried sharply to the fascia estefany, which was divided and retracted with a self retaining retractor. The trochanteric bursa was excised with care being taken to avoid the sciatic nerve, which was identified and protected throughout the case. The short external rotators were incised and the capsulomuscular flap was raised and tagged for later repair. The hip was dislocated, and a femoral neck osteotomy performed approximately 15 mm above the lesser trochanter. Retractors were placed around the femur. The canal was opened with a box cutting osteotome, followed by a T handled reamer and a lateralizing reamer. The chili pepper broach was then used, followed by sequential broaching until there was good stability of the broach in the femur. Retractors were placed to expose the acetabulum. The labrum and central soft tissues were removed. Reaming was performed initially going up in 2 mm increments, then 1 mm increments until good bite was obtained with an odd sized reamer. The cup 1 mm larger than the last reamer was then inserted using the appropriate anteversion guides. It was further stabilized with a single screw. A trial neutral liner was placed. The broach was placed in the canal. A trial head and neck were then placed and the hip relocated and checked for leg length and stability. An intraoperative film confirmed the component position and no evidence of fracture. The patient was stable in the position of sleep, of squatting, and could be put through a range of motion with 45 degrees internal rotation without dislocation. At 90 degrees flexion, internal rotation to 70? was possible before dislocation. This was felt to be satisfactory and the appropriate components were opened, and the trials were removed. The acetabular liner was impacted into position. The final stem was then impacted into the prepared femoral canal. A brief Betadine soak was performed while trialing with head options. The hip was meticulously irrigated with normal saline. Finally the femoral head was impacted onto the stem. The acetabulum was cleared of all material and the hip relocated one final time. The capsulomuscular flap was then repaired to the greater trochanter though an awl hole using the tag sutures. The short external rotators were repaired with a nonabsorbable suture. The fascia estefany was closed with Vicryl. The subcutaneous layer was closed with barbed sutures and skin deion. A silas dressing was applied and the patient was taken to recovery having tolerated the procedure well. Complications: none Post-operative Condition: stable Disposition: Acute Care Plan for aftercare: The patient will be maintained on a standard total hip replacement protocol with weight bearing as tolerated and posterior hip precautions. The patient will receive Aspirin and sequential compression devices for DVT prophylaxis. The patient will be discharged home when safe for the home environment.
--- NOTE | 2023-06-22 10:37 | PM.PREOP ---
Pre-operative Note Interval Note History & Physical reviewed/Exam performed by Physician: Yes Changes to H&P: No
[2023-06-22] MEDS: CEFAZOLIN 2 GM/100 ML PREMIX 100 ML IV ×2 (11:42→21:58)
--- NOTE | 2023-06-22 12:15 | SUR.OPER ---
Supine on padded OR bed. Pillow under head, arms secured on padded armboards <90 degree abduction. Safety belt across torso. Non-operative leg secured with tape over blanket over lower leg. Operative leg secured in DeMayo/Alli/Nathe positioner. Foam padded brace at thigh of operative leg.
[2023-06-22] MEDS: BUPIVACAINE LIPOSOME 266 MG/20 ML VIAL INJ (13:03)
[2023-06-22] MEDS: BUPIVACAINE 0.25% (PF) 60 ML, EPINEPHrine 0.3 MG INJ (13:03)
[2023-06-22] MEDS: HYDROMORPHONE 1 MG INJ IV ×2 (14:39→14:45)
--- NOTE | 2023-06-22 14:42 | PM.OP.1 ---
Operative Date/Time/Diagnoses Date of procedure: 06/22/23 Time of procedure: 11:30 Pre-op diagnosis: Severe right knee OA Post-op diagnosis: same Procedure & Clinicians Procedure: Right total knee arthroplasty Same procedure as scheduled: Yes Indications: The patient has had progressively worsening right knee pain with radiographic changes consistent with arthritis. Non-operative management has failed and the patient has requested total knee replacement. The risks, benefits and alternatives to surgery were discussed with the patient prior to proceeding. Risks discussed included, but were not limited to, failure to relieve pain, stiffness, infection, nerve damage, deep venous thrombosis, pulmonary embolism, stroke, coma, heart attack, permanent paralysis and , as well as the potential need for eventual revision of the prosthetic. Surgeon: Liudmila Strickland Planning Supervisor: Jason Goodman Anesthesia Type: General and Spinal Operative Notes Findings: Severe right knee osteoarthritis, adequate stability, adequate bone Closure Type: primary Specimen(s): none sent Prosthetic devices, grafts, tissues, transplants, or devices: Strickland and nephfrancisco dias BC us to size 6 femur, size 5 tibia, +9 poly, 35 x 7-1/2 mm patella Estimated Blood Loss (mL): 250 Blood products transfused: none Tourniquet time (min): 89 Procedure in detail: The patient was seen in the pre-operative area, where the patient identified the right knee as the operative site and this was marked with my initials. The patient received pre-operative antibiotics, and was taken to the operating room and placed on the operative table in the supine position. After satisfactory anesthesia, a parakeet raiser out was performed. The right leg was encircled with a tourniquet about the proximal thigh, and the leg was prepared from the toes to the tourniquet with ChloroPrep in the usual fashion and draped through sterile drapes. The leg was elevated and exsanguinated with Eschmark bandage and the tourniquet inflated to [250] mmHg pressure. The knee was approached through an approximately 18 cm incision centered over the patella and carried into the knee through a medial parapatellar arthrotomy. Portion of the medial and lateral meniscus was resected. Soft tissue was carefully mobilized around the patella the patella was measured with a caliper. Bone was resected from the patella and the patellar height was reconstituted with up an appropriate sized patellar component. We did initially have problems with intraoperative hypertension and the tourniquet bled through. We deflated the tourniquet the tourniquet temporarily and then reinflated it when the blood pressure was better controlled. It was reinflated to 300 mmHg. Cover was then placed on the patella. A small amount of additional medial and lateral meniscus was resected. Pins were placed in the femur for robotic assisted navigation. The tibial cutting guide was pinned to the tibia in a way so that we could navigate the tibia but adjust for the optimum tibial cut. The knee was carefully mapped. We did a stress range of motion. Patient had a fairly tight knee. We attempted to optimize the plan for overall alignment and balance for range of motion. The [employer] robotic bur was used for the distal femoral cut. It looked like an appropriate distal femoral cut and the cut was made without difficulty. The appropriate size femoral guide was placed on the distal femur and finishing cuts were made. There was no evidence of notching. The anterior, posterior and chamfer cuts were then made. The posterior osteophytes and soft tissues were then removed. The posterior capsule was injected with part of a mixture of 60 ml 0.25% Marcaine mixed with 20 ml Exparel for post operative pain control. The remainder of this mixture was injected into the capsule and subcutaneous tissues during cement curing. The tibia was prepared using robotic assisted technology to carefully align the tibial component and optimize the cut. The patient was placed in extension residual medial and lateral meniscus as well as any residual bone was carefully resected. [No] additional tibia was resected. Hemostasis was achieved especially posteriorly. Additional local was injected into the posterior capsule.The femoral component was trial was placed and the notch was finished. Trial tibial and femoral components were then placed and the knee placed through a range of motion. Range of motion was [0-130], with good stability throughout the range. The trials were then removed, and the tibia was finished. The bone was prepared with pulsatile lavage, and dried with a sponge. Cement was applied and the final prosthetics placed. Excess cement was removed during and after cement curing. A brief Betadine soak was performed. After confirming there was no extruded cement posteriorly, the final tibial insert was placed. The knee was copiously irrigated and the tourniquet deflated. Hemostasis was obtained with the [Aquamantys system]. The capsule was closed with interrupted sutures. The subcutaneous layer was closed with barbed sutures, and the skin with a running 3-0 V-Lock suture and Surgical glue. An Aquacel Ag dressing was applied and the patient was taken to recovery having tolerated the procedure well. Complications: none Post-operative Condition: stable Disposition: Acute Care Plan for aftercare: The patient will be maintained on a standard total knee replacement protocol with weight bearing as tolerated. The patient will receive Xarelto starting and sequential compression devices for DVT prophylaxis. The patient will be discharged home when safe for the home environment.
[2023-06-22] MEDS: OXYCODONE IR 5 MG TABLET PO ×2 (14:48→20:10)
[2023-06-22] MEDS: LORazepam 2 MG/ML INJ 0.25 MG IV (14:53)
--- NOTE | 2023-06-22 15:18 | SUR.PHASEI ---
Loreto TALAVERA infomred of BP/HR. Pain controlled with patient dozing intermittently. Ok to transfer to floor.
--- NOTE | 2023-06-22 15:36 | SUR.PHASEI ---
Pt transferred to floor in bed by this RN with 1 belongings bag and bilat hearing aids in place. Report called to Arlene SOTELO and bedside handoff to Patrice SOTELO.
[2023-06-22] MEDS: LACTATED RINGERS 1,000 ML 100 ML IV (17:33)
--- NOTE | 2023-06-22 18:58 | PC.NURSE ---
Patient is a one person assist with walker to get out of bed. She voided in the bsc and used the bed davis today. She has ivf infusing. Dressing to r.knee is cdi with aquacel and violette wrap. She denies pain.
[2023-06-22] MEDS: DOCUSATE 100 MG CAPSULE PO (20:10)
[2023-06-22] MEDS: ACETAMINOPHEN 325 MG TABLET 650 MG PO (20:10)
[2023-06-23] VITALS: BP 152/78; PULSE 104; RESP 16; TEMP 36.4; O2SAT 96
[2023-06-23] MEDS: OXYCODONE IR 5 MG TABLET PO ×3 (04:07→09:08)
[2023-06-23] MEDS: ACETAMINOPHEN 325 MG TABLET 650 MG PO (04:08)
[2023-06-23] MEDS: LACTATED RINGERS 1,000 ML 100 ML IV (04:11)
[2023-06-23 05:11] VITALS: BP 115/62; PULSE 102; RESP 16; TEMP 36.5; O2SAT 94
[2023-06-23] MEDS: CEFAZOLIN 2 GM/100 ML PREMIX 100 ML IV (05:32)
[2023-06-23] MEDS: LEVOTHYROXINE 75 MCG TABLET PO (05:32)
[2023-06-23 05:55] LABS: Hematocrit 31.3 % (36-46); Hemoglobin 10.7 g/dL (12.0-16.0)
--- NOTE | 2023-06-23 08:15 | PM.DS.1 ---
History of Present Illness History of Present Illness Date Patient Seen: 06/23/23 Time Patient Seen: 08:16 Chief complaint: Right Total Knee Arthroplasty 06/21 Narrative: Operative Date/Time/Diagnoses Date of procedure: 06/22/23 Time of procedure: 11:30 Pre-op diagnosis: Severe right knee OA Post-op diagnosis: same Procedure & Clinicians Procedure: Right total knee arthroplasty Same procedure as scheduled: Yes Indications: The patient has had progressively worsening right knee pain with radiographic changes consistent with arthritis. Non-operative management has failed and the patient has requested total knee replacement. The risks, benefits and alternatives to surgery were discussed with the patient prior to proceeding. Risks discussed included, but were not limited to, failure to relieve pain, stiffness, infection, nerve damage, deep venous thrombosis, pulmonary embolism, stroke, coma, heart attack, permanent paralysis and , as well as the potential need for eventual revision of the prosthetic. Surgeon: Liudmila Strickland Supervisor Fertilizer Processing: Jason Goodman Anesthesia Type: General and Spinal Operative Notes Findings: Severe right knee osteoarthritis, adequate stability, adequate bone Closure Type: primary Specimen(s): none sent Prosthetic devices, grafts, tissues, transplants, or devices: Strickland and neph[employer] [facility] us to size 6 femur, size 5 tibia, +9 poly, 35 x 7-1/2 mm patella Estimated Blood Loss (mL): 250 Blood products transfused: none Tourniquet time (min): 89 Discharge Providers Provider Discharge Date: 06/23/23 Primary care physician: Teresa Hernandez PA-C Consults: 06/22/23 06:00 Consult to Anesthesiology Routine Comment: Consulting Provider: Anesthesiologist Reason for consultation: Regional block for post operative pain control 06/22/23 15:21 Consult to Discharge Planning Routine Comment: Consult to Occupational Therapy Evaluate & Treat Comment: Physician Instructions: Evaluate and treat Consult to Physical Therapy Evaluate & Treat Comment: Physician Instructions: postop TKA protocol Discharge provider: Brittney Pastor PA-C Summary Hospital Course Discharge Diagnosis: Right knee osteoarthritis, s/p right total knee arthroplasty Hospital Course: Ms Bundy's hospital course was unremarkable. On the morning of POD# 1, she was feeling well and wanted to go home. She was eating and voiding without difficulty and her pain was well-controlled with oral medication. She had not yet been evaluated by PT but was moving her knee without difficulty. She complained of distal quadriceps pain. Exam Vital Signs (past 8 hours): - 06/23/23 05:11 Temperature 97.7 F Pulse Rate 102 H Respiratory Rate 16 Blood Pressure 115/62 Pulse Oximetry 94 Oxygen Flow Rate 0 Oxygen Delivery Method Room Air Oxygen Flow Rate 0 Narrative Exam Narrative: 5/5 strength in hip flexors, quadriceps, hamstrings, DF, PF, EHL on right. Sensation to light touch intact throughout RLE, calf soft and compressible. BLADE wrap over Aquacel CDI. Objective Labs 06/23/23 04:55 Labs: Laboratory Results - last 24 hr 06/23/23 04:55 Hgb 10.7 L Hct 31.3 L PFSH Medical History UTI (urinary tract infection) (05/07/22) Anesthesia complication Hx of cor pulmonale Arthritis Pulmonary embolism Depression (emotion) Anxiety Hypothyroid Irritable bowel syndrome (IBS) Seasonal allergies Hearing loss HTN (hypertension) Surgical History (Updated 06/17/23 @ 08:40 by Anita Bermudez RN) History of total left knee replacement (05/19/22) Hx of abdominal surgery History of total left hip replacement (12/13/17) History of hip surgery Hx of hand surgery Status post surgery of both feet Status post complete hysterectomy Status post cataract extraction of both eyes with insertion of intraocular lens Hx of tooth extraction Social History household members: none Smoking Status: Former smoker alcohol intake: current Discharge Assessment & Plan Assessment and Plan Assessment: Right knee osteoarthritis, s/p right total knee arthroplasty Plan of Treatment: Discharge home after PT. Pt has postop meds at home. Xarelto at preop dose for VTE prophylaxis; can restart on 06/24/2023. Outpt PT, f/u in office in 2 weeks as scheduled. Discharge Plan Discharge Plan Patient Disposition: Home Provider Discharge Comment: Restart Xarelto 06/24/2023. Discharge orders & Medications Discharge Orders: Discharge (Order); Ordered 06/23/23 Ordered By: Brittney Pastor Prescriptions: Continued Xarelto 20 mg tablet 20 mg PO DAILY Patient Comments: TK 1 T PO QD levothyroxine 75 mcg tablet 75 mcg PO DAILY Patient Comments: TK 1 T PO D levalbuterol tartrate 45 mcg/actuation Hfa Aerosol Inhaler 1 puff INHALATION BEDTIME acetaminophen 325 mg tablet 650 mg PO DAILY PRN (Reason: Pain (Scale Score 4-6)) Rx Instructions: 1300mg in am and 650 pm. alprazolam [Xanax] 0.25 mg Tablet 0.25 mg PO DAILY PRN (Reason: Anxiety) fluticasone propionate [Flonase Allergy Relief] 50 mcg/actuation Clifford,Suspension 1 spray INTRANASAL BEDTIME PRN (Reason: Seasonal allergies) magnesium 200 mg Tablet 500 mg PO DAILY oxycodone 5 mg Tablet 5 mg PO Q4-6H PRN (Reason: Pain, Moderate (4-6)) Qty: 40 0RF Rx Instructions: post op med Follow up/Referrals: Teresa Hernandez PA-C [Primary Care Provider] - Liudmila Strickland MD [Physician] - 07/02/23 1:00 pm (Follow up w/ Chung Keller PA-C, at [facility] in [place].) Diet/Activity/Treatments Diet: Diet as Tolerated Activity: Walk frequently! Cold/Heat Therapy: Ice to knee as needed for pain. Skin/Wound/Dressing Care Report to your healthcare provider any signs of infection, such as:: chills, fever, night sweats, unusual drainage and unusual redness Dressing: May remove BLADE wrap and shower on 06/25/2023. Leave dressing in place until follow up in office. No bathing or otherwise soaking incision. Call the office if the dressing becomes saturated inside. Visit Report/Discharge Packet Instructions: DI for Knee Replacement, DI for Prescription Opioid Use Stand Alone Forms: Patient Portal/API, Surgery Discharge Discharge Data Primary Care Provider: Teresa Hernandez Attending Provider: Liudmila Strickland
[2023-06-23] MEDS: polyethylene glycoL 3350 17 GM POWD.PACK PO (09:08)
[2023-06-23] MEDS: MAGNESIUM OXIDE 400 MG TABLET PO (09:08)
--- NOTE | 2023-06-23 09:50 | PT.IIE ---
Current Diagnoses Bilateral primary osteoarthritis of knee (06/22/23) Surgery Performed Operation Date: 06/22/23 10:45 Actual Procedures p Total Knee Arthroplasty - Robot(Right) - Liudmila Strickland MD Surgical History (Last Updated 06/17/23 @ 08:40 by Anita Bermudez RN) History of hip surgery History of total left hip replacement (12/13/17) History of total left knee replacement (05/19/22) Hx of abdominal surgery Hx of hand surgery Hx of tooth extraction Status post cataract extraction of both eyes with insertion of intraocular lens Status post complete hysterectomy Status post surgery of both feet Medical History (Last Reviewed 05/20/22 @ 08:08 by Cee Buitrago PA-C) Anesthesia complication Anxiety Arthritis Depression (emotion) Hearing loss HTN (hypertension) Hx of cor pulmonale Hypothyroid Irritable bowel syndrome (IBS) Pulmonary embolism Seasonal allergies UTI (urinary tract infection) (05/07/22) Physical Therapy Inpatient Evaluation/Re-Eval M1 PT/OT-IP Prior Functional Status Start: 06/23/23 12:09 Freq: NEEDED Status: Active Protocol: Document 06/23/23 09:50 AB (Rec: 06/23/23 12:22 AB [id number]) Medical Review Prior Functional Status Medical History Reviewed Yes Diet/Fluid Consistency Regular Communication pt able to make needs known Mobility and Gait pt stated that she was independent with all mobilities and ambualtion without AD Activities of Daily Living and IADL's per OT notept I with all BADL and IADL including yard work Social History Household Members none Living Arrangements House Number of Floors (Floors) One Floor Number of Stairs To Enter/Railing? 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 friend/neighbor who will be staying with her to assist her as long as needed pt has a walk in tub shower M2 PT-IP Current Condition Start: 06/23/23 12:09 Freq: NEEDED Status: Active Protocol: Document 06/23/23 09:50 AB (Rec: 06/23/23 12:22 AB [id number]) Physical Therapy Current Condition Current Condition Evaluation Date 06/23/23 Treatment Diagnosis s/p R TKA; difficulty in walking Onset Date 06/22/23 M3 PT-IP Subjective Start: 06/23/23 12:09 Freq: NEEDED Status: Active Protocol: Document 06/23/23 09:50 AB (Rec: 06/23/23 12:22 [id number]) Subjective Physical Therapy Visit Type Type Initial Evaluation Visit Start Time 09:50 Visit Stop Time 10:30 Number of DAIRY PROCESSING SUPERVISOR Visits 0 Physical Therapy Visit Comments Patient Comments agreeable to do PT Therapy Pain Assessment Pain When Pain Assessed At Rest Pain Present Pain Present Pain Reported Location right knee Intensity 4 Scale Used Numeric (0 - 10) Pain Management Techniques Apply Cold,Distraction, Modification of Treatment,Re- positioning,Timing of Activity with Medications M4 PT-IP Mobility and Gait Start: 06/23/23 12:09 Freq: NEEDED Status: Active Protocol: Document 06/23/23 09:50 AB (Rec: 06/23/23 12:22 [id number]) PT-Bed Mobility Assessment Supine to Sit Supine to Sit Standby Assistance Sit to Supine Sit to Supine Standby Assistance PT-Transfer Assessment Sit to and From Stand Sit to and from Stand Standby Assistance,Contact Guard Assistance,1 Person Assistance,Use of Upper Extremities Equipment Transfer Assistive Device Gait Belt,Front Wheeled Walker Orthotic/Prosthetic Devices or Brace: No Transfers Transfer Destination Bed Transfer Technique ambulated Transfer Ability Level of Assist Standby Assistance,Contact Guard Assistance,1 Person Assistance,Use of Upper Extremities Comments Mobility Comments pt sitting on the chair and agreeable to do PT. obtained PLOF and home set up from pt. pt wanting to put her clothes on. able to manage clothing. completed sit to stand CGA with 2-3 attempts for sit to stand CGA. able to maintain standing using fWW for support while managing brief/pants. pt ambulated to EOB ~ 20 ft using FWW CGA. completed sit< >supine SBA. pt agreed to do stairs. educated on stair climbing. pt completed sit to stand from EOB SBA to CGA and ambulated in the hallway using FWW ~ 100 ft SBA to CGA. pt sat on w/c to rest. completed sit to stand from w/c CGA and completed up/down steps using B rails CGA. assisted pt back to her room. ambulated from w/c to the toilet using FWW SBA ~ 30 ft. call light placed next to pt and instructed to call for assistance when ready. informed NAC. pt without further concerns and stated that her friend will be able to assist her. Gait Assessment Gait Gait Assistance Required: Standby Assistance,Contact Guard Assist Distance (Feet) 100 Able to Maintain Weight Bearing Status Yes During Gait Assistive Devices Assistive Device Gait Belt,Front Wheeled Walker Orthotic/Prosthetic Devices or Brace: No Gait Deviations General Gait Pattern Antalgic,Ataxic,Decreased Feet Clearance Factors Limiting Gait Function Factors Limiting Gait Function Decreased Activity Tolerance, Decreased Strength,Limited Range of Motion,Pain,Poor Balance,Poor Safety Awareness Stair Climbing Assessment Evaluation Level of Assist On Stairs Contact Guard Assistance Devices Stair Climbing Assistive Devices Left Railing,Right Railing Technique/Endurance Stair Climbing Direction Ascend and Descend Stair Climbing Technique Step to Step Number of Steps Climbed 3 Query Text: Stair Climbing Set # Repetitions (reps) 1 PT-Balance Assessment Sitting Balance and Reactions Static Sitting Balance Ability Normal Dynamic Sitting Balance Ability Good Standing Balance and Reactions Static Standing Balance Ability Fair Dynamic Standing Balance Ability Fair Device Used FWW M5 PT-IP Objective Assessments Start: 06/23/23 12:09 Freq: NEEDED Status: Active Protocol: Document 06/23/23 09:50 AB (Rec: 06/23/23 12:22 AB [id number]) Orientation Orientation/Cognition Level of Alertness Alert Orientation Name,Place,Situation Language Function Ability No Deficits Noted Safety Awareness Decreased Safety Awareness Memory Description No Deficits Noted Gross Range of Motion Lower Extremity ROM Assessment Right Impaired Impairments R knee flexion: ~ 70 deg Strength Lower Extremity Strength Assessment Right Impaired Hip 4-/5 Knee 3+/5 Muscle Tone Muscle Tone WNL Yes M6 PT-IP Treatment Start: 06/23/23 12:09 Freq: NEEDED Status: Active Protocol: Document 06/23/23 09:50 AB (Rec: 06/23/23 12:22 AB [id number]) Physical Therapy Treatment Education Education Provided Precautions,Weight Bearing Status,Safety M7 PT-IP Assessment and Plan Start: 06/23/23 12:09 Freq: NEEDED Status: Active Protocol: Document 06/23/23 09:50 AB (Rec: 06/23/23 12:22 AB [id number]) PT Summary Assessment and Plan Potential Rehabilitation Potential Good Status of Condition at Evaluation Stable Summary Impairments Pain,ROM,Strength,Balance, Coordination,Sensation,Tone, Cognition,Bed Mobility, Transfers,Gait,Activity Tolerance Assessment Summary pt is a 77 y/o F s/p R TKA POD 1. pt is WBAT on RLE. pt requiring SBA to CGA with mobility using FWW and plans to go home with her friend to assist her. pt with h/o L TKA last year and stated that her friend that assisted her last year will be the same friend that will assist her this time again. pt may go home when medically stable. Goals Bed Mobility Goal Independent Transfer Goal Independent,Front Wheeled Walker Gait Goal Independent,Front Wheel Walker Gait Distance 250 Other Goals up/down 3 steps using B rails mod I Days to Meet Goals 5 Frequency of Treatment Frequency Of Treatment Twice a Day Treatment Plan Physical Therapy Treatment Plan Bed Mobility Training,Transfer Training,Gait Training, Therapeutic Exercise,Balance Retraining,Post Op Education, Discharge Planning,Hot or Cold Pack,Neuromuscular Re-ed, Coordination Retraining,Manual Therapy Weight Bearing Status Weight Bearing Status Weight Bear as Tolerated Allowed Weight Bearing Amount (enter % RLE WBAT or #) (%) Recommendations To Nursing Amount of Assist Needed 1 Person Assist Discharge Recommendations PT Discharge Recommendations Home with Assistance, Outpatient PT Transportation Needs at Discharge Private Vehicle
--- NOTE | 2023-06-23 11:26 | OT.IP.EVAL ---
Current Diagnoses Bilateral primary osteoarthritis of knee (06/22/23) Surgery Performed Operation Date: 06/22/23 10:45 Actual Procedures p Total Knee Arthroplasty - Robot(Right) - Liudmila Strickland MD Past Medical History (Last Reviewed 05/20/22 @ 08:08 by Cee Buitrago PA-C) Anesthesia complication Anxiety Arthritis Depression (emotion) Hearing loss HTN (hypertension) Hx of cor pulmonale Hypothyroid Irritable bowel syndrome (IBS) Pulmonary embolism Seasonal allergies UTI (urinary tract infection) (05/07/22) Surgical History (Last Updated 06/17/23 @ 08:40 by Anita Bermudez RN) History of hip surgery History of total left hip replacement (12/13/17) History of total left knee replacement (05/19/22) Hx of abdominal surgery Hx of hand surgery Hx of tooth extraction Status post cataract extraction of both eyes with insertion of intraocular lens Status post complete hysterectomy Status post surgery of both feet Occupational Therapy Inpatient Evaluation/Re-Eval M1 PT/OT-IP Prior Functional Status Start: 06/23/23 11:03 Freq: NEEDED Status: Active Protocol: Document 06/23/23 09:40 ROLF (Rec: 06/23/23 11:26 JUFLJED [id number]) Medical Review Prior Functional Status Medical History Reviewed Yes Diet/Fluid Consistency Regular Communication pt I with making needs known Mobility and Gait pt amb without AD Activities of Daily Living and IADL's pt I with all BADL and IADL including yard work Social History Household Members none Living Arrangements House Number of Floors (Floors) One Floor Number of Stairs To Enter/Railing? pt has 3 steps to enter from garage or front of house. 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 OT-IP Current Condition Start: 06/23/23 11:03 Freq: Status: Active Protocol: Document 06/23/23 09:40 ROLF (Rec: 06/23/23 11:26 JUFLJED [id number]) Occupational Therapy Current Condition Current Condition Evaluation Date 06/23/23 Treatment Diagnosis s/p R TKA Diagnosis Onset Date 06/22/23 Weight Bearing Status Weight Bearing Status Weight Bear as Tolerated M3 OT- IP Subjective and Pain Start: 06/23/23 11:03 Freq: Status: Active Protocol: Document 06/23/23 09:40 ROLF (Rec: 06/23/23 11:26 ROLF [id number]) OT- Subjective Occupational Therapy Visit Type Type Initial Evaluation Visit Start Time 09:15 Visit Stop Time 09:40 Notes Pt sitting up in chair on entrance of OT. Pt agreeable to participating in evaluation . Occupational Therapy Visit Comments Patient Comments Pt reports she will have a friend staying with hwr until she no longer needs help. Pt says she is ready to go home. OT Pain Assessment Pain When Pain Assessed At Rest Pain Present Pain Present Pain Reported Location right knee Intensity 7 Scale Used Numeric (0 - 10) Description Burning Management Techniques Apply Cold M4 OT- IP ADL's Start: 06/23/23 11:03 Freq: Status: Active Protocol: Document 06/23/23 09:40 JUMERCED (Rec: 06/23/23 11:26 JUFLJED [id number]) OT [id number] General Evaluation Self-Feeding Ability Independent Comments OT Self-Feeding Comments Pt finishing her tray at start of eval. OT ADL-Grooming General Evaluation Grooming Ability Standby Assistance Areas Needing Assistance Retrieving/Set-up of Grooming Items Comments OT Grooming Comments Pt performed sink side. Pt able to manage items that were close to sink but needed OT to gather supplies from across the room. OT ADL-Oral Care General Eval Oral Care Ability Independent Comments Oral Care Comments pt performs standing sink side . OT ADL-Dressing Comments OT Dressing Comments pt declined performing dressing at this time due to c /o being tired. OT educated pt on use of melon packer and long handled shoe horn for LB dressing. Pt reports that she does not wear socks at home. OT ADL-Toileting Comments OT Toileting Comments pt declines OT ADL-Bathing Comments OT Bathing Comments pt declines M5 OT- IP IADL's Start: 06/23/23 11:03 Freq: Status: Active Protocol: Document 06/23/23 09:40 JUTONYJED (Rec: 06/23/23 11:26 JUFLJED [id number]) OT-Instrumental Activities of Daily Living Home Safety Awareness Awareness of Need for Assistance at Home Good Awareness Ability to Problem Solve Emergency Able to Problem Solve Situations Medication Management Medication Management No Deficits Identified Money Management Money Management No Deficits Identified Meal Preparation Meal Preparation Caregiver Provides Supervision Meal Preparation Comments pt may need assist from her friend for a short while Small Parts Assembler Small Parts Assembler Caregiver Provides Assist Small Parts Assembler Comments pt may need assist from her friend for a short while Driving Driving Caregiver Provides Assist Driving Comments pt will need assist until cleared by MD Thomas OT- IP Functional Cognition Start: 06/23/23 11:03 Freq: Status: Active Protocol: Document 06/23/23 09:40 ROLF (Rec: 06/23/23 11:26 [facility] [id number]) Cognitive Factors Limiting Selfcare Function Cognitive Ability Level of Alertness Alert Patient Orientation Name,Age,Birthday,Month,Date, Year,Day of Week,Place, Situation Attention Span Ability Capable of Focused Attention Ability to Follow Commands Able to Follow One Step Commands Memory Description No Deficits Noted Safety Awareness No Deficits Noted Problem Solving Ability No deficits Noted Executive Function Ability No Deficits Noted Abstract Thinking Ability No Deficits Noted OT- Vision and Hearing OT- Hearing Assessment OT- Hearing Assessment Hearing Impaired,Use of Hearing Aids OT- Vision Assessment Visual Acuity WFL,Glasses For Reading M7 OT- IP Mobility and Balance Start: 06/23/23 11:03 Freq: Status: Active Protocol: Document 06/23/23 09:40 ROLF (Rec: 06/23/23 11:26 [facility] [id number]) OT-Transfer Assessment Sit to and From Stand Sit to and from Stand Standby Assistance Transfers Transfer Ability Standby Assistance Technique Transfer Destination Chair Transfer Technique Stand Step Pivot Devices Transfer Assistive Devices Gait Belt,Front Wheeled Walker Comments Mobility Comments pt performs sit<>stand with vcs for hand placement, keeping R LE slightly extended , and for safe use/placement of RW. OT- Gait Assessment Gait Gait Assistance Required: Standby Assistance Distance (Feet) 30 Assistive Devices Assistive Device Gait Belt,Front Wheeled Walker Comments Gait Ability Comments pt amb slowly and within RW. Pt needs vcs for safe maneuvering of RW when performing sink side ADLs. OT- Balance Assessment Sitting Balance and Reactions Static Sitting Balance Ability Normal Dynamic Sitting Balance Ability Good Standing Balance and Reactions Static Standing Balance Ability Good Dynamic Standing Balance Ability Good M8 OT- IP Objective Assessments Start: 06/23/23 11:03 Freq: Status: Active Protocol: Document 06/23/23 09:40 ROLF (Rec: 06/23/23 11:26 [facility] [id number]) OT Gross Range of Motion Upper Extremity Range of Motion Assessment Within Functional Limits OT Strength Hand Window Caser Strength Hand Dominance Right Comments Strength Comments B shoulders 4/5, B elbow flex 3+, B elbow ext 3-, B shoe stitcher odd 3+ OT- Coordination Assessment Upper Extremity Finger to Nose Test Within Functional Limits Finger Tapping Test Within Functional Limits Comments Coordination Comments pt has essential tremors in L hand OT-Muscle Tone Assessment Muscle Tone WNL Yes M9 OT- IP Assessment and Plan Start: 06/23/23 11:03 Freq: Status: Active Protocol: Document 06/23/23 09:40 ROLF (Rec: 06/23/23 11:26 [facility] [id number]) OT Summary Assessment and Plan Potential Rehabilitation Potential Excellent Analytic Complexity at Evaluation Low Summary OT Impairments Pain,Strength,Functional Mobility,Dressing,Toileting, Bathing,Toilet Transfers, Shower Transfers,Activity Tolerance Progress Towards Goals Progressing Toward Goals,Safe For Discharge Assessment Summary Pt is a 77 yo F s/p R TKA. Pt presents with muscle weakness , activity intolerance, decreased functional mobility, and decreased BADL. Skilled OT services are appropriate to address deficits and promote return to PLOF. Goals Grooming Goal Independent Dressing Goal Independent,Long Handled Shoe Horn,Mailing Clerk Toileting Goal Independent Bathing Goal Independent Toilet Transfer Goal Independent Shower Transfer Goal Independent Frequency of Treatment Frequency Of Treatment Once a Day Treatment Plan OT Treatment Plan ADL Training,Functional Mobility,Therapeutic Exercises ,Patient/Family Education Discharge Recommendations OT Discharge Recommendations Home with Assistance, Outpatient PT Home Equipment Needs long handled shoe horn Transportation Needs at Discharge Private Vehicle
--- NOTE | 2023-06-23 13:59 | PC.NURSE ---
Patient d/c teaching done at bedside with friends present. Patient states understanding of d/c instructions and states medication rx's are already filled an at home. Patient belongings gathered by friends and taken to private vehicle. VSS, patient in stable condition at d/c.
--- NOTE | 2023-06-23 15:11 | CM.DANOTE ---
Discharge Planning/Care Management CM Discharge Assessment Start: 06/23/23 15:07 Freq: Status: Active Protocol: Document 06/23/23 15:07 GRETA (Rec: 06/23/23 15:11 GRETA [id number]) Discharge Planning Assessment Assigned Chemistry Professor GEOVANI Mejia DPOA/Assigned Designee Name Demetria Gmaez (sister) [phone]. Violet (caregiver) Advance Directives? No Advance Directives on File No History Provided By Patient,Medical Record Prior Living Arrangements House Household Members none Type of transporation used prior to Drives own vehicle admit Independent with ADL's Yes Is patient alert and oriented? Yes Patient/Family Preference OP PT Therapy Barriers to Discharge No Comment Patient POD1 from right TKA. Patient had planned for discharge home with friend and hired caregiver to assist and had been cleared for therapies for that plan. No needs from this CM team identified. Discharge Plan Home Transportation Arrangement Friend Referrals Initiated None needed
== END 2023-06-23 14:26 | disposition home or self-care (01) ==
LOC: OR 08:39 → AC 08:41
PROVIDERS: PCP Physician Assistant; Referring Provider Orthopaedic Surgery; Visit Provider Orthopaedic Surgery
PROC: 0SRC0JZ Replacement of Right Knee Joint with Synthetic Substitute, Open Approach (ICD-10-PCS; CPT 27447; principal; 2023-06-22 10:45)
DX: M17.11 Unilateral primary osteoarthritis, right knee (principal); E66.9 Obesity, unspecified; Z68.38 Body mass index [BMI] 38.0-38.9, adult
CPT/HCPCS: 27447; 36415; 73560; 85014; 85018; 97161; 97165; 97530; C1776; C9290; J0171; J0690; J1100; J1170; J2060; J2250; J2405; J2704; J3010